=== PATIENT | male | born 1960 | race Caucasian/White ===

== ENCOUNTER 2016-10-11 23:04 | Inpatient (IN) | payer BC ==
[2016-10-11] MEDS ORDERED: Sodium Chloride 0.9% 1,000 ML IV SCH (23:45)
[2016-10-11] MEDS ORDERED: Sodium Chloride 0.9% 1,000 ML IV ONE ×2 (23:55)
--- NOTE | 2016-10-12 00:20 | EDM.PDOC ---
ED HPI GENERAL MEDICAL PROBLEM - General Chief Complaint: Head Injury Stated Complaint: PASSED OUT/VOMITING BLOOD Time Seen by Provider: 10/11/16 23:55 Source of Information: Reports: Patient, RN - History of Present Illness INITIAL COMMENTS - FREE TEXT/NARRATIVE: He felt abdominal discomfort yesterday. Then he had a grossly bloody stool today. He felt light headed . He fell and hit his head but without apparent injury He had some beers tonight with dinner. no he has lower abdominal discomfort - Related Data Allergies Allergy/AdvReac Type Severity Reaction Status Date / Time Iodinated Contrast Media - Allergy Hives Verified 05/23/16 19:49 Oral and Home Meds: Home Meds Aspirin [Lite Coat Aspirin] 325 mg PO DAILY 03/28/14 [History] Losartan/Hydrochlorothiazide [Losartan-HCTZ 100-12.5 MG] 1 tab PO DAILY [History] metFORMIN HCl [Metformin HCl] 500 mg PO BID 03/28/14 [History] Canagliflozin [Invokana] 300 mg PO DAILY 04/07/16 [History] Methylcellulose [Fiber] 500 mg PO DAILY 05/23/16 [History] Past Medical History Cardiovascular History: Reports: Hypertension Respiratory History: Denies: COPD Gastrointestinal History: Reports: Diverticulosis Neurological History: Denies: CVA, MS Endocrine/Metabolic History: Reports: Diabetes, Type II Dermatologic History: Reports: Cellulitis - Infectious Disease History Infectious Disease History: Reports: Chicken Pox - Past Surgical History GI Surgical History: Reports: Colonoscopy Social & Family History - Family History Family Medical History: Noncontributory - Tobacco Use Smoking Status *Q: Current Every Day Smoker Years of Tobacco use: 10 Packs/Tins Daily: 1 Second Hand Smoke Exposure: No - Caffeine Use Caffeine Use: Reports: Coffee - Alcohol Use Days Per Week of Alcohol Use: 3 Number of Drinks Per Day: 8 Total Drinks Per Week: 24 - Recreational Drug Use Recreational Drug Use: No ED ROS GENERAL - Review of Systems Review Of Systems: See Below Constitutional: Denies: Fever, Chills Respiratory: Denies: Shortness of Breath, Wheezing, Cough, Sputum, Hemoptysis Cardiovascular: Denies: Chest Pain GI/Abdominal: Reports: Bloody Stool. Denies: Hematemesis ED EXAM, HEAD INJURY - Physical Exam Exam: See Below General Appearance: No Apparent Distress Head: Normocephalic. No: Michael's Sign Throat/Mouth: Normal Inspection, Normal Voice Neck: Non-Tender Respiratory: No Respiratory Distress, Lungs Clear, Normal Breath Sounds Cardiovascular: Regular Rate, Rhythm GI/Abdominal Exam (Abbreviated): Normal Bowel Sounds, Soft, Other (diffuse lower abdominal tenderness greatest over the LLQ) Rectal (Males) Exam: Deferred Neurologic: dry cleaner presser II-XII nml As Tested, Oriented x 3 Course - Vital Signs Last Recorded V/S: Last Vital Signs Temp 96.7 F 10/11/16 23:20 Pulse 95 10/11/16 23:20 Resp 14 10/11/16 23:20 BP 105/68 10/11/16 23:20 Pulse Ox 96 10/11/16 23:20 - Orders/Labs/Meds Orders: Active Orders 24 hr Category Date Time Status Abdomen Pelvis wo Cont [CT] Stat Exams 10/12/16 00:48 Ordered UA W/MICROSCOPIC [URIN] Stat Lab 10/12/16 00:23 Uncollected Sodium Chloride 0.9% [Normal Saline] 1,000 ml Med 10/11/16 23:55 Active IV ONETIME Medication Orders Sodium Chloride (Normal Saline) 1,000 mls @ 150 mls/hr IV ONETIME ONE Stop: 10/12/16 06:34 Last Admin: 10/11/16 23:59 Dose: 150 mls/hr Labs: Laboratory Tests 10/11/16 10/11/16 10/11/16 Range/Units 00:14 23:23 23:40 WBC 17.05 H (4.0-11.0) K/uL RBC 4.49 L (4.50-5.90) M/uL Hgb 14.8 (13.0-17.0) g/dL Hct 42.1 (38.0-50.0) % MCV 93.8 (80.0-98.0) fL MCH 33.0 H (27.0-32.0) pg MCHC 35.2 (31.0-37.0) g/dL RDW Std Deviation 45.2 (28.0-62.0) fl RDW Coeff of Rajendra 13 (11.0-15.0) % Plt Count 183 (150-400) K/uL MPV 12.20 H (7.40-12.00) fL Add Manual Diff YES Neutrophils % (Manual) 81 H (48.0-80.0) % Lymphocytes % (Manual) 9 L (16.0-40.0) % Monocytes % (Manual) 10 (0.0-15.0) % Nucleated RBC % 0.0 /100WBC Absolute Seg Neuts 13.8 Lymphocytes # (Manual) 1.5 Monocytes # (Manual) 1.7 Nucleated RBCs # 0 K/uL Sodium 139 (136-146) mmol/L Potassium 3.9 (3.5-5.1) mmol/L Chloride 102 (98-110) mmol/L Carbon Dioxide 26 (21-31) mmol/L BUN 27 H (6.0-23.0) mg/dL Creatinine 1.3 (0.6-1.5) mg/dL Est Cr Clr Drug Dosing 57.94 mL/min Estimated GFR (MDRD) 57.3 ml/min Glucose 191 H (60-110) mg/dL POC Glucose 161 H (60-110) mg/dL Calcium 9.6 (8.8-10.8) mg/dL Total Bilirubin 1.6 H (0.1-1.5) mg/dL AST 17 (5-40) IU/L ALT 36 (8-54) IU/L Alkaline Phosphatase 60 (40-150) Total Protein 6.6 (6.0-8.0) g/dL Albumin 4.1 (3.5-5.0) g/dL Globulin 2.5 (2.0-3.5) g/dL Albumin/Globulin Ratio 1.6 (1.3-2.8) Ethyl Alcohol < 10.0 mg/dL Meds: Medications Generic Name Dose Route Start Last Admin Trade Name Freq PRN Reason Stop Dose Admin Sodium Chloride 1,000 mls @ 150 mls/hr 10/11/16 23:55 10/11/16 23:59 Normal Saline IV 10/12/16 06:34 150 mls/hr ONETIME ONE Administration Discontinued Medications Generic Name Dose Route Start Last Admin Trade Name Freq PRN Reason Stop Dose Admin Hydromorphone HCl 2 mg 10/12/16 01:13 10/12/16 01:17 Dilaudid IVPUSH 10/12/16 01:14 2 mg ONETIME ONE Administration Sodium Chloride 1,000 mls @ 150 mls/hr 10/11/16 23:45 Normal Saline IV ASDIRECTED ROMEL Sodium Chloride 1,000 mls @ 150 mls/hr 10/11/16 23:55 Normal Saline IV 10/12/16 06:34 ONETIME ONE Metronidazole 500 mg/ Premix 100 mls @ 100 mls/hr 10/12/16 00:23 10/12/16 00: 37 IV 10/12/16 01:22 100 mls/hr ONETIME ONE Administration Ondansetron HCl 4 mg 10/12/16 01:38 10/12/16 01:44 Zofran IVPUSH 10/12/16 01:39 4 mg ONETIME ONE Administration - Re-Assessments/Exams Free Text/Narrative Re-Assessment/Exam: 10/12/16 02:04 I discussed with him that the CT scan shows fatty liver. I advised that this might be related to his DM and I advised avoiding alcohol in light of his fatty liver disease. Departure - Departure Time of Disposition: 02:03 Disposition: Admitted As Inpatient 67 Clinical Impression: Acute diverticulitis - Discharge Information Forms: ED Department Discharge - My Orders Last 24 Hours: My Active Orders 10/11/16 23:55 Sodium Chloride 0.9% [Normal Saline] 1,000 ml IV ONETIME 10/12/16 00:23 UA W/MICROSCOPIC [URIN] Stat 10/12/16 00:48 Abdomen Pelvis wo Cont [CT] Stat - Assessment/Plan Last 24 Hours: My Active Orders 10/11/16 23:55 Sodium Chloride 0.9% [Normal Saline] 1,000 ml IV ONETIME 10/12/16 00:23 UA W/MICROSCOPIC [URIN] Stat 10/12/16 00:48 Abdomen Pelvis wo Cont [CT] Stat
[2016-10-12] MEDS ORDERED: metroNIDAZOLE/Normal Saline 500 MG in Premix Bag 1 BAG IV ONE (00:23)
[2016-10-12 00:44] LABS: CHLORIDE,CL 102 mmol/L (98-110); SODIUM,NA 139 mmol/L (136-146)
[2016-10-12] MEDS ORDERED: HYDROmorphone 1 MG/ML Syringe IVPUSH ONE (01:13)
[2016-10-12] MEDS ORDERED: Ondansetron 4 MG/2 ML SDV IVPUSH ONE (01:38)
[2016-10-12] MEDS ORDERED: Temazepam 15 MG Cap PO PRN (02:05)
[2016-10-12] MEDS ORDERED: Ondansetron 4 MG/2 ML SDV IVPUSH PRN (02:05)
[2016-10-12] MEDS ORDERED: Morphine 10 MG/ML Syringe IVPUSH PRN (02:05)
[2016-10-12] MEDS ORDERED: Acetaminophen 325 MG Tab PO PRN (02:05)
[2016-10-12] MEDS: Ciprofloxacin in D5W 400 MG in Premix Bag 1 BAG IV SCH ×4 (02:47→14:27)
[2016-10-12 05:37] LABS: CHLORIDE,CL 110 mmol/L (98-110); SODIUM,NA 142 mmol/L (136-146)
[2016-10-12] MEDS: metroNIDAZOLE/Normal Saline 500 MG in Premix Bag 1 BAG IV SCH ×3 (06:06→18:08)
[2016-10-12] MEDS ORDERED: Insulin Aspart 100 Units/ML 3 ML Pen SUBCUT SCH ×2 (07:30→12:00)
--- NOTE | 2016-10-12 08:04 | PCM.HP ---
H&P History of Present Illness - General Date of Service: 10/12/16 Admit Problem/Dx: Admission Diagnosis/Problem Admission Diagnosis/Problem Diverticulitis Source of Information: Patient History Limitations: Reports: No Limitations - History of Present Illness Initial Comments - Free Text/Narative: This 56 year old male with pmh of DM type 2, HTN and diverticulosis presented to the ED last evening with complaints of abdominal pain, bloody stools and nausea. He reports 2 days ago he felt some lower abdominal pain and decreased his oral intake. Yesterday He was feeling better around lunch time so he ate some chicken and vegetables and tolerated that well. Around supper time he felt hungry ate and him and his went out to eat, had 2 beers and some nachos, which went well. It was later around 9 pm he suddenly needed to use the bathroom and have lower abdominal pain. The stool was "pure blood" and diarrhea. This happened a few more times and he passed out when he was going to the bathroom. He was then brought to the ED with his . He reports having a episode of diverticulitis in Apr 2016,in which he was hospitalized, treated with bowel rest, IVFs and antibiotics. He saw a surgeon during that admission and she recommended a colonoscopy after that episode had resolved. He had not since follow through with this. His last colonoscopy was with Dr. Baum 5-6 years ago, which the patient reported it was normal, except for diverticulosis. He has never have bloody stools before and this makes him very nervous. He denies recent out of the country travel, no recent antibiotics, no iffy foods or sushi, and pets he is around are health with no diarrhea. He denies headache , fevers, chest pain or palpitations. No urinary symptoms. The abdominal pain is located mainly across the lower abdomen, dull achey in feeling 3/10 at this time. No nausea or vomiting. No further diarrhea, but feels like he might need to go soon. In the ED leukocytosis noted, 17,050, hgb 14.8 BUN 27, Cr 1.3, BS 191, Bili 1.6 AST/ALT WNL. VS WNL no fever noted. CT of abdomen revealed acute diverticulitis along the mid descending color without perforation or abscess. He was given IVFs , Ciprofloxacin and Flagyl in the ED. He was admitted for acute diverticulitis. PCP, Dr. Laguerre. Abdomen Pain Score (Numeric/FACES): 3 - Related Data Allergies/Adverse Reactions: Allergies Allergy/AdvReac Type Severity Reaction Status Date / Time Iodinated Contrast Media - Allergy Hives Verified 05/23/16 19:49 Oral and Home Medications: Home Meds Aspirin [Lite Coat Aspirin] 325 mg PO DAILY 03/28/14 [History] Losartan/Hydrochlorothiazide [Losartan-HCTZ 100-12.5 MG] 1 tab PO DAILY [History] metFORMIN HCl [Metformin HCl] 500 mg PO BID 03/28/14 [History] Canagliflozin [Invokana] 300 mg PO DAILY 04/07/16 [History] Methylcellulose [Fiber] 500 mg PO DAILY 05/23/16 [History] Past Medical History Cardiovascular History: Reports: Hypertension. Denies: Afib, Blood Clots/VTE/ DVT, High Cholesterol, OR Respiratory History: Reports: None. Denies: Asthma, COPD, PE Gastrointestinal History: Reports: Diverticulosis. Denies: GI Bleed Musculoskeletal History: Reports: None Neurological History: Reports: None Endocrine/Metabolic History: Reports: Diabetes, Type II, Obesity/BMI 30+. Denies: Hypothyroidism Dermatologic History: Reports: Cellulitis - Infectious Disease History Infectious Disease History: Reports: Chicken Pox - Past Surgical History Respiratory Surgical History: Reports: None GI Surgical History: Reports: Colonoscopy Social & Family History - Family History Family Medical History: Noncontributory - Tobacco Use Smoking Status *Q: Never Smoker Tobacco Use Within Last Twelve Months: Smokeless Tobacco Years of Tobacco use: 10 Packs/Tins Daily: 1 Second Hand Smoke Exposure: No - Caffeine Use Caffeine Use: Reports: Coffee - Alcohol Use Days Per Week of Alcohol Use: 1 Number of Drinks Per Day: 6 Total Drinks Per Week: 6 Date of Last Drink: 10/12/16 Time of Last Drink: 18:00 Alcohol Use Frequency: Socially - Recreational Drug Use Recreational Drug Use: No - Living Situation & Occupation Living situation: Reports: Occupation: Employed H&P Review of Systems - Review of Systems: Review Of Systems: See Below General: Reports: No Symptoms. Denies: Fever, Chills, Malaise HEENT: Reports: No Symptoms, Post Nasal Drip. Denies: Headaches, Sinus Congestion, Sore Throat Pulmonary: Reports: No Symptoms. Denies: Shortness of Breath, Cough, Sputum Cardiovascular: Reports: No Symptoms. Denies: Chest Pain, Palpitations, Dyspnea on Exertion, Edema Gastrointestinal: Reports: Abdominal Pain, Bloody Stool, Diarrhea, Flatus, Nausea. Denies: Distension, Vomiting Genitourinary: Reports: No Symptoms. Denies: Dysuria, Frequency, Burning, Retention, Flank Pain Musculoskeletal: Reports: No Symptoms. Denies: Neck Pain, Back Pain Skin: Reports: No Symptoms Psychiatric: Reports: No Symptoms Neurological: Reports: No Symptoms Hematologic/Lymphatic: Reports: No Symptoms Immunologic: Reports: No Symptoms Exam - Exam Exam: See Below - Vital Signs Vital Signs: Last Vital Signs Temp 97.8 F 10/12/16 07:00 Pulse 87 10/12/16 07:00 Resp 16 10/12/16 07:00 BP 100/68 10/12/16 07:00 Pulse Ox 95 10/12/16 07:00 Weight: 88 kg - Exam General: Alert, Oriented, Cooperative HEENT: Conjunctiva Clear, Mucosa Moist & [place], Nares Patent, Posterior Pharynx Clear, Pupils Reactive Neck: Supple, Trachea Midline. No: JVD Lungs: Clear to Auscultation, Normal Respiratory Effort Cardiovascular: Regular Rate, Regular Rhythm Abdomen: Normal Bowel Sounds, Soft, Tenderness (across lower abdomena and LLQ). No: Distention, Guarding, Rigidity, Rebound Back Exam: Normal Inspection, Full Range of Motion Extremities: Normal Inspection, Normal Pulses. No: Edema Neurological: Cranial Nerves Intact Neuro Extensive - Mental Status: Alert, Oriented x3, Normal Mood/Affect, Normal Cognition Neuro Extensive - Motor, Sensory, Reflexes: Normal Gait Psychiatric: Alert, Normal Affect, Normal Mood - Patient Data Lab Results last 24 hrs: Laboratory Results - last 24 hr 10/12/16 10/12/16 Range/Units 04:35 04:35 WBC 13.47 H (4.0-11.0) K/uL RBC 4.18 L (4.50-5.90) M/uL Hgb 13.5 (13.0-17.0) g/dL Hct 39.9 (38.0-50.0) % MCV 95.5 (80.0-98.0) fL MCH 32.3 H (27.0-32.0) pg MCHC 33.8 (31.0-37.0) g/dL RDW Std Deviation 45.3 (28.0-62.0) fl RDW Coeff of Rajendra 13 (11.0-15.0) % Plt Count 235 (150-400) K/uL MPV 10.50 (7.40-12.00) fL Add Manual Diff YES Neutrophils % (Manual) 85 H (48.0-80.0) % Band Neutrophils % 2 % Lymphocytes % (Manual) 9 L (16.0-40.0) % Monocytes % (Manual) 4 (0.0-15.0) % Nucleated RBC % 0.0 /100WBC Absolute Seg Neuts 11.4 Band Neutrophils # 0.3 Lymphocytes # (Manual) 1.2 Monocytes # (Manual) 0.5 Nucleated RBCs # 0 K/uL Sodium 142 (136-146) mmol/L Potassium 4.6 (3.5-5.1) mmol/L Chloride 110 (98-110) mmol/L Carbon Dioxide 21 (21-31) mmol/L BUN 26 H (6.0-23.0) mg/dL Creatinine 0.9 (0.6-1.5) mg/dL Est Cr Clr Drug Dosing 83.69 mL/min Estimated GFR (MDRD) > 60.0 ml/min Glucose 156 H (60-110) mg/dL Calcium 8.9 (8.8-10.8) mg/dL Result Diagrams: 10/12/16 04:35 10/12/16 04:35 *Q Meaningful Use (ADM) - VTE *Q VTE Criteria *Q: - VTE Risk Assess *Q Each Risk Factor Represents 1 Point: Age 41 - 59 years, History Inflammatory Bowel Disease, Obesity (BMI greater than 30) Total Score 1 Point Risk Factors: 3 Each Risk Factor Represents 2 Points: None Total Score 2 Point Risk Factors: 0 Each Risk Factor Represents 3 Points: None Total Score 3 Point Risk Factors: 0 Each Risk Factor Represents 5 Points: None Total Score 5 Point Risk Factors: 0 Venous Thromboembolism Risk Factor Score *Q: 3 - Stroke *Q Stroke Criteria *Q: - AMI *Q AMI Criteria *Q: - Problem List (1) Acute diverticulitis SNOMED Code(s): 754326162 ICD Code: K57.92 - DVTRCLI OF INTEST, PART UNSP, W/O PERF OR ABSCESS W/O BLEED Status: Acute Current Visit: Yes (2) DM type 2 (diabetes mellitus, type 2) SNOMED Code(s): 28771836 ICD Code: E11.9 - TYPE 2 DIABETES MELLITUS WITHOUT COMPLICATIONS Status: Chronic Current Visit: Yes Qualifiers: Diabetes mellitus complication status: without complication Diabetes mellitus jail insulin use: without manager intermediate use Qualified Code(s): E11.9 - Type 2 diabetes mellitus without complications (3) HTN (hypertension) SNOMED Code(s): 15233390 ICD Code: I10 - ESSENTIAL (PRIMARY) HYPERTENSION Status: Chronic Current Visit: Yes Qualifiers: Hypertension type: essential hypertension Qualified Code(s): I10 - Essential (primary) hypertension (4) Obesity (BMI 30.0-34.9) SNOMED Code(s): 209143124 ICD Code: E66.9 - OBESITY, UNSPECIFIED Status: Chronic Current Visit: Yes Problem List Initiated/Reviewed/Updated: Yes Orders Last 24hrs: Active Orders 24 hr Category Date Time Status Blood Glucose Check, Bedside [] QIDACANDBED Care 10/12/16 02:11 Active NPO [Nothing Per Oral Diet] [DIET] Diet 10/12/16 Breakfast Ordered Canagliflozin [Invokana] Med 10/12/16 09:00 Active 300 mg PO DAILY Insulin Aspart [NovoLOG] Med 10/12/16 07:30 Active See Protocol SUBCUT ACBREAKFASTANDBED Losartan/Hydrochlorothiazide [Losartan-HCTZ 100-12.5 MG Med 10/12/16 09:00 Active ] 1 tab PO DAILY Medication Orders Acetaminophen (Tylenol) 650 mg PO Q4H PRN PRN Reason: Pain (Mild 1-3)/fever Sodium Chloride (Normal Saline) 1,000 mls @ 100 mls/hr IV ONETIME ONE Stop: 10/12/16 09:54 Last Admin: 10/11/16 23:59 Dose: 150 mls/hr Ciprofloxacin/Dextrose 400 mg/ (Premix) 200 mls @ 200 mls/hr IV Q12H ROMEL Last Admin: 10/12/16 02:47 Dose: 200 mls/hr Metronidazole 500 mg/ Premix 100 mls @ 100 mls/hr IV Q6H ROMEL Last Admin: 10/12/16 06:06 Dose: 100 mls/hr Insulin Aspart (Novolog) 0 unit SUBCUT ACBREAKFASTANDBED ROMEL PRN Reason: Protocol Last Admin: 10/12/16 06:54 Dose: Not Given Morphine Sulfate (Morphine) 4 mg IVPUSH Q2H PRN PRN Reason: Pain (severe 7-10) Stop: 10/13/16 02:07 Last Admin: 10/12/16 03:40 Dose: 4 mg Non-Formulary Medication (Losartan/Hydrochlorothiazide [Losartan-Hctz 100-12.5 Mg]) 1 tab PO DAILY ROMEL Non-Formulary Medication (Canagliflozin [Invokana]) 300 mg PO DAILY [facility] Ondansetron HCl (Zofran) 4 mg IVPUSH Q4H PRN PRN Reason: Nausea Temazepam (Restoril) 15 mg PO BEDTIME PRN PRN Reason: Sleep Assessment/Plan Comment:: This 56 year old male admitted with acute diverticulitis 1. Acute diverticulitis: Will treat with Ciprofloxacin and Flagy, Leukocytosis improving. IVFs, bowel rest and analgesia PRN. Ice chips ok. Will obtain stool studies due to diarrhea and ronaldo blood. Check hemoccult. Hgb 13.5 this morning , will recheck H/H this afternoon. No stools since admission. Will arrange follow up with Dr Keen, per patient request, for possible endoscopy after resolution of flare. 2. DM type 2: Hold po meds, Novolog SSI and monitor BS Q6hr while NPO 3. HTN: Hold PO meds for now, stable. Monitor. VTE prohlyaxis: SCDs only due to bloody stool reported by patient Dispo: 1-3 days pending improvement.
[2016-10-12] MEDS ORDERED: Morphine 4 MG/ML Syringe IVPUSH PRN (08:18)
[2016-10-12] MEDS ORDERED: Non-Formulary Medication 1 Each (Canagliflozin [Invokana] 300 MG) PO SCH (09:00)
[2016-10-12] MEDS: Sodium Chloride 0.9% 1,000 ML IV SCH ×2 (09:08→20:27)
[2016-10-12] MEDS: Pantoprazole 40 MG in Sodium Chloride 0.9% 10 ML IVPUSH SCH ×2 (09:15→20:27)
--- NOTE | 2016-10-12 10:53 | CT ---
EXAM DATE: 10/12/16 PATIENT'S AGE: 56 Patient: NICOLAS OWENS Facility: [place], [place] Site . Site : [id number] Study: CT Abdomen/Pelvis [id number]/18/2017 1:42:03 AM Ordering Physician: Katalina Lyon Final Report: INDICATION: abd pain TECHNIQUE: CT abdomen and pelvis without contrast. COMPARISON: May 23, 2016. FINDINGS: Lower chest: Unremarkable. Liver: Mild diffuse fatty infiltration of the liver. Spleen: Unremarkable. Pancreas: Unremarkable. Gallbladder and bile ducts: Unremarkable. Kidneys: Unremarkable. No kidney or ureteral stones and no hydronephrosis. Adrenal glands: Stable macroscopic fat containing 6 mm lesion within the right adrenal gland consistent with a angiomyolipoma. GI tract: Acute diverticulitis along the mid descending colon with no evidence of perforation or abscess formation. . Appendix is normal. Vascular structures: Atherosclerotic disease. Lymph nodes: Unremarkable. Miscellaneous: Unremarkable. No free air or significant free fluid. Pelvic Organs: Enlarged prostate associated prostatic calcifications. Bones: Degenerative changes. IMPRESSION: Acute diverticulitis along the mid descending colon with no evidence of perforation or abscess formation. The remainder of the examination is otherwise stable as described above. . Dictated by Will Bagley MD @ 10/12/2016 1:57:57 AM Dictated by: Will Bagley MD @ 10/12/2016 01:58:13 (Electronic Signature) Report Signed by Proxy. [facility]
[2016-10-12] MEDS: Insulin Aspart 100 Units/ML 3 ML Pen SUBCUT SCH (17:24)
[2016-10-13] MEDS: metroNIDAZOLE/Normal Saline 500 MG in Premix Bag 1 BAG IV SCH ×2 (00:30→06:22)
[2016-10-13] MEDS: Ciprofloxacin in D5W 400 MG in Premix Bag 1 BAG IV SCH ×2 (01:39)
[2016-10-13 05:33] LABS: CHLORIDE,CL 110 mmol/L (98-110); SODIUM,NA 140 mmol/L (136-146)
[2016-10-13] MEDS: Sodium Chloride 0.9% 1,000 ML IV SCH (06:22)
[2016-10-13] MEDS: Insulin Aspart 100 Units/ML 3 ML Pen SUBCUT SCH ×2 (06:29→12:28)
[2016-10-13] MEDS: Pantoprazole 40 MG in Sodium Chloride 0.9% 10 ML IVPUSH SCH (07:34)
[2016-10-13 07:39] VITALS: BP 114/77
--- NOTE | 2016-10-13 08:50 | PCM.DCSUM1 ---
Discharge Summary - Hospital Course Brief History: This 56 year old male with pmh of DM type 2, HTN and diverticulosis presented to the ED 10/12/2016 evening with complaints of abdominal pain, bloody stools and nausea. He reports 2 days prior to coming to the ED, he felt some lower abdominal pain and decreased his oral intake. 2016, he was feeling better around lunch time so he ate some chicken and vegetables and tolerated that well. Around supper time he felt hungry ate and him and his went out to eat, had 2 beers and some nachos, which went well. It was later around 9 pm he suddenly needed to use the bathroom and have lower abdominal pain. The stool was "pure blood" and diarrhea. This happened a few more times and he passed out when he was going to the bathroom. He was then brought to the ED with his . He reports having a episode of diverticulitis in Apr 2016,in which he was hospitalized, treated with bowel rest, IVFs and antibiotics. He saw a surgeon during that admission and she recommended a colonoscopy after that episode had resolved. He had not since follow through with this. His last colonoscopy was with Dr. Baum 5-6 years ago, which the patient reported it was normal, except for diverticulosis. He has never have bloody stools before and this makes him very nervous. He denies recent out of the country travel, no recent antibiotics, no iffy foods or sushi, and pets he is around are health with no diarrhea. He denies headache, fevers, chest pain or palpitations. No urinary symptoms. The abdominal pain is located mainly across the lower abdomen, dull achey in feeling 3/10 at this time. No nausea or vomiting. No further diarrhea. In the ED leukocytosis noted, 17,050, hgb 14.8 BUN 27, Cr 1.3, BS 191, Bili 1.6 AST/ALT WNL. VS WNL no fever noted. CT of abdomen revealed acute diverticulitis along the mid descending color without perforation or abscess. He was given IVFs, Ciprofloxacin and Flagyl in the ED. He was admitted for acute diverticulitis. PCP, Dr. Laguerre. - Discharge Data Discharge Date: 10/13/16 Discharge Disposition: Home, Self-Care 01 Condition: Fair - Discharge Diagnosis/Problem(s) (1) Acute diverticulitis SNOMED Code(s): 294655823 ICD Code: K57.92 - DVTRCLI OF INTEST, PART UNSP, W/O PERF OR ABSCESS W/O BLEED Status: Acute Current Visit: Yes (2) DM type 2 (diabetes mellitus, type 2) SNOMED Code(s): 57104083 ICD Code: E11.9 - TYPE 2 DIABETES MELLITUS WITHOUT COMPLICATIONS Status: Chronic Current Visit: Yes Qualifiers: Diabetes mellitus complication status: without complication Diabetes mellitus intermediate insulin use: without intermediate school teacher use Qualified Code(s): E11.9 - Type 2 diabetes mellitus without complications (3) HTN (hypertension) SNOMED Code(s): 35896944 ICD Code: I10 - ESSENTIAL (PRIMARY) HYPERTENSION Status: Chronic Current Visit: Yes Qualifiers: Hypertension type: essential hypertension Qualified Code(s): I10 - Essential (primary) hypertension (4) Obesity (BMI 30.0-34.9) SNOMED Code(s): 237338310 ICD Code: E66.9 - OBESITY, UNSPECIFIED Status: Chronic Current Visit: Yes - Patient Instructions Diet: GI Soft/Low Residue/Low Fiber Activity: As Tolerated Showering/Bathing: May Shower Notify Provider of: Fever, Increased Pain, Swelling and Redness, Drainage, Nausea and/or Vomiting Other/Special Instructions: No alochol consumption while taking antibiotics. - Discharge Plan Home Medications: Home Meds RX: Aspirin [Lite Coat Aspirin] 325 mg PO DAILY 03/28/14 [History] RX: Losartan/Hydrochlorothiazide [Losartan-HCTZ 100-12.5 MG] 1 tab PO DAILY 06/10 [History] RX: metFORMIN HCl [Metformin HCl] 500 mg PO BID 03/28/14 [History] RX: Canagliflozin [Invokana] 300 mg PO DAILY 04/07/16 [History] RX: Methylcellulose [Fiber] 500 mg PO DAILY 05/23/16 [History] Patient Handouts: Diverticulitis, [id number] Referrals: Kaylee Keen MD [Physician] - 10/27/16 9:30 am Sachin Laguerre MD [Primary Care Provider] - 10/19/16 1:45 pm - Discharge Summary/Plan Comment DC Time >30 min.: No Discharge Summary/Plan Comment: Discharge Diagnoses; Acute diverticulitis without perforation or abscess, with bleeding HTN DM Type 2 Diverticulosis Lloyd was admitted and treated with bowel rest, IVFs, and Ciprofloxacin and Flagyl. He needed very little analgesia for pain. Last evening he was requesting some CL, allowed this and tolerated them well overnight without N/V or increased pain. This morning diet was advanced to FL. He is tolerating this and very eager for discharge. He has had no further stools in the hospital. He is passing gas. Hgb did decreased to 12.6 after admission, but has remained stable overnight, today 12.1. We have arranged appointments with Dr. Keen, general surgeon for follow and and endoscopy. I also spoke with PCP, Dr Laguerre who is aware of admission and will follow up with patient next week in clinic. I will discharge Lloyd home today with Cipro and Flagyl for another 12 days, total of 14 day course. I have encouraged him to keep soft low fiber diet for the next 2 weeks and then slowly introduce fibrous foods and his daily fiber supplement and continue with high fiber diet. He is to return to clinic or ED if concerns should arise. - General Info Date of Service: 10/13/16 Admission Dx/Problem (Free Text: Admission Diagnosis/Problem Admission Diagnosis/Problem Diverticulitis Subjective Update: Eager to have some oatmeal. Tolerating CL diet well, with no N/V or increased pain. Only has some tenderness to lower left abdomen and slightly extending up to LUQ. He denies any further BMs since the bloody ones at home prior to admission, he is passing flatus. No chest pain or SOB. Very eager for discharge today. Functional Status: Reports: pain controlled, tolerating diet, ambulating, urinating - Review of Systems General: Reports: No Symptoms HEENT: Reports: no symptoms Pulmonary: Reports: no symptoms. Denies: shortness of breath, cough, sputum Cardiovascular: Reports: No Symptoms. Denies: Chest Pain, Edema Gastrointestinal: Reports: Abdominal pain (tenderness to Left lower abdomen and slight extending up to LUQ), Flatus. Denies: Diarrhea, Nausea, Vomiting Genitourinary: Reports: no symptoms. Denies: dysuria, frequency, burning Musculoskeletal: Reports: no symptoms Skin: Reports: no symptoms Neurological: Reports: No Symptoms Psychiatric: Reports: no symptoms - Patient Data Vitals - Most Recent: Last Vital Signs Temp 98.2 F 10/13/16 07:38 Pulse 77 10/13/16 07:38 Resp 14 10/13/16 07:38 BP 114/77 10/13/16 07:38 Pulse Ox 95 10/13/16 07:38 Weight - Most Recent: 88 kg I&O - Last 24 hours: Intake & Output 10/12/16 10/13/16 10/13/16 22:59 06:59 14:59 Intake Total 1330 2150 Output Total 800 2400 Balance 530 -250 Lab Results - Last 24 hrs: Laboratory Results - last 24 hr 10/12/16 10/12/16 10/12/16 Range/Units 06:31 06:45 11:33 WBC (4.0-11.0) K/uL RBC (4.50-5.90) M/uL Hgb (13.0-17.0) g/dL Hct (38.0-50.0) % MCV (80.0-98.0) fL MCH (27.0-32.0) pg MCHC (31.0-37.0) g/dL RDW Std Deviation (28.0-62.0) fl RDW Coeff of Rajendra (11.0-15.0) % Plt Count (150-400) K/uL MPV (7.40-12.00) fL Neut % (Auto) (48.0-80.0) % Lymph % (Auto) (16.0-40.0) % Simpson % (Auto) (0.0-15.0) % Eos % (Auto) (0.0-7.0) % Baso % (Auto) (0.0-1.5) % Neut # (Auto) (1.4-5.7) K/uL Lymph # (Auto) (0.6-2.4) K/uL Simpson # (Auto) (0.0-0.8) K/uL Eos # (Auto) (0.0-0.7) K/uL Baso # (Auto) (0.0-0.1) K/uL Nucleated RBC % /100WBC Nucleated RBCs # K/uL Sodium (136-146) mmol/L Potassium (3.5-5.1) mmol/L Chloride (98-110) mmol/L Carbon Dioxide (21-31) mmol/L BUN (6.0-23.0) mg/dL Creatinine (0.6-1.5) mg/dL Est Cr Clr Drug Dosing mL/min Estimated GFR (MDRD) ml/min Glucose (60-110) mg/dL POC Glucose 118 H 102 (60-110) mg/dL Calcium (8.8-10.8) mg/dL Urine Color YELLOW Urine Appearance CLEAR Urine pH 5.5 (5.0-8.0) Ur Specific [place] 1.025 (1.001-1.035) Urine Protein NEGATIVE (NEGATIVE) mg/dL Urine Glucose (UA) >=1000 (NEGATIVE) mg/dL Urine Ketones 15 H (NEGATIVE) mg/dL Urine Occult Blood NEGATIVE (NEGATIVE) Urine Nitrite NEGATIVE (NEGATIVE) Urine Bilirubin NEGATIVE (NEGATIVE) Urine Urobilinogen 0.2 (<2.0) EU/dL Ur Leukocyte Esterase NEGATIVE (NEGATIVE) Urine RBC 0-1 (0-2/HPF) Urine WBC 0-1 (0-5/HPF) Ur Epithelial Cells RARE (NONE-FEW) Amorphous Sediment RARE (NEGATIVE) Urine Bacteria RARE (NEGATIVE) 10/12/16 10/12/16 10/13/16 Range/Units 13:04 16:25 00:37 WBC (4.0-11.0) K/uL RBC (4.50-5.90) M/uL Hgb 12.6 L (13.0-17.0) g/dL Hct 38.0 (38.0-50.0) % MCV (80.0-98.0) fL MCH (27.0-32.0) pg MCHC (31.0-37.0) g/dL RDW Std Deviation (28.0-62.0) fl RDW Coeff of Rajendra (11.0-15.0) % Plt Count (150-400) K/uL MPV (7.40-12.00) fL Neut % (Auto) (48.0-80.0) % Lymph % (Auto) (16.0-40.0) % Simpson % (Auto) (0.0-15.0) % Eos % (Auto) (0.0-7.0) % Baso % (Auto) (0.0-1.5) % Neut # (Auto) (1.4-5.7) K/uL Lymph # (Auto) (0.6-2.4) K/uL Simpson # (Auto) (0.0-0.8) K/uL Eos # (Auto) (0.0-0.7) K/uL Baso # (Auto) (0.0-0.1) K/uL Nucleated RBC % /100WBC Nucleated RBCs # K/uL Sodium (136-146) mmol/L Potassium (3.5-5.1) mmol/L Chloride (98-110) mmol/L Carbon Dioxide (21-31) mmol/L BUN (6.0-23.0) mg/dL Creatinine (0.6-1.5) mg/dL Est Cr Clr Drug Dosing mL/min Estimated GFR (MDRD) ml/min Glucose (60-110) mg/dL POC Glucose 92 103 (60-110) mg/dL Calcium (8.8-10.8) mg/dL Urine Color Urine Appearance Urine pH (5.0-8.0) Ur Specific [place] (1.001-1.035) Urine Protein (NEGATIVE) mg/dL Urine Glucose (UA) (NEGATIVE) mg/dL Urine Ketones (NEGATIVE) mg/dL Urine Occult Blood (NEGATIVE) Urine Nitrite (NEGATIVE) Urine Bilirubin (NEGATIVE) Urine Urobilinogen (<2.0) EU/dL Ur Leukocyte Esterase (NEGATIVE) Urine RBC (0-2/HPF) Urine WBC (0-5/HPF) Ur Epithelial Cells (NONE-FEW) Amorphous Sediment (NEGATIVE) Urine Bacteria (NEGATIVE) 10/13/16 10/13/16 10/13/16 Range/Units 04:55 04:55 06:27 WBC 6.73 (4.0-11.0) K/uL RBC 3.74 L (4.50-5.90) M/uL Hgb 12.1 L (13.0-17.0) g/dL Hct 35.7 L (38.0-50.0) % MCV 95.5 (80.0-98.0) fL MCH 32.4 H (27.0-32.0) pg MCHC 33.9 (31.0-37.0) g/dL RDW Std Deviation 45.1 (28.0-62.0) fl RDW Coeff of Rajendra 13 (11.0-15.0) % Plt Count 198 (150-400) K/uL MPV 10.20 (7.40-12.00) fL Neut % (Auto) 67.1 (48.0-80.0) % Lymph % (Auto) 23.0 (16.0-40.0) % Simpson % (Auto) 7.3 (0.0-15.0) % Eos % (Auto) 1.9 (0.0-7.0) % Baso % (Auto) 0.7 (0.0-1.5) % Neut # (Auto) 4.5 (1.4-5.7) K/uL Lymph # (Auto) 1.6 (0.6-2.4) K/uL Simpson # (Auto) 0.5 (0.0-0.8) K/uL Eos # (Auto) 0.1 (0.0-0.7) K/uL Baso # (Auto) 0.1 (0.0-0.1) K/uL Nucleated RBC % 0.0 /100WBC Nucleated RBCs # 0 K/uL Sodium 140 (136-146) mmol/L Potassium 3.7 (3.5-5.1) mmol/L Chloride 110 (98-110) mmol/L Carbon Dioxide 23 (21-31) mmol/L BUN 13 (6.0-23.0) mg/dL Creatinine 0.8 (0.6-1.5) mg/dL Est Cr Clr Drug Dosing 94.15 mL/min Estimated GFR (MDRD) > 60.0 ml/min Glucose 108 (60-110) mg/dL POC Glucose 102 (60-110) mg/dL Calcium 8.4 L (8.8-10.8) mg/dL Urine Color Urine Appearance Urine pH (5.0-8.0) Ur Specific [place] (1.001-1.035) Urine Protein (NEGATIVE) mg/dL Urine Glucose (UA) (NEGATIVE) mg/dL Urine Ketones (NEGATIVE) mg/dL Urine Occult Blood (NEGATIVE) Urine Nitrite (NEGATIVE) Urine Bilirubin (NEGATIVE) Urine Urobilinogen (<2.0) EU/dL Ur Leukocyte Esterase (NEGATIVE) Urine RBC (0-2/HPF) Urine WBC (0-5/HPF) Ur Epithelial Cells (NONE-FEW) Amorphous Sediment (NEGATIVE) Urine Bacteria (NEGATIVE) Med Orders - Current: Current Medications Acetaminophen (Tylenol) 650 mg PO Q4H PRN PRN Reason: Pain (Mild 1-3)/fever Ciprofloxacin/Dextrose 400 mg/ (Premix) 200 mls @ 200 mls/hr IV Q12H [facility] Last Admin: 10/13/16 01:39 Dose: 200 mls/hr Metronidazole 500 mg/ Premix 100 mls @ 100 mls/hr IV Q6H [facility] Last Admin: 10/13/16 06:22 Dose: 100 mls/hr Pantoprazole Sodium 40 mg/ (Sodium Chloride) 10 mls @ 300 mls/hr IVPUSH Q12H [facility] Last Admin: 10/13/16 07:34 Dose: 300 mls/hr Sodium Chloride (Normal Saline) 1,000 mls @ 125 mls/hr IV ASDIRECTED [facility] Last Admin: 10/13/16 06:22 Dose: 125 mls/hr Insulin Aspart (Novolog) 0 unit SUBCUT TIDAC [facility] PRN Reason: Protocol Last Admin: 10/13/16 06:29 Dose: Not Given Morphine Sulfate (Morphine) 4 mg IVPUSH Q2H PRN PRN Reason: Pain (severe 7-10) Ondansetron HCl (Zofran) 4 mg IVPUSH Q4H PRN PRN Reason: Nausea Discontinued Medications Hydromorphone HCl (Dilaudid) 2 mg IVPUSH ONETIME ONE Stop: 10/12/16 01:14 Last Admin: 10/12/16 01:17 Dose: 2 mg Sodium Chloride (Normal Saline) 1,000 mls @ 150 mls/hr IV ASDIRECTED [facility] Sodium Chloride (Normal Saline) 1,000 mls @ 150 mls/hr IV ONETIME ONE Stop: 10/12/16 06:34 Sodium Chloride (Normal Saline) 1,000 mls @ 100 mls/hr IV ONETIME ONE Stop: 10/12/16 09:54 Last Admin: 10/11/16 23:59 Dose: 150 mls/hr Metronidazole 500 mg/ Premix 100 mls @ 100 mls/hr IV ONETIME ONE Stop: 10/12/16 01:22 Last Admin: 10/12/16 00:37 Dose: 100 mls/hr Insulin Aspart (Novolog) 0 unit SUBCUT ACBREAKFASTANDBED [facility] PRN Reason: Protocol Last Admin: 10/12/16 06:54 Dose: Not Given Insulin Aspart (Novolog) 0 unit SUBCUT Q6H [facility] PRN Reason: Protocol Last Admin: 10/12/16 11:55 Dose: Not Given Morphine Sulfate (Morphine) 4 mg IVPUSH Q2H PRN PRN Reason: Pain (severe 7-10) Last Admin: 10/12/16 03:40 Dose: 4 mg Non-Formulary Medication (Losartan/Hydrochlorothiazide [Losartan-Hctz 100-12.5 Mg]) 1 tab PO DAILY [facility] Non-Formulary Medication (Canagliflozin [Invokana]) 300 mg PO DAILY [facility] Ondansetron HCl (Zofran) 4 mg IVPUSH ONETIME ONE Stop: 10/12/16 01:39 Last Admin: 10/12/16 01:44 Dose: 4 mg Temazepam (Restoril) 15 mg PO BEDTIME PRN PRN Reason: Sleep - Exam General: Reports: alert, oriented, cooperative HEENT: Reports: Pupils equal, Pupils reactive, EOMI, Mucous membr. moist/pink Neck: Reports: supple Lungs: Reports: Clear to auscultation, Normal respiratory effort Cardiovascular: Reports: Regular Rate, Regular Rhythm Abdomen: Reports: bowel sounds present, soft, no distension. Denies: rigidity, rebound, guarding, tenderness (scant tenderness to palpation.), organomegaly Extremities: Reports: no edema, normal pulses Neurological: Reports: no new focal deficit Psy/Mental Status: Reports: alert, normal affect, normal mood *Q Meaningful Use (DIS) - VTE *Q VTE Criteria *Q: - Stroke *Q Stroke Criteria *Q: - AMI *Q AMI Criteria *Q:
== END 2016-10-13 12:40 | disposition home or self-care (01) | DRG 244 ==
LOC: MW.ED 23:04 → MW.MS 10-12 02:05
PROVIDERS: ADMIT Family Medicine; ATTEND Family Medicine
DX: K57.92 Diverticulitis of intestine, part unspecified, without perforation or abscess without bleeding (principal); E11.9 Type 2 diabetes mellitus without complications; I10 Essential (primary) hypertension; E66.9 Obesity, unspecified; Z68.32 Body mass index [BMI] 32.0-32.9, adult; Z91.041 Radiographic dye allergy status; Z79.82 Long term (current) use of aspirin; Z79.899 Other long term (current) drug therapy
CPT/HCPCS: 36415; 74176; 74176-26; 80048; 80053; 81001; 82962; 85014; 85018; 85025; 96361; 96365; 96375; 99284; 99285-25; C9113; G0480; J0744; J1170; J1815-GY; J2270; J2405; J7040

== ENCOUNTER 2016-11-23 07:20 | Day surgery (SDC) | payer BC ==
[~2016-11-23 07:20] MED LIST: Lactated Ringers 1,000 ML IV SCH; Sodium Chloride 0.9% 10 ML Syringe FLUSH PRN; Sodium Chloride 0.9% 2.5 ML Syringe FLUSH PRN
--- NOTE | 2016-11-23 07:57 | PCM.PREANE ---
Preanesthetic Assessment - Anesthesia/Transfusion/Family Hx Anesthesia History: No Prior Anesthesia Family History of Anesthesia Reaction: No Transfusion History: No Prior Transfusion(s) - Review of Systems General: No Symptoms Pulmonary: No Symptoms Cardiovascular: No Symptoms Gastrointestinal: No symptoms Neurological: No Symptoms Other: Reports: None - Physical Assessment NPO Status Date: 11/22/16 O2 Sat by Pulse Oximetry: 97 Respiratory Rate: 16 Vital Signs: Last Vital Signs Temp 36.2 C 11/23/16 07:26 Pulse 73 11/23/16 07:26 Resp 16 11/23/16 07:26 BP 112/71 11/23/16 07:26 Pulse Ox 97 11/23/16 07:26 Height: 1.68 m Weight: 87.997 kg ASA Class: 2 Mental Status: Alert & Oriented x3 Airway Class: Mallampati = 1 Dentition: Reports: Normal Dentition Lungs: Clear to auscultation, Normal respiratory effort Cardiovascular: Regular Rate, Regular Rhythm - Allergies Allergies/Adverse Reactions: Allergies Allergy/AdvReac Type Severity Reaction Status Date / Time Iodinated Contrast- Oral and Allergy Hives Verified 11/20/16 12:36 IV Dye [Iodinated Contrast Media - Oral and] - Anesthesia Plan Pre-Op Medication Ordered: None - Acknowledgements Anesthesia Type Planned: MAC Pt an Appropriate Candidate for the Planned Anesthesia: No Alternatives and Risks of Anesthesia Discussed w Pt/Guardian: No Pt/Guardian Understands and Agrees with Anesthesia Plan: No PreAnesthesia Questionnaire Other HEENT History: wears glasses Cardiovascular History: Reports: Hypertension Respiratory History: Reports: Sleep Apnea Other Respiratory History: uses CPAP Gastrointestinal History: Reports: Diverticulosis Other Gastrointestinal History: frequent bouts of diverticulitis Genitourinary History: Reports: None Musculoskeletal History: Reports: None Neurological History: Reports: None Psychiatric History: Reports: None Endocrine/Metabolic History: Reports: Diabetes, Type II, Obesity/BMI 30+ Hematologic History: Reports: None Immunologic History: Reports: None Oncologic (Cancer) History: Reports: None Dermatologic History: Reports: None - Infectious Disease History Infectious Disease History: Reports: Chicken Pox - Past Surgical History Head Surgeries/Procedures: Reports: None Respiratory Surgical History: Reports: None GI Surgical History: Reports: None Male Surgical History: Reports: None - SUBSTANCE USE Smoking Status *Q: Current Every Day Smoker Tobacco Use Within Last Twelve Months: Smokeless Tobacco Second Hand Smoke Exposure: No Days Per Week of Alcohol Use: 1 Number of Drinks Per Day: 6 Total Drinks Per Week: 6 Recreational Drug Use History: No - HOME MEDS Home Medications: Home Meds Losartan/Hydrochlorothiazide [Losartan-HCTZ 100-12.5 MG] 1 tab PO DAILY [History] metFORMIN HCl [Metformin HCl] 500 mg PO BID 03/28/14 [History] Canagliflozin [Invokana] 300 mg PO DAILY 04/07/16 [History] Methylcellulose [Fiber] 500 mg PO DAILY 05/23/16 [History] Aspirin [Lite Coat Aspirin] 325 mg PO DAILY #0 10/13/16 [Rx] amLODIPine [Norvasc] 10 mg PO DAILY 11/20/16 [History] - CURRENT (IN HOUSE) MEDS Current Meds: Current Medications Lactated Ringer's (Ringers, Lactated) 1,000 mls @ 125 mls/hr IV ASDIRECTED [facility] Last Admin: 11/23/16 07:36 Dose: 125 mls/hr Sodium Chloride (Saline Flush) 10 ml FLUSH ASDIRECTED PRN PRN Reason: Keep Vein Open Sodium Chloride (Saline Flush) 2.5 ml FLUSH ASDIRECTED PRN PRN Reason: Keep Vein Open
--- NOTE | 2016-11-23 09:36 | PCM.POSTAN ---
POST ANESTHESIA ASSESSMENT - MENTAL STATUS Mental Status: alert, oriented - RESPIRATORY Respiratory Status: respiratory rate WNL, airway patent, O2 saturation stable - CARDIOVASCULAR CV Status: pulse rate WNL, blood pressure stable - GASTROINTESTINAL GI Status: no symptoms - PAIN Pain Score: 0 - POST OP HYDRATION Hydration Status: adequate & stable
--- NOTE | 2016-11-23 09:36 | PCM48HPAN ---
Post Anesthesia Note - EVALUATION WITHIN 48HRS OF ANESTHETIC Vital Signs in Normal Range: Yes Patient Participated in Evaluation: Yes Respiratory Function Stable: Yes Airway Patent: Yes Cardiovascular Function Stable: Yes Hydration Status Stable: Yes Pain Control Satisfactory: Yes Nausea and Vomiting Control Satisfactory: Yes Mental Status Recovered: Yes
[2016-11-23] MEDS ORDERED: Lidocaine 2% 5 ML SDV ONE (10:00)
[2016-11-23] MEDS ORDERED: fentaNYL 100 MCG/2 ML SDV ONE (10:01)
[2016-11-23] MEDS ORDERED: Midazolam 1 MG/ML 2 ML SDV ONE (10:01)
[2016-11-23] MEDS ORDERED: Propofol 200 MG/20 ML SDV ONE (10:01)
--- NOTE | 2016-11-23 10:26 | PCM.OPNOTE ---
- General Post-Op/Procedure Note Date of Surgery/Procedure: 11/23/16 Operative Procedure(s): Diagnostic colonoscopy Findings: Diverticulosis most prominent at the distal descending and proximal sigmoid colon Pre Op Diagnosis: diverticulosis Post-Op Diagnosis: same Anesthesia Technique: MAC Primary Surgeon: Kaylee Keen Condition: Good
[2016-11-23 10:43] VITALS: BP 111/73
--- NOTE | 2016-11-23 11:17 | OR ---
SURGEON: INDU AYERS MD DATE OF PROCEDURE: 11/23/2016 PREOPERATIVE DIAGNOSIS: Diverticulosis. POSTOPERATIVE DIAGNOSIS: Diverticulosis. PROCEDURE PERFORMED: Diagnostic colonoscopy. ANESTHESIA: MAC. INSTRUMENT USED: Olympus colonoscope. EXTENT OF EXAM: To the cecum. PREP: Good. LIMITATIONS: None. INDICATION FOR EXAMINATION: The patient is a 56-year-old male with multiple episodes of diverticulitis. The patient is considering elective sigmoidectomy. It has been several years since his last screening colonoscopy. Given the multiple episodes of diverticulitis, a decision was made to perform a diagnostic colonoscopy prior to performing any surgical procedure. We discussed the procedure and expected perioperative course. We discussed the risks, including bleeding, infection, or damage to surrounding structures. The patient verbalized understanding and wished to proceed. PROCEDURE IN DETAIL: The patient was brought to the endoscopy suite and placed in the left lateral decubitus position. A time-out was completed verifying the patient's name, age, date of , allergies, and procedure to be performed. Monitored anesthesia care was induced and continuous oxygen was provided via nasal cannula throughout the procedure. After adequate sedation was achieved, a digital rectal exam was performed. This examination was within normal limits. A well lubricated colonoscope was then inserted in the rectum and advanced under direct visualization to the level of the cecum. The cecum was identified by both visual and anatomic landmarks. A photograph was taken of the cecal cap. I attempted to retroflex the scope multiple times, but was unable to do so secondary to looping of the scope proximally. The scope was then straightened out and fully withdrawn while examining the color, texture, anatomy, and integrity of the mucosa from the cecum to the anal canal. This was consistent with diverticulosis throughout the colon, however, the majority of the diverticula appeared to be along the distal descending colon and proximal sigmoid colon. This is the same area that the patient has had recurrent episodes of diverticulitis. The scope was then brought into the rectum and retroflexed to allow visualization of the anal canal opening. This appeared normal and a photograph was taken. The scope was then straightened out and removed from the patient. The cecum to anus time was 10 minutes. The patient tolerated the procedure well and was taken to the postoperative care unit in stable condition. ENDOSCOPIC DIAGNOSIS: Diverticulosis. RECOMMENDATIONS: Follow up in clinic in 2 weeks to discuss surgical options. ROCKY ONEIL /[id number]
== END 2016-11-23 11:13 | disposition home or self-care (01) ==
LOC: MW.SDS 07:20
PROVIDERS: ATTEND Surgery
PROC: 0DJD8ZZ Inspection of Lower Intestinal Tract, Via Natural or Artificial Opening Endoscopic (ICD-10-PCS; principal; 2016-11-23)
DX: K57.30 Diverticulosis of large intestine without perforation or abscess without bleeding (principal); G47.30 Sleep apnea, unspecified; E11.9 Type 2 diabetes mellitus without complications; E66.9 Obesity, unspecified; F17.290 Nicotine dependence, other tobacco product, uncomplicated; Z91.048 Other nonmedicinal substance allergy status; Z79.82 Long term (current) use of aspirin; Z79.84 Long term (current) use of oral hypoglycemic drugs; Z79.899 Other long term (current) drug therapy; Z91.041 Radiographic dye allergy status; Z99.89 Dependence on other enabling machines and devices; Z68.31 Body mass index [BMI] 31.0-31.9, adult
CPT/HCPCS: 45378; J2250; J3010; J7120; J2704

== ENCOUNTER 2017-03-12 08:00 | Inpatient (IN) | payer BC ==
[2017-03-13] MEDS ORDERED: Sodium Chloride 0.9% 10 ML Syringe FLUSH PRN (08:04)
[2017-03-13] MEDS ORDERED: Sodium Chloride 0.9% 2.5 ML Syringe FLUSH PRN (08:04)
[2017-03-13] MEDS ORDERED: Meropenem 1 GM in Sodium Chloride 0.9% 100 ML IV ONE (08:04)
[2017-03-13] MEDS ORDERED: Piperacillin/Tazobactam 3.375 GM in Sodium Chloride 0.9% 50 ML IV ONE (08:08)
[2017-03-13] MEDS ORDERED: Lactated Ringers 1,000 ML IV SCH (08:15)
[2017-03-14] MEDS ORDERED: Lidocaine 2% 5 ML SDV ONE (07:27)
[2017-03-14] MEDS ORDERED: Propofol 200 MG/20 ML SDV ONE ×2 (07:27→09:12)
[2017-03-14] MEDS ORDERED: fentaNYL 100 MCG/2 ML SDV ONE (07:27)
[2017-03-14] MEDS ORDERED: Midazolam 1 MG/ML 2 ML SDV ONE (07:27)
[2017-03-14] MEDS ORDERED: Ondansetron 4 MG/2 ML SDV ONE (07:29)
[2017-03-14] MEDS ORDERED: Rocuronium 10 MG/ML 10 ML Syringe ONE (07:29)
[2017-03-14] MEDS ORDERED: Neostigmine Methylsulfate 1 MG/ML 5 ML Syringe ONE (07:29)
[2017-03-14] MEDS ORDERED: ceFAZolin 1 GM Vial ONE (07:33)
[2017-03-14] MEDS ORDERED: Bupivacaine 0.5% 10 ML SDV ONE (07:34)
[2017-03-14] MEDS ORDERED: Bupivacaine 25%/EPINEPHrine/PF 0 ML ONE (07:34)
[2017-03-14] MEDS ORDERED: Bupivacaine 0.5% 30 ML SDV ONE (07:35)
[2017-03-14] MEDS ORDERED: HYDROmorphone 2 MG/ML Syringe ONE ×2 (08:28→11:47)
--- NOTE | 2017-03-14 09:48 | PCM.PREANE ---
Preanesthetic Assessment - Procedure Proposed Procedure: sigmoid resection - Anesthesia/Transfusion/Family Hx Anesthesia History: Prior Anesthesia Without Reaction Family History of Anesthesia Reaction: No Transfusion History: No Prior Transfusion(s) - Review of Systems General: No Symptoms Pulmonary: No Symptoms Cardiovascular: Other (HTN) Gastrointestinal: Abdominal Pain, Other (due to diverticular diseease and obstuction (recurrent)) Neurological: No Symptoms Other: Reports: Diabetes (Type II - usu. 115-180) - Physical Assessment NPO Status Date: 03/12/17 NPO Status Time: 17:00 O2 Sat by Pulse Oximetry: 97 Respiratory Rate: 16 Vital Signs: Last Vital Signs Temp 98.1 F 03/14/17 06:45 Pulse 81 03/14/17 06:45 Resp 16 03/14/17 06:45 BP 115/84 03/14/17 06:45 Pulse Ox 97 03/14/17 06:45 Height: 5 ft 6 in Weight: 196 lb ASA Class: 3 Mental Status: Alert & Oriented x3 Airway Class: Mallampati = 2 Dentition: Reports: Normal Dentition Thyro-Mental Finger Breadths: 3 Mouth Opening Finger Breadths: 3 ROM/Head Extension: Full Lungs: Clear to Auscultation, Normal Respiratory Effort Cardiovascular: Regular Rate, Regular Rhythm - Lab Values: Laboratory Last Values POC Glucose 121 mg/dL (60-110) H 03/14/17 07:15 - Allergies Allergies/Adverse Reactions: Allergies Allergy/AdvReac Type Severity Reaction Status Date / Time Iodinated Contrast- Oral and Allergy Hives Verified 03/09/17 13:54 IV Dye [Iodinated Contrast Media - Oral and] - Blood Blood Available: No Product(s) Available: None - Anesthesia Plan Free Text/Narrative:: present with exam and interview. Consent given to plan by both. Pre-Op Medication Ordered: Other (amlodipine) - Acknowledgements Anesthesia Type Planned: General Anesthesia Pt an Appropriate Candidate for the Planned Anesthesia: Yes Alternatives and Risks of Anesthesia Discussed w Pt/Guardian: Yes Pt/Guardian Understands and Agrees with Anesthesia Plan: Yes PreAnesthesia Questionnaire Other HEENT History: wears glasses Cardiovascular History: Reports: Hypertension Respiratory History: Reports: Sleep Apnea Other Respiratory History: uses CPAP Gastrointestinal History: Reports: Diverticulosis Other Gastrointestinal History: frequent bouts of diverticulitis Genitourinary History: Reports: None Musculoskeletal History: Reports: None Neurological History: Reports: None Psychiatric History: Reports: None Endocrine/Metabolic History: Reports: Diabetes, Type II, Obesity/BMI 30+ Hematologic History: Reports: None Immunologic History: Reports: None Oncologic (Cancer) History: Reports: None Dermatologic History: Reports: None - Infectious Disease History Infectious Disease History: Reports: Chicken Pox - Past Surgical History Head Surgeries/Procedures: Reports: None Respiratory Surgical History: Reports: None GI Surgical History: Reports: Colonoscopy Male Surgical History: Reports: None - SUBSTANCE USE Smoking Status *Q: Current Every Day Smoker Tobacco Use Within Last Twelve Months: Smokeless Tobacco Second Hand Smoke Exposure: No Days Per Week of Alcohol Use: 1 Number of Drinks Per Day: 6 Total Drinks Per Week: 6 Recreational Drug Use History: No - HOME MEDS Home Medications: Home Meds Losartan/Hydrochlorothiazide [Losartan-HCTZ 100-12.5 MG] 1 tab PO DAILY [History] metFORMIN HCl [Metformin HCl] 500 mg PO BID 03/28/14 [History] Canagliflozin [Invokana] 300 mg PO DAILY 04/07/16 [History] Aspirin [Lite Coat Aspirin] 325 mg PO DAILY #0 10/13/16 [Rx] amLODIPine [Norvasc] 10 mg PO DAILY 11/20/16 [History] Multivitamin [Multi-Vitamin Daily] 1 tab PO DAILY 03/09/17 [History] - CURRENT (IN HOUSE) MEDS Current Meds: Current Medications Fentanyl (Sublimaze) 50 mcg IVPUSH Q5M PRN PRN Reason: Pain (severe 7-10) Stop: 03/15/17 08:52 Lactated Ringer's (Ringers, Lactated) 1,000 mls @ 125 mls/hr IV ASDIRECTED ROMEL Last Admin: 03/14/17 07:15 Dose: 125 mls/hr Sodium Chloride (Saline Flush) 10 ml FLUSH ASDIRECTED PRN PRN Reason: Keep Vein Open Sodium Chloride (Saline Flush) 2.5 ml FLUSH ASDIRECTED PRN PRN Reason: Keep Vein Open Discontinued Medications Bupivacaine HCl (Sensorcaine-Mpf 0.5%) Confirm Administered Dose 10 ml .ROUTE .STK-MED ONE Stop: 03/14/17 07:35 Bupivacaine HCl (Marcaine 0.5%) Confirm Administered Dose 120 ml .ROUTE .STK- MED ONE Stop: 03/14/17 07:36 Cefazolin Sodium (Ancef) Confirm Administered Dose 1 gm .ROUTE .STK-MED ONE Stop: 03/14/17 07:34 Fentanyl (Sublimaze) Confirm Administered Dose 400 mcg .ROUTE .STK-MED ONE Stop: 03/14/17 07:28 Glycopyrrolate () Confirm Administered Dose 1 mg .ROUTE .STK-MED ONE Stop: 03/14/17 07:30 Hydromorphone HCl (Dilaudid) Confirm Administered Dose 2 mg .ROUTE .STK-MED ONE Stop: 03/14/17 08:29 Hydromorphone HCl (Dilaudid) 0 mg IVPUSH ONETIME ONE Stop: 03/14/17 08:53 Meropenem 1 gm/ Sodium (Chloride) 100 mls @ 200 mls/hr IV ONETIME ONE Stop: 03/13/17 08:33 Piperacillin Sod/Tazobactam (Sod 3.375 gm/ Sodium Chloride) 50 mls @ 100 mls/ hr IV ONETIME ONE Stop: 03/13/17 08:37 Last Admin: 03/14/17 08:02 Dose: 100 mls/hr Bupivacaine HCl/Epinephrine Bitart (Sensorc Mpf 0.25%-Epi [id number]) Confirm Administered Dose 120 mls @ as directed .ROUTE .STK-MED ONE Stop: 03/14/17 07:35 Lidocaine (Xylocaine-Mpf 2%) Confirm Administered Dose 10 ml .ROUTE .STK-MED ONE Stop: 03/14/17 07:28 Midazolam HCl (Versed 1 Mg/Ml) Confirm Administered Dose 2 mg .ROUTE .STK-MED ONE Stop: 03/14/17 07:28 Neostigmine Methylsulfate (Neostigmine) Confirm Administered Dose 5 mg .ROUTE .STK-MED ONE Stop: 03/14/17 07:30 Ondansetron HCl (Zofran) Confirm Administered Dose 8 mg .ROUTE .STK-MED ONE Stop: 03/14/17 07:30 Propofol (Diprivan 20 Ml) Confirm Administered Dose 400 mg .ROUTE .STK-MED ONE Stop: 03/14/17 07:28 Propofol (Diprivan 20 Ml) Confirm Administered Dose 200 mg .ROUTE .STK-MED ONE Stop: 03/14/17 09:13 Rocuronium [place] (Zemuron) Confirm Administered Dose 100 mg .ROUTE .[facility] Stop: 03/14/17 07:30
[2017-03-14] MEDS ORDERED: Ondansetron 4 MG/2 ML SDV IVPUSH PRN (11:23)
[2017-03-14] MEDS ORDERED: diphenhydrAMINE 50 MG/ML SDV IVPUSH PRN (11:23)
[2017-03-14] MEDS ORDERED: Metoprolol Tartrate 5 MG/5 ML SDV IVPUSH PRN (11:32)
--- NOTE | 2017-03-14 11:38 | PCM.OPNOTE ---
- General Post-Op/Procedure Note Date of Surgery/Procedure: 03/14/17 Operative Procedure(s): Open distal descending colon and proximal sigmoid colectomy with mobilization of the splenic flexure. Findings: Large diverticuli at the junction of the distal descending and proximal sigmoid colon. The omentum was adhered around this area suggesting prior inflammation. Pre Op Diagnosis: Diverticulosis with recurrent episodes of diverticulitis Post-Op Diagnosis: same Anesthesia Technique: General ET Tube Primary Surgeon: Kaylee Keen Fluid Replacement, Intraop: 3,700 Output, Urine Amount: 70 EBL in mLs: 200 Condition: Good
[2017-03-14] MEDS ORDERED: Lactated Ringers 1,000 ML IV ONE (11:39)
[2017-03-14] MEDS: fentaNYL 100 MCG/2 ML SDV IVPUSH PRN ×4 (11:48→12:59)
[2017-03-14] MEDS: HYDROmorphone 2 MG/ML Syringe IVPUSH ONE ×2 (11:50→12:12)
[2017-03-14] MEDS: HYDROmorphone/Normal Saline 6 MG/30 ML PCA Vial IV PRN (12:37)
[2017-03-14] MEDS ORDERED: Sodium Chloride 0.9% 1,000 ML IV ONE (13:08)
--- NOTE | 2017-03-14 13:08 | PCM.POSTAN ---
POST ANESTHESIA ASSESSMENT - MENTAL STATUS Mental Status: Oriented Free Text/Narrative:: pain treatments leave him nauseated, confused and has narrow window of relief or extreme obtundation. UO per surgeon assessment is low. Will send to ICU per surgeon assessment. - VITAL SIGNS Pulse Rate: 100 SaO2: 93 Resp Rate: 10 Blood Pressure: 113/67 - RESPIRATORY Respiratory Status: Respiratory Rate WNL, Airway Patent, O2 Saturation Stable, Supplemental Oxygen - CARDIOVASCULAR CV Status: Pulse Rate WNL, Blood Pressure Stable - GASTROINTESTINAL Free Text/Narrative:: Pain due to midline incision - PAIN Pain Score: 8 (difficult to assess) - OBSERVATIONS Free Text/Narrative:: will require close observation/care overnite.
--- NOTE | 2017-03-14 13:25 | PCM.SN ---
- Free Text/Narrative Note: Patient has had 40 ml of UOP in 2 hour. It appears clear yellow. His BMP showed his Cr is elevated to 1.3 (from 0.8 on previous admissions). His BUN is 20. His Hct is concentrated at 15.7. In PACU he recieved 1L of LR. I have ordered all his fluids to be switched to NS. He will be given another 1L of normal saline. He is awake and complains of abdominal pain. His abdomen is soft, non-distended and mildly tender with palpation. His breath sounds are clear and he is slightly tachy. His overton is patent and as I said his urine is clear yellow. I feel his decreased UOP is due to third spacing and a long open abdomen time. I will continue his NS MIVF @ 125ml/hr. I will give him another one liter of NS. I am sending his urine for sodium and creatinine to determine his FeNa. I feel this is pre-renal. I will transfer him to the ICU for closer monitoring.
[2017-03-14] MEDS: Sodium Chloride 0.9% 1,000 ML IV SCH ×2 (15:01→23:29)
[2017-03-14] MEDS ORDERED: Sodium Chloride 0.9% 500 ML IV SCH (15:45)
[2017-03-14 16:38] LABS: CHLORIDE,CL 110 mmol/L (98-110); SODIUM,NA 140 mmol/L (136-146)
--- NOTE | 2017-03-14 19:15 | OR ---
SURGEON: INDU AYERS MD DATE OF PROCEDURE: 03/14/2017 PREOPERATIVE DIAGNOSIS: Recurrent diverticulosis. POSTOPERATIVE DIAGNOSIS: Recurrent diverticulosis. PROCEDURE PERFORMED: Open resection of the distal descending colon and proximal sigmoid colon with takedown of the splenic flexure. SECOND SURGEON: Dr. Renan Baum. ANESTHESIA: General endotracheal anesthesia. FLUIDS: 3700 mL crystalloid. ESTIMATED BLOOD LOSS: 200 mL. URINE OUTPUT: 70 mL. FINDINGS: Large fecally impacted diverticula at the juncture of the sigmoid and descending colon. Omentum was adhered to this area indicating previous inflammatory process. COMPLICATIONS: None. INDICATIONS FOR OPERATION: The patient is a 56-year-old male, who has a past medical history significant for diverticulitis. He has had multiple episodes of diverticulitis in at least 3 CT documented episodes. On the CT imaging he has large diverticula at the junction of the descending colon and sigmoid colon with associated inflammation. The patient has had 2 episodes alone just this year. The patient desires to have surgical excision to prevent further episodes of diverticulitis at this area. He underwent a diagnostic colonoscopy that showed a large broad-based diverticula in that area in order and scattered small diverticula elsewhere. I explained the open and laparoscopic resection of this segment of the colon to the patient. Due to the limitations at this facility I am unable to perform laparoscopically and offered to have him go to a larger facility where this may be an option. He would like to stay close to home and is willing to undergo an open resection of the distal descending colon and proximal sigmoid colon. I explained the procedure, including expected perioperative course. We discussed the risks, including bleeding, infection, or damage to surrounding structures, including the spleen, pancreas, and ureter. The patient verbalized understanding and wished to proceed. DESCRIPTION OF OPERATION: The patient was brought to the OR and placed on the operating table in supine position. A time-out was completed verifying the patient's name, age, date of , allergies, and procedure to be performed. The general endotracheal anesthesia was induced. A Ordonez catheter was placed and the abdomen was prepped and draped in the usual standard fashion. A generous midline incision was made using a #10 blade. Cautery was used to dissect down to the level of fascia. The fascia was incised and I entered the peritoneum sharply using a Murphy scissors. Upon entering the abdomen, the omentum and small bowel was swept medially. The descending and sigmoid colon was identified. A Bookwalter retractor was brought in to provide adequate exposure of the descending and sigmoid colon. The sigmoid colon was rotated medially and I incised the retroperitoneal attachments along the white line of Toldt using Murphy scissors. This was carried up proximally to the splenic flexure. Using blunt dissection, I was able to mobilize the sigmoid colon off the retroperitoneal attachments. The left ureter was identified and protected. Using sharp dissection with the Murphy scissors, Bovie cautery, and harmonic device, I took down the lateral attachments of the splenic flexure thereby mobilizing this area of the colon. I palpated along the descending colon and found an area of large diverticula at the descending colon/sigmoid colon junction. The left lateral omentum was adhered to this area suggesting that this had previously been inflamed. The omentum was dissected off the colon using a Harmonic Scalpel. This was then tucked up with the rest of the omentum in the upper part of the abdomen. Once I had mobilized my colon enough laterally and along with the splenic flexure, I assessed my area of resection. This was approximately 10 cm of colon encompassing these wide based diverticula. My ends came together nicely without tension. I created defect through the omentum at my resection margins. Right-angle clamps were placed on the bowel. Shalini's were placed on the resection specimen to minimize spillage. I covered by wound with wet laps and used a #10 blade scalpel to transect the proximal and distal edges of my colon. Then, using cautery and the Harmonic Scalpel, I resected the mesenteric attachment of my resection specimen. A small area of bleeding was encountered. This was clamped and doubly ligated with 0 silk sutures. The resection specimen was sent to pathology, labeled as distal descending colon/proximal sigmoid colon. Hemostasis along my mesentery was confirmed and I began to anastomose my the cut ends of the colon. Non- penetrating towel clamps were placed more proximal and distal and the right angle clamps were removed. The back wall of the colon was secured with interrupted 3-0 silk sutures. A 3-0 Vicryl was used to bring my mucosa together and was run along the posterior wall in a locking fashion. I closed my anterior wall with a canal stitch. The anterior wall was then oversewn with 2-0 silk to imbricate over my suture line. I palpated my enterotomy and it appeared to have good patency. Dr. Baum and I changed gloves and inspected the area for hemostasis. Good hemostasis was achieved. My mesenteric defect was closed using interrupted silk sutures. The abdomen was irrigated with warm saline. All laps were counted and removed from inside the abdomen. The Bookwalter was removed from the field. The omentum was then placed around my anastomosis. The fascia was closed with running looped 1 PDS. An ON-Q pump was placed in the subcutaneous tissues. The skin was closed with aly. Sterile dressings were applied. The patient tolerated the procedure well and was taken to the PACU in stable condition. Please send a copy of this dictation to Dr. Renan HIDALGO / CLARICE /[id number] MTDD
--- NOTE | 2017-03-14 19:29 | PCM.SN ---
- Free Text/Narrative Note: I checked on the patient this evening. His pain is better controlled on FIG CAPRIFIER. He still having muscle spasms along his incision. When he is resting his HR is 107. With spasms it increased to 120s. His UOP has improved significantly. He has had ~ 700ml out since arriving in the ICU. His IVF were turned down to 125ml /hr. [id number] of his hgb was 14.9. His Cr is 1.2. Will continue to monitor overnight.
[2017-03-14] MEDS ORDERED: Insulin Aspart 100 Units/ML 3 ML Pen SUBCUT SCH (21:00)
--- NOTE | 2017-03-14 21:32 | PCM48HPAN ---
Post Anesthesia Note - EVALUATION WITHIN 48HRS OF ANESTHETIC Vital Signs in Normal Range: Yes Patient Participated in Evaluation: Yes Respiratory Function Stable: Yes Airway Patent: Yes Cardiovascular Function Stable: Yes Hydration Status Stable: Yes Pain Control Satisfactory: Yes (but not happy with his devulcanizer head of the incisional pain...meds needed.) Nausea and Vomiting Control Satisfactory: Yes Mental Status Recovered: Yes
[2017-03-15] MEDS: HYDROmorphone/Normal Saline 6 MG/30 ML PCA Vial IV PRN (04:22)
[2017-03-15 06:07] LABS: CHLORIDE,CL 112 mmol/L (98-110); SODIUM,NA 142 mmol/L (136-146)
[2017-03-15] MEDS: Insulin Aspart 100 Units/ML 3 ML Pen SUBCUT SCH ×2 (06:39→18:18)
[2017-03-15] MEDS ORDERED: Magnesium Sulfate/Water 4 GM in Premix Bag 1 BAG IV ONE (07:00)
[2017-03-15] MEDS ORDERED: Phenol 1.4% Oral Spray 177 ML Bottle MUCMEM PRN (07:12)
[2017-03-15] MEDS: Sodium Chloride 0.9% 1,000 ML IV SCH (07:31)
[2017-03-15] MEDS: Ketorolac 15 MG/ML SDV IVPUSH SCH ×3 (07:42→18:48)
[2017-03-15] MEDS: Cyclobenzaprine 10 MG Tab PO SCH ×3 (07:43→21:14)
--- NOTE | 2017-03-15 07:45 | PCM.SURGPN ---
- General Info Date of Service: 03/15/17 Date of Surgery/Procedure: 03/14/17 POD#: 1 Post-Op Diagnosis: diverticulosis Functional Status: Reports: Other (UOP improved overnight. Muscle spasms still causing most of his pain. He denies nausea, vomiting, SOB, chest pain. No fevers or chills. ) - Review of Systems General: Reports: No Symptoms Pulmonary: Reports: No Symptoms Cardiovascular: Reports: No Symptoms Gastrointestinal: Reports: No Symptoms - Patient Data Vitals - Most Recent: Last Vital Signs Temp 37.0 C 03/15/17 04:00 Pulse 118 H 03/14/17 14:08 Resp 26 H 03/15/17 07:00 BP 141/99 H 03/15/17 07:00 Pulse Ox 93 L 03/15/17 07:00 Weight - Most Recent: 93.9 kg I&O - Last 24 Hours: Intake & Output 03/14/17 03/15/17 03/15/17 22:59 06:59 14:59 Intake Total 3050 60 Output Total 800 1500 Balance 2250 -1440 Lab Results Last 24 Hrs: Laboratory Results - last 24 hr 03/14/17 03/14/17 03/14/17 Range/Units 12:01 12:01 13:52 WBC (4.0-11.0) K/uL RBC (4.50-5.90) M/uL Hgb 15.7 (13.0-17.0) g/dL Hct 47.0 (38.0-50.0) % MCV (80.0-98.0) fL MCH (27.0-32.0) pg MCHC (31.0-37.0) g/dL RDW Std Deviation (28.0-62.0) fl RDW Coeff of Rajendra (11.0-15.0) % Plt Count (150-400) K/uL MPV (7.40-12.00) fL Neut % (Auto) (48.0-80.0) % Lymph % (Auto) (16.0-40.0) % Jack % (Auto) (0.0-15.0) % Eos % (Auto) (0.0-7.0) % Baso % (Auto) (0.0-1.5) % Neut # (Auto) (1.4-5.7) K/uL Lymph # (Auto) (0.6-2.4) K/uL Jack # (Auto) (0.0-0.8) K/uL Eos # (Auto) (0.0-0.7) K/uL Baso # (Auto) (0.0-0.1) K/uL Nucleated RBC % /100WBC Nucleated RBCs # K/uL Sodium 139 (136-146) mmol/L Potassium 4.0 (3.5-5.1) mmol/L Chloride 110 (98-110) mmol/L Carbon Dioxide 20 L (21-31) mmol/L BUN 20 (6.0-23.0) mg/dL Creatinine 1.3 (0.6-1.5) mg/dL Est Cr Clr Drug Dosing 57.94 mL/min Estimated GFR (MDRD) 57.3 ml/min Glucose 151 H (60-110) mg/dL POC Glucose (60-110) mg/dL Calcium 8.5 L (8.8-10.8) mg/dL Phosphorus (2.4-4.7) mg/dL Magnesium (1.5-2.3) mEq/L Ur Random Creatinine 113.6 mg/dL Ur Random Sodium 22.0 mmol/L 03/14/17 03/14/17 03/14/17 Range/Units 16:06 16:06 17:18 WBC (4.0-11.0) K/uL RBC (4.50-5.90) M/uL Hgb 14.9 (13.0-17.0) g/dL Hct 45.2 (38.0-50.0) % MCV (80.0-98.0) fL MCH (27.0-32.0) pg MCHC (31.0-37.0) g/dL RDW Std Deviation (28.0-62.0) fl RDW Coeff of Rajendra (11.0-15.0) % Plt Count (150-400) K/uL MPV (7.40-12.00) fL Neut % (Auto) (48.0-80.0) % Lymph % (Auto) (16.0-40.0) % Jack % (Auto) (0.0-15.0) % Eos % (Auto) (0.0-7.0) % Baso % (Auto) (0.0-1.5) % Neut # (Auto) (1.4-5.7) K/uL Lymph # (Auto) (0.6-2.4) K/uL Jack # (Auto) (0.0-0.8) K/uL Eos # (Auto) (0.0-0.7) K/uL Baso # (Auto) (0.0-0.1) K/uL Nucleated RBC % /100WBC Nucleated RBCs # K/uL Sodium 140 (136-146) mmol/L Potassium 4.1 (3.5-5.1) mmol/L Chloride 110 (98-110) mmol/L Carbon Dioxide 20 L (21-31) mmol/L BUN 19 (6.0-23.0) mg/dL Creatinine 1.2 (0.6-1.5) mg/dL Est Cr Clr Drug Dosing 63.09 mL/min Estimated GFR (MDRD) > 60.0 ml/min Glucose 141 H (60-110) mg/dL POC Glucose 120 H (60-110) mg/dL Calcium 8.4 L (8.8-10.8) mg/dL Phosphorus (2.4-4.7) mg/dL Magnesium (1.5-2.3) mEq/L Ur Random Creatinine mg/dL Ur Random Sodium mmol/L 03/15/17 03/15/17 03/15/17 Range/Units 00:22 05:05 05:05 WBC 13.71 H (4.0-11.0) K/uL RBC 4.58 (4.50-5.90) M/uL Hgb 14.8 (13.0-17.0) g/dL Hct 44.7 (38.0-50.0) % MCV 97.6 (80.0-98.0) fL MCH 32.3 H (27.0-32.0) pg MCHC 33.1 (31.0-37.0) g/dL RDW Std Deviation 48.1 (28.0-62.0) fl RDW Coeff of Rajendra 14 (11.0-15.0) % Plt Count 224 (150-400) K/uL MPV 10.80 (7.40-12.00) fL Neut % (Auto) 80.6 H (48.0-80.0) % Lymph % (Auto) 7.8 L (16.0-40.0) % Jack % (Auto) 11.5 (0.0-15.0) % Eos % (Auto) 0.0 (0.0-7.0) % Baso % (Auto) 0.1 (0.0-1.5) % Neut # (Auto) 11.1 H (1.4-5.7) K/uL Lymph # (Auto) 1.1 (0.6-2.4) K/uL Jack # (Auto) 1.6 H (0.0-0.8) K/uL Eos # (Auto) 0.0 (0.0-0.7) K/uL Baso # (Auto) 0.0 (0.0-0.1) K/uL Nucleated RBC % 0.0 /100WBC Nucleated RBCs # 0 K/uL Sodium 142 (136-146) mmol/L Potassium 4.1 (3.5-5.1) mmol/L Chloride 112 H (98-110) mmol/L Carbon Dioxide 20 L (21-31) mmol/L BUN 14 (6.0-23.0) mg/dL Creatinine 1.0 (0.6-1.5) mg/dL Est Cr Clr Drug Dosing 75.70 mL/min Estimated GFR (MDRD) > 60.0 ml/min Glucose 106 (60-110) mg/dL POC Glucose 108 (60-110) mg/dL Calcium 8.6 L (8.8-10.8) mg/dL Phosphorus 3.4 (2.4-4.7) mg/dL Magnesium 1.3 L (1.5-2.3) mEq/L Ur Random Creatinine mg/dL Ur Random Sodium mmol/L 03/15/17 Range/Units 06:29 WBC (4.0-11.0) K/uL RBC (4.50-5.90) M/uL Hgb (13.0-17.0) g/dL Hct (38.0-50.0) % MCV (80.0-98.0) fL MCH (27.0-32.0) pg MCHC (31.0-37.0) g/dL RDW Std Deviation (28.0-62.0) fl RDW Coeff of Rajendra (11.0-15.0) % Plt Count (150-400) K/uL MPV (7.40-12.00) fL Neut % (Auto) (48.0-80.0) % Lymph % (Auto) (16.0-40.0) % Jack % (Auto) (0.0-15.0) % Eos % (Auto) (0.0-7.0) % Baso % (Auto) (0.0-1.5) % Neut # (Auto) (1.4-5.7) K/uL Lymph # (Auto) (0.6-2.4) K/uL Jack # (Auto) (0.0-0.8) K/uL Eos # (Auto) (0.0-0.7) K/uL Baso # (Auto) (0.0-0.1) K/uL Nucleated RBC % /100WBC Nucleated RBCs # K/uL Sodium (136-146) mmol/L Potassium (3.5-5.1) mmol/L Chloride (98-110) mmol/L Carbon Dioxide (21-31) mmol/L BUN (6.0-23.0) mg/dL Creatinine (0.6-1.5) mg/dL Est Cr Clr Drug Dosing mL/min Estimated GFR (MDRD) ml/min Glucose (60-110) mg/dL POC Glucose 108 (60-110) mg/dL Calcium (8.8-10.8) mg/dL Phosphorus (2.4-4.7) mg/dL Magnesium (1.5-2.3) mEq/L Ur Random Creatinine mg/dL Ur Random Sodium mmol/L Med Orders - Current: Current Medications Cyclobenzaprine HCl (Flexeril) 10 mg PO TID ROMEL Diazepam (Valium) 2.5 mg IVPUSH Q2H PRN PRN Reason: Spasms Last Admin: 03/15/17 06:51 Dose: 2.5 mg Diphenhydramine HCl (Benadryl) 25 mg IVPUSH Q4H PRN PRN Reason: Itching Enoxaparin Sodium (Lovenox) 40 mg SUBCUT DAILY ROMEL Hydromorphone HCl (Dilaudid Pillow Filler 6 Mg In Ns 30 Ml) 6 mg IV ASDIRECTED PRN; Protocol PRN Reason: Pain Last Admin: 03/15/17 04:22 Dose: 6 mg Sodium Chloride (Normal Saline) 1,000 mls @ 125 mls/hr IV ASDIRECTED ROMEL Last Admin: 03/15/17 07:31 Dose: 125 mls/hr Magnesium Sulfate 4 gm/ Premix 100 mls @ 50 mls/hr IV ONETIME ONE Stop: 03/15/17 08:59 Insulin Aspart (Novolog) 0 unit SUBCUT Q12H ROMEL PRN Reason: Protocol Last Admin: 03/15/17 06:39 Dose: Not Given Ketorolac Tromethamine (Toradol) 15 mg IVPUSH Q6H ROMEL Stop: 03/20/17 07:04 Metoprolol Tartrate (Lopressor) 5 mg IVPUSH Q4H PRN PRN Reason: Other Ondansetron HCl (Zofran) 4 mg IVPUSH Q6H PRN PRN Reason: Nausea/Vomiting Phenol/Menthol (Chloraseptic Throat Benton) 1 ml MUCMEM Q2H PRN PRN Reason: Pain Sodium Chloride (Saline Flush) 10 ml FLUSH ASDIRECTED PRN PRN Reason: Keep Vein Open Sodium Chloride (Saline Flush) 2.5 ml FLUSH ASDIRECTED PRN PRN Reason: Keep Vein Open Discontinued Medications Bupivacaine HCl (Sensorcaine-Mpf 0.5%) Confirm Administered Dose 10 ml .ROUTE .STK-MED ONE Stop: 03/14/17 07:35 Bupivacaine HCl (Marcaine 0.5%) Confirm Administered Dose 120 ml .ROUTE .STK- MED ONE Stop: 03/14/17 07:36 Cefazolin Sodium (Ancef) Confirm Administered Dose 1 gm .ROUTE .STK-MED ONE Stop: 03/14/17 07:34 Fentanyl (Sublimaze) Confirm Administered Dose 400 mcg .ROUTE .STK-MED ONE Stop: 03/14/17 07:28 Fentanyl (Sublimaze) 50 mcg IVPUSH Q5M PRN PRN Reason: Pain (severe 7-10) Stop: 03/15/17 08:52 Last Admin: 03/14/17 12:59 Dose: 50 mcg Glycopyrrolate () Confirm Administered Dose 1 mg .ROUTE .STK-MED ONE Stop: 03/14/17 07:30 Hydromorphone HCl (Dilaudid) Confirm Administered Dose 2 mg .ROUTE .STK-MED ONE Stop: 03/14/17 08:29 Hydromorphone HCl (Dilaudid) 0 mg IVPUSH ONETIME ONE Stop: 03/14/17 08:53 Last Admin: 03/14/17 12:12 Dose: 1 mg Hydromorphone HCl (Dilaudid) Confirm Administered Dose 2 mg .ROUTE .STK-MED ONE Stop: 03/14/17 11:48 Last Admin: 03/14/17 15:00 Dose: Not Given Lactated Ringer's (Ringers, Lactated) 1,000 mls @ 125 mls/hr IV ASDIRECTED ROMEL Last Admin: 03/14/17 07:15 Dose: 125 mls/hr Meropenem 1 gm/ Sodium (Chloride) 100 mls @ 200 mls/hr IV ONETIME ONE Stop: 03/13/17 08:33 Last Admin: 03/14/17 15:38 Dose: Not Given Piperacillin Sod/Tazobactam (Sod 3.375 gm/ Sodium Chloride) 50 mls @ 100 mls/ hr IV ONETIME ONE Stop: 03/13/17 08:37 Last Admin: 03/14/17 08:02 Dose: 100 mls/hr Bupivacaine HCl/Epinephrine Bitart (Sensorc Mpf 0.25%-Epi 1:[id number]) Confirm Administered Dose 120 mls @ as directed .ROUTE .STK-MED ONE Stop: 03/14/17 07:35 Lactated Ringer's (Ringers, Lactated) 1,000 mls @ 1,000 mls/hr IV .BOLUS ONE Stop: 03/14/17 12:38 Last Admin: 03/14/17 15:00 Dose: Not Given Sodium Chloride (Normal Saline) 1,000 mls @ 1,000 mls/hr IV .Bolus ONE Stop: 03/14/17 14:07 Last Admin: 03/14/17 15:03 Dose: Not Given Sodium Chloride (Normal Saline) 500 mls @ 500 mls/hr IV .BOLUS ROMEL Last Admin: 03/14/17 15:47 Dose: 500 mls/hr Insulin Aspart (Novolog) 0 unit SUBCUT ACBREAKFASTANDBED ROMEL PRN Reason: Protocol Lidocaine (Xylocaine-Mpf 2%) Confirm Administered Dose 10 ml .ROUTE .STK-MED ONE Stop: 03/14/17 07:28 Midazolam HCl (Versed 1 Mg/Ml) Confirm Administered Dose 2 mg .ROUTE .STK-MED ONE Stop: 03/14/17 07:28 Neostigmine Methylsulfate (Neostigmine) Confirm Administered Dose 5 mg .ROUTE .STK-MED ONE Stop: 03/14/17 07:30 Ondansetron HCl (Zofran) Confirm Administered Dose 8 mg .ROUTE .STK-MED ONE Stop: 03/14/17 07:30 Propofol (Diprivan 20 Ml) Confirm Administered Dose 400 mg .ROUTE .STK-MED ONE Stop: 03/14/17 07:28 Propofol (Diprivan 20 Ml) Confirm Administered Dose 200 mg .ROUTE .STK-MED ONE Stop: 03/14/17 09:13 Rocuronium [place] (Zemuron) Confirm Administered Dose 100 mg .ROUTE .STK-MED ONE Stop: 03/14/17 07:30 - Exam Wound/Incisions: Drainage (on lower half of dressings. Appears serosanguinous ) Quality Assessment: Supplemental Oxygen General: Alert, Oriented Lungs: Clear to Auscultation, Normal Respiratory Effort Cardiovascular: Regular Rhythm, Tachycardia GI/Abdominal Exam: Soft, Distended, Tender (over left lower quadrant ). No: Guarding, Rigid, Rebound Extremities: Normal Inspection Skin: Warm, Dry, Intact Neurological: No New Focal Deficit Psy/Mental Status: Alert, Normal Affect, Normal Mood - Problem List & Annotations (1) Diverticulitis SNOMED Code(s): 831033156 Code(s): K57.92 - DVTRCLI OF INTEST, PART UNSP, W/O PERF OR ABSCESS W/O BLEED Status: Acute Current Visit: No Qualifiers: - Problem List Review Problem List Initiated/Reviewed/Updated: Yes - My Orders Last 24 Hours: Active Orders 24 hr Category Date Time Status Patient Status [ADT] Routine ADT 03/14/17 19:17 Active Antiembolic Devices [RC] .Routine Care 03/14/17 11:26 Active Blood Glucose Check, Bedside [RC] Q6H Care 03/14/17 18:00 Active Cardiac Monitoring [RC] Q8H Care 03/14/17 13:26 Active Gastrointestinal Tube Mgmt [RC] Q4H Care 03/14/17 11:24 Active Intake and Output [RC] Q4H Care 03/14/17 07:30 Active Notify Provider Vital Signs [RC] PRN Care 03/14/17 11:24 Active Oxygen Therapy [RC] PRN Care 03/14/17 11:23 Active Pulse Oximetry [RC] ASDIRECTED Care 03/14/17 13:28 Active RT Incentive Spirometry [RC] ASDIRECTED Care 03/14/17 11:23 Active Up ad Tasneem [RC] ASDIRECTED Care 03/14/17 11:23 Active Urinary Catheter Assessment [RC] Q4H Care 03/14/17 11:23 Active Vital Signs [RC] Q1H Care 03/14/17 11:23 Active Advance Diet Instructions [DIET] Diet 03/15/17 Breakfast Active BASIC METABOLIC PANEL,BMP [CHEM] AM Lab 03/16/17 05:11 Ordered BASIC METABOLIC PANEL,BMP [CHEM] AM Lab 03/17/17 05:11 Ordered BASIC METABOLIC PANEL,BMP [CHEM] AM Lab 03/18/17 05:11 Ordered BASIC METABOLIC PANEL,BMP [CHEM] AM Lab 03/19/17 05:11 Ordered CBC WITH AUTO DIFF [HEME] AM Lab 03/16/17 05:11 Ordered CBC WITH AUTO DIFF [HEME] AM Lab 03/17/17 05:11 Ordered CBC WITH AUTO DIFF [HEME] AM Lab 03/18/17 05:11 Ordered CBC WITH AUTO DIFF [HEME] AM Lab 03/19/17 05:11 Ordered MAGNESIUM [CHEM] AM Lab 03/16/17 05:11 Ordered MAGNESIUM [CHEM] AM Lab 03/17/17 05:11 Ordered MAGNESIUM [CHEM] AM Lab 03/18/17 05:11 Ordered MAGNESIUM [CHEM] AM Lab 03/19/17 05:11 Ordered PHOSPHORUS [CHEM] AM Lab 03/16/17 05:11 Ordered PHOSPHORUS [CHEM] AM Lab 03/17/17 05:11 Ordered PHOSPHORUS [CHEM] AM Lab 03/18/17 05:11 Ordered PHOSPHORUS [CHEM] AM Lab 03/19/17 05:11 Ordered Cyclobenzaprine [Flexeril] Med 03/15/17 07:30 Active 10 mg PO TID Diazepam [Valium] Med 03/14/17 12:13 Active 2.5 mg IVPUSH Q2H PRN Enoxaparin [Lovenox] Med 03/15/17 09:00 Active 40 mg SUBCUT DAILY HYDROmorphone/Normal Saline [Dilaudid RECORDS ADMINISTRATOR 6 MG in NS 30 Med 03/14/17 11:34 Active ML] 6 mg IV ASDIRECTED PRN Insulin Aspart [NovoLOG] Med 03/15/17 06:00 Active See Protocol SUBCUT Q12H Ketorolac [Toradol] Med 03/15/17 07:15 Active 15 mg IVPUSH Q6H Magnesium Sulfate/Water [Magnesium Sulfate 4 GM in Med 03/15/17 07:00 Active Water 100 ML] 4 gm Premix Bag 1 bag IV ONETIME Metoprolol Tartrate [Lopressor] Med 03/14/17 11:32 Active 5 mg IVPUSH Q4H PRN Ondansetron [Zofran] Med 03/14/17 11:23 Active 4 mg IVPUSH Q6H PRN Phenol [Chloraseptic Throat Benton] Med 03/15/17 07:12 Active 1 ml MUCMEM Q2H PRN Sodium Chloride 0.9% [Normal Saline] 1,000 ml Med 03/14/17 13:15 Active IV ASDIRECTED diphenhydrAMINE [Benadryl] Med 03/14/17 11:23 Active 25 mg IVPUSH Q4H PRN DVT/VTE Prophylaxis Reflex [OM.PC] Routine Oth 03/14/17 11:23 Ordered Glucose Management Sub Q Reflex [OM.PC] Routine Oth 03/14/17 11:25 Ordered Sequential Compression Device [OM.PC] Per Unit Routine Oth 03/14/17 11:29 Ordered Medication Orders Cyclobenzaprine HCl (Flexeril) 10 mg PO TID ROMEL Diazepam (Valium) 2.5 mg IVPUSH Q2H PRN PRN Reason: Spasms Last Admin: 03/15/17 06:51 Dose: 2.5 mg Admin: 03/15/17 04:06 Dose: 2.5 mg Admin: 03/14/17 21:51 Dose: 2.5 mg Admin: 03/14/17 19:38 Dose: 2.5 mg Admin: 03/14/17 13:34 Dose: 2.5 mg Diphenhydramine HCl (Benadryl) 25 mg IVPUSH Q4H PRN PRN Reason: Itching Enoxaparin Sodium (Lovenox) 40 mg SUBCUT DAILY [facility] Hydromorphone HCl (Dilaudid Pillow Filler 6 Mg In Ns 30 Ml) 6 mg IV ASDIRECTED PRN; Protocol PRN Reason: Pain Last Admin: 03/15/17 04:22 Dose: 6 mg Admin: 03/14/17 12:37 Dose: 6 mg Sodium Chloride (Normal Saline) 1,000 mls @ 125 mls/hr IV ASDIRECTED [facility] Last Admin: 03/15/17 07:31 Dose: 125 mls/hr Infusion: 03/15/17 07:29 Dose: 125 mls/hr Admin: 03/14/17 23:29 Dose: 125 mls/hr Infusion: 03/14/17 22:35 Dose: 125 mls/hr Infusion: 03/14/17 17:13 Dose: 125 mls/hr Admin: 03/14/17 15:01 Dose: 150 mls/hr Magnesium Sulfate 4 gm/ Premix 100 mls @ 50 mls/hr IV ONETIME ONE Stop: 03/15/17 08:59 Insulin Aspart (Novolog) 0 unit SUBCUT Q12H [facility] PRN Reason: Protocol Last Admin: 03/15/17 06:39 Dose: Not Given Ketorolac Tromethamine (Toradol) 15 mg IVPUSH Q6H [facility] Stop: 03/20/17 07:04 Metoprolol Tartrate (Lopressor) 5 mg IVPUSH Q4H PRN PRN Reason: Other Ondansetron HCl (Zofran) 4 mg IVPUSH Q6H PRN PRN Reason: Nausea/Vomiting Phenol/Menthol (Chloraseptic Throat Benton) 1 ml MUCMEM Q2H PRN PRN Reason: Pain Sodium Chloride (Saline Flush) 10 ml FLUSH ASDIRECTED PRN PRN Reason: Keep Vein Open Sodium Chloride (Saline Flush) 2.5 ml FLUSH ASDIRECTED PRN PRN Reason: Keep Vein Open - Plan Plan (Free Text/Narrative):: -Pain: Will stop valium and give scheduled flexeril. Scheduled IV toradol 15mg q 6 hr for pain. Continue IV dilaudid for now. -Heart: Tachycardic. This could be due to pain. Will restart home meds as soon as patient able to tolerate po. -Pulmonary: Lung sounds clear. Out of bed today with lots of IS use. -GI: Clamp NG this am and attempt clears. If tolerating clears, can remove NG. -Renal: UOP improved and Cr down to 1.0. Mag needs to be replaced. Phos ok. -ID: WBC slightly elevated. Most likely due to stress leukocytosis. No fevers. -Heme: H/H stable. -Px: Heparin for DVT px. -If stable this afternoon will transfer to floor.
[2017-03-15] MEDS ORDERED: Enoxaparin 40 MG/0.4 ML Syringe SUBCUT SCH (09:00)
[2017-03-15] MEDS: amLODIPine 5 MG Tab PO SCH (15:30)
[2017-03-15] MEDS: Hydrochlorothiazide/Losartan 12.5-50 mg Tab PO SCH (15:30)
[2017-03-15] MEDS: metFORMIN 500 MG Tab.ER PO SCH ×2 (15:30→18:17)
[2017-03-15] MEDS: INVOKANA 300 MG PO SCH (16:54)
[2017-03-16] MEDS: Ketorolac 15 MG/ML SDV IVPUSH SCH ×2 (00:19→06:34)
[2017-03-16 05:38] LABS: CHLORIDE,CL 108 mmol/L (98-110); SODIUM,NA 141 mmol/L (136-146)
[2017-03-16] MEDS: Cyclobenzaprine 10 MG Tab PO SCH ×3 (05:49→22:09)
[2017-03-16] MEDS: Insulin Aspart 100 Units/ML 3 ML Pen SUBCUT SCH ×2 (07:00→18:21)
[2017-03-16] MEDS ORDERED: Magnesium Sulfate/Water 4 GM in Premix Bag 1 BAG IV ONE (08:00)
[2017-03-16] MEDS ORDERED: Sodium Chloride 0.9% 500 ML IV SCH (08:00)
[2017-03-16] MEDS: metFORMIN 500 MG Tab.ER PO SCH ×2 (08:15→17:01)
[2017-03-16] MEDS: Phosphorus #1 250 MG Tab PO SCH ×4 (08:15→23:29)
[2017-03-16] MEDS: Hydrochlorothiazide/Losartan 12.5-50 mg Tab PO SCH (08:18)
[2017-03-16] MEDS: amLODIPine 5 MG Tab PO SCH (08:18)
[2017-03-16] MEDS: INVOKANA 300 MG PO SCH (08:19)
--- NOTE | 2017-03-16 09:53 | PCM.SURGPN ---
- General Info Date of Service: 03/16/17 Date of Surgery/Procedure: 03/14/17 POD#: 2 Post-Op Diagnosis: Diverticulosis Functional Status: Reports: Pain Controlled, Tolerating Diet, Other (Dressings taken down this morning and patient has a large hematoma at the lower aspect of his incision. This area is tender and oozing blood. His hemoglobin dropped 3 gms. His abdomen is soft and non-peritoneal although he is tender along the left flank and the lower aspect of his incision. ) - Review of Systems General: Reports: No Symptoms Pulmonary: Reports: No Symptoms Cardiovascular: Reports: No Symptoms Gastrointestinal: Reports: Abdominal Pain. Denies: Flatus Skin: Reports: Bruising (along lower aspect of incision and swelling) Neurological: Reports: No Symptoms - Patient Data Vitals - Most Recent: Last Vital Signs Temp 36.8 C 03/16/17 08:00 Pulse 100 03/15/17 15:11 Resp 18 03/16/17 08:00 BP 107/72 03/16/17 08:18 Pulse Ox 98 03/16/17 08:00 Weight - Most Recent: 93.7 kg I&O - Last 24 Hours: Intake & Output 03/15/17 03/16/17 03/16/17 22:59 06:59 14:59 Intake Total 2375 950 600 Output Total 1250 2250 Balance 1125 -1300 600 Lab Results Last 24 Hrs: Laboratory Results - last 24 hr 03/15/17 03/15/17 03/16/17 Range/Units 12:14 18:15 00:24 WBC (4.0-11.0) K/uL RBC (4.50-5.90) M/uL Hgb (13.0-17.0) g/dL Hct (38.0-50.0) % MCV (80.0-98.0) fL MCH (27.0-32.0) pg MCHC (31.0-37.0) g/dL RDW Std Deviation (28.0-62.0) fl RDW Coeff of Rajendra (11.0-15.0) % Plt Count (150-400) K/uL MPV (7.40-12.00) fL Neut % (Auto) (48.0-80.0) % Lymph % (Auto) (16.0-40.0) % Reagan % (Auto) (0.0-15.0) % Eos % (Auto) (0.0-7.0) % Baso % (Auto) (0.0-1.5) % Neut # (Auto) (1.4-5.7) K/uL Lymph # (Auto) (0.6-2.4) K/uL Reagan # (Auto) (0.0-0.8) K/uL Eos # (Auto) (0.0-0.7) K/uL Baso # (Auto) (0.0-0.1) K/uL Nucleated RBC % /100WBC Nucleated RBCs # K/uL INR (0.86-1.11) APTT (18.6-31.3) SEC Sodium (136-146) mmol/L Potassium (3.5-5.1) mmol/L Chloride (98-110) mmol/L Carbon Dioxide (21-31) mmol/L BUN (6.0-23.0) mg/dL Creatinine (0.6-1.5) mg/dL Est Cr Clr Drug Dosing mL/min Estimated GFR (MDRD) ml/min Glucose (60-110) mg/dL POC Glucose 93 92 109 (60-110) mg/dL Calcium (8.8-10.8) mg/dL Phosphorus (2.4-4.7) mg/dL Magnesium (1.5-2.3) mEq/L 03/16/17 03/16/17 03/16/17 Range/Units 04:39 04:39 06:41 WBC 9.58 (4.0-11.0) K/uL RBC 3.61 L (4.50-5.90) M/uL Hgb 11.5 L (13.0-17.0) g/dL Hct 35.3 L (38.0-50.0) % MCV 97.8 (80.0-98.0) fL MCH 31.9 (27.0-32.0) pg MCHC 32.6 (31.0-37.0) g/dL RDW Std Deviation 49.1 (28.0-62.0) fl RDW Coeff of Rajendra 14 (11.0-15.0) % Plt Count 202 (150-400) K/uL MPV 10.70 (7.40-12.00) fL Neut % (Auto) 76.4 (48.0-80.0) % Lymph % (Auto) 10.1 L (16.0-40.0) % Reagan % (Auto) 11.7 (0.0-15.0) % Eos % (Auto) 1.5 (0.0-7.0) % Baso % (Auto) 0.3 (0.0-1.5) % Neut # (Auto) 7.3 H (1.4-5.7) K/uL Lymph # (Auto) 1.0 (0.6-2.4) K/uL Reagan # (Auto) 1.1 H (0.0-0.8) K/uL Eos # (Auto) 0.1 (0.0-0.7) K/uL Baso # (Auto) 0.0 (0.0-0.1) K/uL Nucleated RBC % 0.0 /100WBC Nucleated RBCs # 0 K/uL INR (0.86-1.11) APTT (18.6-31.3) SEC Sodium 141 (136-146) mmol/L Potassium 3.8 (3.5-5.1) mmol/L Chloride 108 (98-110) mmol/L Carbon Dioxide 25 (21-31) mmol/L BUN 13 (6.0-23.0) mg/dL Creatinine 0.8 (0.6-1.5) mg/dL Est Cr Clr Drug Dosing 94.63 mL/min Estimated GFR (MDRD) > 60.0 ml/min Glucose 100 (60-110) mg/dL POC Glucose 85 (60-110) mg/dL Calcium 8.4 L (8.8-10.8) mg/dL Phosphorus 1.5 L (2.4-4.7) mg/dL Magnesium 1.6 (1.5-2.3) mEq/L 03/16/17 03/16/17 Range/Units 08:13 08:13 WBC (4.0-11.0) K/uL RBC (4.50-5.90) M/uL Hgb 11.3 L (13.0-17.0) g/dL Hct (38.0-50.0) % MCV (80.0-98.0) fL MCH (27.0-32.0) pg MCHC (31.0-37.0) g/dL RDW Std Deviation (28.0-62.0) fl RDW Coeff of Rajendra (11.0-15.0) % Plt Count (150-400) K/uL MPV (7.40-12.00) fL Neut % (Auto) (48.0-80.0) % Lymph % (Auto) (16.0-40.0) % Reagan % (Auto) (0.0-15.0) % Eos % (Auto) (0.0-7.0) % Baso % (Auto) (0.0-1.5) % Neut # (Auto) (1.4-5.7) K/uL Lymph # (Auto) (0.6-2.4) K/uL Reagan # (Auto) (0.0-0.8) K/uL Eos # (Auto) (0.0-0.7) K/uL Baso # (Auto) (0.0-0.1) K/uL Nucleated RBC % /100WBC Nucleated RBCs # K/uL INR 1.01 (0.86-1.11) APTT 31.3 (18.6-31.3) SEC Sodium (136-146) mmol/L Potassium (3.5-5.1) mmol/L Chloride (98-110) mmol/L Carbon Dioxide (21-31) mmol/L BUN (6.0-23.0) mg/dL Creatinine (0.6-1.5) mg/dL Est Cr Clr Drug Dosing mL/min Estimated GFR (MDRD) ml/min Glucose (60-110) mg/dL POC Glucose (60-110) mg/dL Calcium (8.8-10.8) mg/dL Phosphorus (2.4-4.7) mg/dL Magnesium (1.5-2.3) mEq/L Med Orders - Current: Current Medications Amlodipine Besylate (Norvasc) 10 mg PO DAILY [facility] Last Admin: 03/16/17 08:18 Dose: Not Given Cyclobenzaprine HCl (Flexeril) 10 mg PO TID [facility] Last Admin: 03/16/17 05:49 Dose: 10 mg Diphenhydramine HCl (Benadryl) 25 mg IVPUSH Q4H PRN PRN Reason: Itching HCTZ/Losartan Potassium (Hyzaar 50-12.5 Mg) 1 tab PO DAILY [facility] Last Admin: 03/16/17 08:18 Dose: Not Given Hydromorphone HCl (Dilaudid [employer] 6 Mg In Ns 30 Ml) 6 mg IV ASDIRECTED PRN; Protocol PRN Reason: Pain Last Admin: 03/15/17 04:22 Dose: 6 mg Sodium Chloride (Normal Saline) 1,000 mls @ 125 mls/hr IV ASDIRECTED [facility] Last Admin: 03/15/17 07:31 Dose: 125 mls/hr Magnesium Sulfate 4 gm/ Premix 100 mls @ 50 mls/hr IV ONETIME ONE Stop: 03/16/17 09:59 Last Admin: 03/16/17 08:13 Dose: 50 mls/hr Sodium Chloride (Normal Saline) 500 mls @ 500 mls/hr IV .BOLUS [facility] Last Admin: 03/16/17 08:10 Dose: 500 mls/hr Insulin Aspart (Novolog) 0 unit SUBCUT Q12H [facility] PRN Reason: Protocol Last Admin: 03/16/17 07:00 Dose: Not Given Metformin HCl (Glucophage Xr) 500 mg PO BIDMEALS [facility] Last Admin: 03/16/17 08:15 Dose: 500 mg Metoprolol Tartrate (Lopressor) 5 mg IVPUSH Q4H PRN PRN Reason: Other Last Admin: 03/15/17 15:11 Dose: 5 mg Ondansetron HCl (Zofran) 4 mg IVPUSH Q6H PRN PRN Reason: Nausea/Vomiting Oxycodone/Acetaminophen (Percocet 325-5 Mg) 2 tab PO Q4H PRN PRN Reason: Abdominal Pain Invokana 300 Mg 1 each PO DAILY [facility] Last Admin: 03/16/17 08:19 Dose: 1 each Phenol/Menthol (Chloraseptic Throat Mcgill) 1 ml MUCMEM Q2H PRN PRN Reason: Pain Sodium Chloride (Saline Flush) 10 ml FLUSH ASDIRECTED PRN PRN Reason: Keep Vein Open Sodium Chloride (Saline Flush) 2.5 ml FLUSH ASDIRECTED PRN PRN Reason: Keep Vein Open Sodium Phosphate (Neutra-Phos) 250 mg PO QID [facility] Last Admin: 03/16/17 08:15 Dose: 250 mg Discontinued Medications Bupivacaine HCl (Sensorcaine-Mpf 0.5%) Confirm Administered Dose 10 ml .ROUTE .STK-MED ONE Stop: 03/14/17 07:35 Bupivacaine HCl (Marcaine 0.5%) Confirm Administered Dose 120 ml .ROUTE .STK- MED ONE Stop: 03/14/17 07:36 Cefazolin Sodium (Ancef) Confirm Administered Dose 1 gm .ROUTE .STK-MED ONE Stop: 03/14/17 07:34 Diazepam (Valium) 2.5 mg IVPUSH Q2H PRN PRN Reason: Spasms Last Admin: 03/15/17 06:51 Dose: 2.5 mg Enoxaparin Sodium (Lovenox) 40 mg SUBCUT DAILY [facility] Last Admin: 03/15/17 09:10 Dose: 40 mg Fentanyl (Sublimaze) Confirm Administered Dose 400 mcg .ROUTE .STK-MED ONE Stop: 03/14/17 07:28 Fentanyl (Sublimaze) 50 mcg IVPUSH Q5M PRN PRN Reason: Pain (severe 7-10) Stop: 03/15/17 08:52 Last Admin: 03/14/17 12:59 Dose: 50 mcg Glycopyrrolate () Confirm Administered Dose 1 mg .ROUTE .STK-MED ONE Stop: 03/14/17 07:30 Hydromorphone HCl (Dilaudid) Confirm Administered Dose 2 mg .ROUTE .STK-MED ONE Stop: 03/14/17 08:29 Hydromorphone HCl (Dilaudid) 0 mg IVPUSH ONETIME ONE Stop: 03/14/17 08:53 Last Admin: 03/14/17 12:12 Dose: 1 mg Hydromorphone HCl (Dilaudid) Confirm Administered Dose 2 mg .ROUTE .STK-MED ONE Stop: 03/14/17 11:48 Last Admin: 03/14/17 15:00 Dose: Not Given Lactated Ringer's (Ringers, Lactated) 1,000 mls @ 125 mls/hr IV ASDIRECTED [facility] Last Admin: 03/14/17 07:15 Dose: 125 mls/hr Meropenem 1 gm/ Sodium (Chloride) 100 mls @ 200 mls/hr IV ONETIME ONE Stop: 03/13/17 08:33 Last Admin: 03/14/17 15:38 Dose: Not Given Piperacillin Sod/Tazobactam (Sod 3.375 gm/ Sodium Chloride) 50 mls @ 100 mls/ hr IV ONETIME ONE Stop: 03/13/17 08:37 Last Admin: 03/14/17 08:02 Dose: 100 mls/hr Bupivacaine HCl/Epinephrine Bitart (Sensorc Mpf 0.25%-Epi [id number]) Confirm Administered Dose 120 mls @ as directed .ROUTE .STK-MED ONE Stop: 03/14/17 07:35 Lactated Ringer's (Ringers, Lactated) 1,000 mls @ 1,000 mls/hr IV .BOLUS ONE Stop: 03/14/17 12:38 Last Admin: 03/14/17 15:00 Dose: Not Given Sodium Chloride (Normal Saline) 1,000 mls @ 1,000 mls/hr IV .Bolus ONE Stop: 03/14/17 14:07 Last Admin: 03/14/17 15:03 Dose: Not Given Sodium Chloride (Normal Saline) 500 mls @ 500 mls/hr IV .BOLUS [facility] Last Admin: 03/14/17 15:47 Dose: 500 mls/hr Magnesium Sulfate 4 gm/ Premix 100 mls @ 50 mls/hr IV ONETIME ONE Stop: 03/15/17 08:59 Last Admin: 03/15/17 07:43 Dose: 50 mls/hr Insulin Aspart (Novolog) 0 unit SUBCUT ACBREAKFASTANDBED [facility] PRN Reason: Protocol Ketorolac Tromethamine (Toradol) 15 mg IVPUSH Q6H [facility] Stop: 03/20/17 07:04 Last Admin: 03/16/17 06:34 Dose: 15 mg Lidocaine (Xylocaine-Mpf 2%) Confirm Administered Dose 10 ml .ROUTE .STK-MED ONE Stop: 03/14/17 07:28 Midazolam HCl (Versed 1 Mg/Ml) Confirm Administered Dose 2 mg .ROUTE .STK-MED ONE Stop: 03/14/17 07:28 Neostigmine Methylsulfate (Neostigmine) Confirm Administered Dose 5 mg .ROUTE .STK-MED ONE Stop: 03/14/17 07:30 Ondansetron HCl (Zofran) Confirm Administered Dose 8 mg .ROUTE .STK-MED ONE Stop: 03/14/17 07:30 Propofol (Diprivan 20 Ml) Confirm Administered Dose 400 mg .ROUTE .STK-MED ONE Stop: 03/14/17 07:28 Propofol (Diprivan 20 Ml) Confirm Administered Dose 200 mg .ROUTE .STK-MED ONE Stop: 03/14/17 09:13 Rocuronium Waban (Zemuron) Confirm Administered Dose 100 mg .ROUTE .STK-MED ONE Stop: 03/14/17 07:30 - Exam Wound/Incisions: Drainage (Bloody drainage), Other (ecchymosis along lower aspect of incision extending to the left side ) General: Alert, Oriented HEENT: Pupils Equal Neck: Supple Lungs: Normal Respiratory Effort Cardiovascular: Regular Rhythm GI/Abdominal Exam: Tender (along left flank and lwoer aspect of incision ), Other (swelling and ecchymosis as well as bruising along lower aspect of incision ) Skin: Warm, Dry, Intact Neurological: No New Focal Deficit Psy/Mental Status: Alert, Normal Affect, Normal Mood - Problem List & Annotations (1) Diverticulitis SNOMED Code(s): 024779182 Code(s): K57.92 - DVTRCLI OF INTEST, PART UNSP, W/O PERF OR ABSCESS W/O BLEED Status: Acute Current Visit: No Qualifiers: (2) Postoperative wound hematoma SNOMED Code(s): 020681545 Code(s): RXJ0611 - Status: Acute Current Visit: Yes (3) Hypomagnesemia SNOMED Code(s): 821816293 Code(s): E83.42 - HYPOMAGNESEMIA Status: Acute Current Visit: Yes (4) Hypophosphatemia SNOMED Code(s): 6964890 Code(s): E83.39 - OTHER DISORDERS OF PHOSPHORUS METABOLISM Status: Acute Current Visit: Yes - Problem List Review Problem List Initiated/Reviewed/Updated: Yes - My Orders Last 24 Hours: Active Orders 24 hr Category Date Time Status Abdomen wo Cont [CT] Stat Exams 03/16/17 08:43 Ordered BASIC METABOLIC PANEL,BMP [CHEM] AM Lab 03/17/17 05:11 Ordered BASIC METABOLIC PANEL,BMP [CHEM] AM Lab 03/18/17 05:11 Ordered BASIC METABOLIC PANEL,BMP [CHEM] AM Lab 03/19/17 05:11 Ordered CBC WITH AUTO DIFF [HEME] AM Lab 03/17/17 05:11 Ordered CBC WITH AUTO DIFF [HEME] AM Lab 03/18/17 05:11 Ordered CBC WITH AUTO DIFF [HEME] AM Lab 03/19/17 05:11 Ordered HEMOGLOBIN [HEME] Q6H Lab 03/16/17 13:57 Ordered HEMOGLOBIN [HEME] Q6H Lab 03/16/17 19:57 Ordered HEMOGLOBIN [HEME] Q6H Lab 03/17/17 01:57 Ordered HEMOGLOBIN [HEME] Q6H Lab 03/17/17 07:57 Ordered HEMOGLOBIN [HEME] Q6H Lab 03/17/17 13:57 Ordered MAGNESIUM [CHEM] AM Lab 03/17/17 05:11 Ordered MAGNESIUM [CHEM] AM Lab 03/18/17 05:11 Ordered MAGNESIUM [CHEM] AM Lab 03/19/17 05:11 Ordered PHOSPHORUS [CHEM] AM Lab 03/17/17 05:11 Ordered PHOSPHORUS [CHEM] AM Lab 03/18/17 05:11 Ordered PHOSPHORUS [CHEM] AM Lab 03/19/17 05:11 Ordered Acetaminophen/oxyCODONE [Percocet 325-5 MG] Med 03/15/17 15:06 Active 2 tab PO Q4H PRN Hydrochlorothiazide/Losartan [Hyzaar 50-12.5 MG] Med 03/15/17 15:15 Active 1 tab PO DAILY Magnesium Sulfate/Water [Magnesium Sulfate 4 GM in Med 03/16/17 08:00 Active Water 100 ML] 4 gm Premix Bag 1 bag IV ONETIME Patient's Own Medication [Ptom] Med 03/15/17 15:45 Active 1 each PO DAILY Phosphorus #1 [Neutra-Phos] Med 03/16/17 08:00 Active 250 mg PO QID Sodium Chloride 0.9% [Normal Saline] 500 ml Med 03/16/17 08:00 Active IV .BOLUS amLODIPine [Norvasc] Med 03/15/17 15:15 Active 10 mg PO DAILY metFORMIN [Glucophage XR] Med 03/15/17 15:15 Active 500 mg PO BIDMEALS Nasogastric Orogastric Tube Removal [OM.PC] Routine Oth 03/15/17 11:00 Ordered Medication Orders Amlodipine Besylate (Norvasc) 10 mg PO DAILY [facility] Last Admin: 03/16/17 08:18 Dose: Not Given Admin: 03/15/17 15:30 Dose: 10 mg Cyclobenzaprine HCl (Flexeril) 10 mg PO TID [facility] Last Admin: 03/16/17 05:49 Dose: 10 mg Admin: 03/15/17 21:14 Dose: 10 mg Admin: 03/15/17 13:02 Dose: 10 mg Admin: 03/15/17 07:43 Dose: 10 mg Diphenhydramine HCl (Benadryl) 25 mg IVPUSH Q4H PRN PRN Reason: Itching HCTZ/Losartan Potassium (Hyzaar 50-12.5 Mg) 1 tab PO DAILY [facility] Last Admin: 03/16/17 08:18 Dose: Not Given Admin: 03/15/17 15:30 Dose: 1 tab Hydromorphone HCl (Dilaudid Business Services Specialist [employer] 6 Mg In Ns 30 Ml) 6 mg IV ASDIRECTED PRN; Protocol PRN Reason: Pain Last Admin: 03/15/17 04:22 Dose: 6 mg Admin: 03/14/17 12:37 Dose: 6 mg Sodium Chloride (Normal Saline) 1,000 mls @ 125 mls/hr IV ASDIRECTED [facility] Last Admin: 03/15/17 07:31 Dose: 125 mls/hr Infusion: 03/15/17 07:29 Dose: 125 mls/hr Admin: 03/14/17 23:29 Dose: 125 mls/hr Infusion: 03/14/17 22:35 Dose: 125 mls/hr Infusion: 03/14/17 17:13 Dose: 125 mls/hr Admin: 03/14/17 15:01 Dose: 150 mls/hr Magnesium Sulfate 4 gm/ Premix 100 mls @ 50 mls/hr IV ONETIME ONE Stop: 03/16/17 09:59 Last Admin: 03/16/17 08:13 Dose: 50 mls/hr Sodium Chloride (Normal Saline) 500 mls @ 500 mls/hr IV .BOLUS [facility] Last Admin: 03/16/17 08:10 Dose: 500 mls/hr Insulin Aspart (Novolog) 0 unit SUBCUT Q12H [facility] PRN Reason: Protocol Last Admin: 03/16/17 07:00 Dose: Not Given Admin: 03/15/17 18:18 Dose: Not Given Admin: 03/15/17 06:39 Dose: Not Given Metformin HCl (Glucophage Xr) 500 mg PO BIDMEALS [facility] Last Admin: 03/16/17 08:15 Dose: 500 mg Admin: 03/15/17 18:17 Dose: Not Given Admin: 03/15/17 15:30 Dose: 500 mg Metoprolol Tartrate (Lopressor) 5 mg IVPUSH Q4H PRN PRN Reason: Other Last Admin: 03/15/17 15:11 Dose: 5 mg Ondansetron HCl (Zofran) 4 mg IVPUSH Q6H PRN PRN Reason: Nausea/Vomiting Oxycodone/Acetaminophen (Percocet 325-5 Mg) 2 tab PO Q4H PRN PRN Reason: Abdominal Pain Invokana 300 Mg 1 each PO DAILY [facility] Last Admin: 03/16/17 08:19 Dose: 1 each Admin: 03/15/17 16:54 Dose: 1 each Phenol/Menthol (Chloraseptic Throat Mcgill) 1 ml MUCMEM Q2H PRN PRN Reason: Pain Sodium Chloride (Saline Flush) 10 ml FLUSH ASDIRECTED PRN PRN Reason: Keep Vein Open Sodium Chloride (Saline Flush) 2.5 ml FLUSH ASDIRECTED PRN PRN Reason: Keep Vein Open Sodium Phosphate (Neutra-Phos) 250 mg PO QID [facility] Last Admin: 03/16/17 08:15 Dose: 250 mg - Plan Plan (Free Text/Narrative):: -Hgb recheck was the same. PT INR normal. Ketoralac and Heparin stopped. Will get a CT to confirm the size and location of the hematoma. He is currently hemoynamically stable. Will recheck hgb q6hr. Will give a 500ml bolus of fluid. -Replace mag and phos -Clear liquid diet -Keep overton in place given concerns for bleeding. -Renal function is normal with great urine output.
[2017-03-16] MEDS ORDERED: Sodium Chloride 0.9% 1,000 ML IV SCH (10:00)
--- NOTE | 2017-03-16 10:22 | CT ---
CT of the abdomen without contrast. HISTORY: Pain TECHNIQUE: Axial CT images were obtained of the abdomen and pelvis without contrast. Coronal and sagi ttal reconstructions obtained. FINDINGS: There is atelectasis within the lung bases. Trace left pleural effusion. The liver, spleen, and pancreas appear unremarkable for noncontrast examination. 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 The gallbladder appears normal. There is no bulky retroperitoneal lympha denopathy. No abdominal ascites. There are no calcifications noted within the kidneys or along the courses of the ureters bilaterally. The large and small bowel are normal in caliber without evidence of obstruction. Diverticulosis witho ut evidence of diverticulitis. Appendix appears normal. There is no bulky pelvic lymphadenopathy. The re is a small amount of free fluid noted which is intermediate in density, likely representing a smal l amount of hemorrhage. There is a small amount of air likely secondary to recent laparotomy. There i s likely a tiny 1.9 cm hematoma along the laparotomy incision. There is a Ordonez catheter within the u rinary bladder The visualized osseous structures appear normal. IMPRESSION: 1. Postoperative changes noted from recent laparotomy is a trace free air. 2. There is a small hematoma within the subcutaneous tissues adjacent to the median laparotomy and a small amount of hemoperitoneum, however the combination of the 2 is likely not sufficient to demonstr ate a significant drop in hemoglobin. 3. Diverticulosis.
[2017-03-16] MEDS: Acetaminophen/oxyCODONE 325-5 MG Tab PO PRN ×2 (11:58→23:28)
[2017-03-16] MEDS ORDERED: HYDROmorphone 1 MG/ML Syringe IVPUSH PRN (16:17)
[2017-03-17] MEDS ORDERED: Sodium Chloride 0.9% 1,000 ML IV SCH
[2017-03-17 02:36] LABS: CHLORIDE,CL 107 mmol/L (98-110); SODIUM,NA 139 mmol/L (136-146)
[2017-03-17] MEDS: Insulin Aspart 100 Units/ML 3 ML Pen SUBCUT SCH ×3 (06:23→18:26)
[2017-03-17] MEDS: Cyclobenzaprine 10 MG Tab PO SCH ×4 (06:52→22:25)
[2017-03-17] MEDS: Phosphorus #1 250 MG Tab PO SCH ×2 (06:52→08:13)
[2017-03-17] MEDS: Magnesium Chloride 64 MG Tab.ER PO SCH ×2 (08:40→09:30)
[2017-03-17] MEDS: metFORMIN 500 MG Tab.ER PO SCH ×2 (08:40→18:26)
[2017-03-17] MEDS: Hydrochlorothiazide/Losartan 12.5-50 mg Tab PO SCH (08:40)
[2017-03-17] MEDS: Acetaminophen/oxyCODONE 325-5 MG Tab PO PRN ×2 (08:54→15:25)
[2017-03-17] MEDS: amLODIPine 5 MG Tab PO SCH (09:30)
[2017-03-17] MEDS: INVOKANA 300 MG PO SCH (09:31)
--- NOTE | 2017-03-17 10:25 | PCM.SURGPN ---
- General Info Date of Service: 03/17/17 Date of Surgery/Procedure: 03/14/17 POD#: 3 Functional Status: Reports: Pain Controlled, Other (Patient had bleeding from his inferior midline wound all day yesterday with multiple dressing changes. His hgb slowly trended down. The wound was packed with surgicel but continued to bleed. This morning his dressings were changed at 6 am and they have been dry for 3 hours. The patient feels weak, but denies dizziness, lightheadedness. Vital signs have been stable. ) - Review of Systems General: Reports: Fatigue HEENT: Reports: No Symptoms Pulmonary: Reports: No Symptoms Cardiovascular: Reports: No Symptoms Gastrointestinal: Reports: No Symptoms - Patient Data Vitals - Most Recent: Last Vital Signs Temp 36.7 C 03/17/17 04:00 Pulse 100 03/15/17 15:11 Resp 12 03/17/17 10:00 BP 115/79 03/17/17 10:00 Pulse Ox 97 03/17/17 10:00 Weight - Most Recent: 88.2 kg I&O - Last 24 Hours: Intake & Output 03/16/17 03/17/17 03/17/17 22:59 06:59 14:59 Intake Total 878 694 Output Total 1200 950 Balance -322 -256 Lab Results Last 24 Hrs: Laboratory Results - last 24 hr 03/16/17 03/16/17 03/16/17 Range/Units 12:00 14:26 18:19 WBC (4.0-11.0) K/uL RBC (4.50-5.90) M/uL Hgb 10.0 L (13.0-17.0) g/dL Hct (38.0-50.0) % MCV (80.0-98.0) fL MCH (27.0-32.0) pg MCHC (31.0-37.0) g/dL RDW Std Deviation (28.0-62.0) fl RDW Coeff of Rajendra (11.0-15.0) % Plt Count (150-400) K/uL MPV (7.40-12.00) fL Neut % (Auto) (48.0-80.0) % Lymph % (Auto) (16.0-40.0) % [place] % (Auto) (0.0-15.0) % Eos % (Auto) (0.0-7.0) % Baso % (Auto) (0.0-1.5) % Neut # (Auto) (1.4-5.7) K/uL Lymph # (Auto) (0.6-2.4) K/uL [place] # (Auto) (0.0-0.8) K/uL Eos # (Auto) (0.0-0.7) K/uL Baso # (Auto) (0.0-0.1) K/uL Nucleated RBC % /100WBC Nucleated RBCs # K/uL Sodium (136-146) mmol/L Potassium (3.5-5.1) mmol/L Chloride (98-110) mmol/L Carbon Dioxide (21-31) mmol/L BUN (6.0-23.0) mg/dL Creatinine (0.6-1.5) mg/dL Est Cr Clr Drug Dosing mL/min Estimated GFR (MDRD) ml/min Glucose (60-110) mg/dL POC Glucose 98 103 (60-110) mg/dL Calcium (8.8-10.8) mg/dL Phosphorus (2.4-4.7) mg/dL Magnesium (1.5-2.3) mEq/L Blood Type Antibody Screen Crossmatch 03/16/17 03/16/17 03/17/17 Range/Units 19:58 19:58 00:04 WBC (4.0-11.0) K/uL RBC (4.50-5.90) M/uL Hgb 10.5 L (13.0-17.0) g/dL Hct (38.0-50.0) % MCV (80.0-98.0) fL MCH (27.0-32.0) pg MCHC (31.0-37.0) g/dL RDW Std Deviation (28.0-62.0) fl RDW Coeff of Rajendra (11.0-15.0) % Plt Count (150-400) K/uL MPV (7.40-12.00) fL Neut % (Auto) (48.0-80.0) % Lymph % (Auto) (16.0-40.0) % [place] % (Auto) (0.0-15.0) % Eos % (Auto) (0.0-7.0) % Baso % (Auto) (0.0-1.5) % Neut # (Auto) (1.4-5.7) K/uL Lymph # (Auto) (0.6-2.4) K/uL [place] # (Auto) (0.0-0.8) K/uL Eos # (Auto) (0.0-0.7) K/uL Baso # (Auto) (0.0-0.1) K/uL Nucleated RBC % /100WBC Nucleated RBCs # K/uL Sodium (136-146) mmol/L Potassium (3.5-5.1) mmol/L Chloride (98-110) mmol/L Carbon Dioxide (21-31) mmol/L BUN (6.0-23.0) mg/dL Creatinine (0.6-1.5) mg/dL Est Cr Clr Drug Dosing mL/min Estimated GFR (MDRD) ml/min Glucose (60-110) mg/dL POC Glucose 80 (60-110) mg/dL Calcium (8.8-10.8) mg/dL Phosphorus (2.4-4.7) mg/dL Magnesium (1.5-2.3) mEq/L Blood Type O POSITIVE Antibody Screen NEGATIVE Crossmatch See Detail 03/17/17 03/17/17 03/17/17 Range/Units 02:11 02:11 06:20 WBC 8.30 (4.0-11.0) K/uL RBC 2.94 L (4.50-5.90) M/uL Hgb 9.5 L (13.0-17.0) g/dL Hct 28.5 L (38.0-50.0) % MCV 96.9 (80.0-98.0) fL MCH 32.3 H (27.0-32.0) pg MCHC 33.3 (31.0-37.0) g/dL RDW Std Deviation 48.0 (28.0-62.0) fl RDW Coeff of Rajendra 14 (11.0-15.0) % Plt Count 212 (150-400) K/uL MPV 9.70 (7.40-12.00) fL Neut % (Auto) 72.1 (48.0-80.0) % Lymph % (Auto) 15.1 L (16.0-40.0) % [place] % (Auto) 9.4 (0.0-15.0) % Eos % (Auto) 3.0 (0.0-7.0) % Baso % (Auto) 0.4 (0.0-1.5) % Neut # (Auto) 6.0 H (1.4-5.7) K/uL Lymph # (Auto) 1.3 (0.6-2.4) K/uL [place] # (Auto) 0.8 (0.0-0.8) K/uL Eos # (Auto) 0.3 (0.0-0.7) K/uL Baso # (Auto) 0.0 (0.0-0.1) K/uL Nucleated RBC % 0.0 /100WBC Nucleated RBCs # 0 K/uL Sodium 139 (136-146) mmol/L Potassium 3.6 (3.5-5.1) mmol/L Chloride 107 (98-110) mmol/L Carbon Dioxide 23 (21-31) mmol/L BUN 14 (6.0-23.0) mg/dL Creatinine 0.9 (0.6-1.5) mg/dL Est Cr Clr Drug Dosing 84.11 mL/min Estimated GFR (MDRD) > 60.0 ml/min Glucose 93 (60-110) mg/dL POC Glucose 70 (60-110) mg/dL Calcium 8.3 L (8.8-10.8) mg/dL Phosphorus 3.2 (2.4-4.7) mg/dL Magnesium 1.6 (1.5-2.3) mEq/L Blood Type Antibody Screen Crossmatch 03/17/17 Range/Units 08:10 WBC (4.0-11.0) K/uL RBC (4.50-5.90) M/uL Hgb 8.9 L (13.0-17.0) g/dL Hct (38.0-50.0) % MCV (80.0-98.0) fL MCH (27.0-32.0) pg MCHC (31.0-37.0) g/dL RDW Std Deviation (28.0-62.0) fl RDW Coeff of Rajendra (11.0-15.0) % Plt Count (150-400) K/uL MPV (7.40-12.00) fL Neut % (Auto) (48.0-80.0) % Lymph % (Auto) (16.0-40.0) % [place] % (Auto) (0.0-15.0) % Eos % (Auto) (0.0-7.0) % Baso % (Auto) (0.0-1.5) % Neut # (Auto) (1.4-5.7) K/uL Lymph # (Auto) (0.6-2.4) K/uL [place] # (Auto) (0.0-0.8) K/uL Eos # (Auto) (0.0-0.7) K/uL Baso # (Auto) (0.0-0.1) K/uL Nucleated RBC % /100WBC Nucleated RBCs # K/uL Sodium (136-146) mmol/L Potassium (3.5-5.1) mmol/L Chloride (98-110) mmol/L Carbon Dioxide (21-31) mmol/L BUN (6.0-23.0) mg/dL Creatinine (0.6-1.5) mg/dL Est Cr Clr Drug Dosing mL/min Estimated GFR (MDRD) ml/min Glucose (60-110) mg/dL POC Glucose (60-110) mg/dL Calcium (8.8-10.8) mg/dL Phosphorus (2.4-4.7) mg/dL Magnesium (1.5-2.3) mEq/L Blood Type Antibody Screen Crossmatch Med Orders - Current: Current Medications Amlodipine Besylate (Norvasc) 10 mg PO DAILY [facility] Last Admin: 03/17/17 09:30 Dose: Not Given Cyclobenzaprine HCl (Flexeril) 10 mg PO TID [facility] Last Admin: 03/17/17 08:40 Dose: 10 mg Diphenhydramine HCl (Benadryl) 25 mg IVPUSH Q4H PRN PRN Reason: Itching HCTZ/Losartan Potassium (Hyzaar 50-12.5 Mg) 1 tab PO DAILY [facility] Last Admin: 03/17/17 08:40 Dose: Not Given Hydromorphone HCl (Dilaudid) 1 mg IVPUSH Q2H PRN PRN Reason: Abdominal Pain Sodium Chloride (Normal Saline) 1,000 mls @ 50 mls/hr IV ASDIRECTED [facility] Last Admin: 03/16/17 10:16 Dose: 50 mls/hr Sodium Chloride (Normal Saline) 1,000 mls @ 100 mls/hr IV ASDIRECTED [facility] Last Admin: 03/17/17 00:11 Dose: 100 mls/hr Insulin Aspart (Novolog) 0 unit SUBCUT Q12H [facility] PRN Reason: Protocol Last Admin: 03/17/17 06:23 Dose: Not Given Magnesium Chloride (Mag-64) 64 mg PO DAILY [facility] Last Admin: 03/17/17 09:30 Dose: Not Given Metformin HCl (Glucophage Xr) 500 mg PO BIDMEALS [facility] Last Admin: 03/17/17 08:40 Dose: Not Given Metoprolol Tartrate (Lopressor) 5 mg IVPUSH Q4H PRN PRN Reason: Other Last Admin: 03/15/17 15:11 Dose: 5 mg Ondansetron HCl (Zofran) 4 mg IVPUSH Q6H PRN PRN Reason: Nausea/Vomiting Oxycodone/Acetaminophen (Percocet 325-5 Mg) 2 tab PO Q4H PRN PRN Reason: Abdominal Pain Last Admin: 03/17/17 08:54 Dose: 2 tab Invokana 300 Mg 1 each PO DAILY [facility] Last Admin: 03/17/17 09:31 Dose: Not Given Phenol/Menthol (Chloraseptic Throat [place]) 1 ml MUCMEM Q2H PRN PRN Reason: Pain Sodium Chloride (Saline Flush) 10 ml FLUSH ASDIRECTED PRN PRN Reason: Keep Vein Open Sodium Chloride (Saline Flush) 2.5 ml FLUSH ASDIRECTED PRN PRN Reason: Keep Vein Open Discontinued Medications Bupivacaine HCl (Sensorcaine-Mpf 0.5%) Confirm Administered Dose 10 ml .ROUTE .STK-MED ONE Stop: 03/14/17 07:35 Bupivacaine HCl (Marcaine 0.5%) Confirm Administered Dose 120 ml .ROUTE .STK- MED ONE Stop: 03/14/17 07:36 Cefazolin Sodium (Ancef) Confirm Administered Dose 1 gm .ROUTE .STK-MED ONE Stop: 03/14/17 07:34 Diazepam (Valium) 2.5 mg IVPUSH Q2H PRN PRN Reason: Spasms Last Admin: 03/15/17 06:51 Dose: 2.5 mg Enoxaparin Sodium (Lovenox) 40 mg SUBCUT DAILY [facility] Last Admin: 03/15/17 09:10 Dose: 40 mg Fentanyl (Sublimaze) Confirm Administered Dose 400 mcg .ROUTE .STK-MED ONE Stop: 03/14/17 07:28 Fentanyl (Sublimaze) 50 mcg IVPUSH Q5M PRN PRN Reason: Pain (severe 7-10) Stop: 03/15/17 08:52 Last Admin: 03/14/17 12:59 Dose: 50 mcg Glycopyrrolate () Confirm Administered Dose 1 mg .ROUTE .STK-MED ONE Stop: 03/14/17 07:30 Hydromorphone HCl (Dilaudid) Confirm Administered Dose 2 mg .ROUTE .STK-MED ONE Stop: 03/14/17 08:29 Hydromorphone HCl (Dilaudid) 0 mg IVPUSH ONETIME ONE Stop: 03/14/17 08:53 Last Admin: 03/14/17 12:12 Dose: 1 mg Hydromorphone HCl (Dilaudid [place] 6 Mg In Ns 30 Ml) 6 mg IV ASDIRECTED PRN; Protocol PRN Reason: Pain Last Admin: 03/15/17 04:22 Dose: 6 mg Hydromorphone HCl (Dilaudid) Confirm Administered Dose 2 mg .ROUTE .STK-MED ONE Stop: 03/14/17 11:48 Last Admin: 03/14/17 15:00 Dose: Not Given Lactated Ringer's (Ringers, Lactated) 1,000 mls @ 125 mls/hr IV ASDIRECTED [facility] Last Admin: 03/14/17 07:15 Dose: 125 mls/hr Meropenem 1 gm/ Sodium (Chloride) 100 mls @ 200 mls/hr IV ONETIME ONE Stop: 03/13/17 08:33 Last Admin: 03/14/17 15:38 Dose: Not Given Piperacillin Sod/Tazobactam (Sod 3.375 gm/ Sodium Chloride) 50 mls @ 100 mls/ hr IV ONETIME ONE Stop: 03/13/17 08:37 Last Admin: 03/14/17 08:02 Dose: 100 mls/hr Bupivacaine HCl/Epinephrine Bitart (Sensorc Mpf 0.25%-Epi [id number]) Confirm Administered Dose 120 mls @ as directed .ROUTE .STK-MED ONE Stop: 03/14/17 07:35 Lactated Ringer's (Ringers, Lactated) 1,000 mls @ 1,000 mls/hr IV .BOLUS ONE Stop: 03/14/17 12:38 Last Admin: 03/14/17 15:00 Dose: Not Given Sodium Chloride (Normal Saline) 1,000 mls @ 125 mls/hr IV ASDIRECTED [facility] Last Admin: 03/15/17 07:31 Dose: 125 mls/hr Sodium Chloride (Normal Saline) 1,000 mls @ 1,000 mls/hr IV .Bolus ONE Stop: 03/14/17 14:07 Last Admin: 03/14/17 15:03 Dose: Not Given Sodium Chloride (Normal Saline) 500 mls @ 500 mls/hr IV .BOLUS [facility] Last Admin: 03/14/17 15:47 Dose: 500 mls/hr Magnesium Sulfate 4 gm/ Premix 100 mls @ 50 mls/hr IV ONETIME ONE Stop: 03/15/17 08:59 Last Admin: 03/15/17 07:43 Dose: 50 mls/hr Magnesium Sulfate 4 gm/ Premix 100 mls @ 50 mls/hr IV ONETIME ONE Stop: 03/16/17 09:59 Last Admin: 03/16/17 08:13 Dose: 50 mls/hr Sodium Chloride (Normal Saline) 500 mls @ 500 mls/hr IV .BOLUS [facility] Last Admin: 03/16/17 08:10 Dose: 500 mls/hr Insulin Aspart (Novolog) 0 unit SUBCUT ACBREAKFASTANDBED [facility] PRN Reason: Protocol Ketorolac Tromethamine (Toradol) 15 mg IVPUSH Q6H [facility] Stop: 03/20/17 07:04 Last Admin: 03/16/17 06:34 Dose: 15 mg Lidocaine (Xylocaine-Mpf 2%) Confirm Administered Dose 10 ml .ROUTE .STK-MED ONE Stop: 03/14/17 07:28 Midazolam HCl (Versed 1 Mg/Ml) Confirm Administered Dose 2 mg .ROUTE .STK-MED ONE Stop: 03/14/17 07:28 Neostigmine Methylsulfate (Neostigmine) Confirm Administered Dose 5 mg .ROUTE .STK-MED ONE Stop: 03/14/17 07:30 Ondansetron HCl (Zofran) Confirm Administered Dose 8 mg .ROUTE .STK-MED ONE Stop: 03/14/17 07:30 Propofol (Diprivan 20 Ml) Confirm Administered Dose 400 mg .ROUTE .STK-MED ONE Stop: 03/14/17 07:28 Propofol (Diprivan 20 Ml) Confirm Administered Dose 200 mg .ROUTE .STK-MED ONE Stop: 03/14/17 09:13 Rocuronium [place] (Zemuron) Confirm Administered Dose 100 mg .ROUTE .STK-MED ONE Stop: 03/14/17 07:30 Sodium Phosphate (Neutra-Phos) 250 mg PO QID [facility] Last Admin: 03/17/17 08:13 Dose: Not Given - Exam Wound/Incisions: Other (Ecchymosis along the lower midline. No drainage this morning. ) General: Alert, Oriented, Cooperative, No Acute Distress Lungs: Clear to Auscultation, Normal Respiratory Effort Cardiovascular: Regular Rate, Regular Rhythm GI/Abdominal Exam: Soft, No Distention, No Mass, Tender (Mildly tender along left flank and lower midline incision but improved. ) - Problem List & Annotations (1) Diverticulitis SNOMED Code(s): 230239666 Code(s): K57.92 - DVTRCLI OF INTEST, PART UNSP, W/O PERF OR ABSCESS W/O BLEED Status: Acute Current Visit: No Qualifiers: (2) Postoperative wound hematoma SNOMED Code(s): 972161950 Code(s): ZFG2708 - Status: Acute Current Visit: Yes (3) Hypomagnesemia SNOMED Code(s): 233386376 Code(s): E83.42 - HYPOMAGNESEMIA Status: Acute Current Visit: Yes (4) Hypophosphatemia SNOMED Code(s): 7368415 Code(s): E83.39 - OTHER DISORDERS OF PHOSPHORUS METABOLISM Status: Acute Current Visit: Yes - Problem List Review Problem List Initiated/Reviewed/Updated: Yes - My Orders Last 24 Hours: Active Orders 24 hr Category Date Time Status Bedrest [RC] ASDIRECTED Care 03/16/17 18:41 Active Communication Order [RC] PER UNIT ROUTINE Care 03/16/17 23:00 Active NPO Now [Nothing per Oral Now Diet] [DIET] Diet 03/16/17 Dinner Active BASIC METABOLIC PANEL,BMP [CHEM] AM Lab 03/18/17 05:11 Ordered BASIC METABOLIC PANEL,BMP [CHEM] AM Lab 03/19/17 05:11 Ordered CBC WITH AUTO DIFF [HEME] AM Lab 03/18/17 05:11 Ordered CBC WITH AUTO DIFF [HEME] AM Lab 03/19/17 05:11 Ordered HEMOGLOBIN [HEME] Q6H Lab 03/17/17 13:57 Ordered MAGNESIUM [CHEM] AM Lab 03/18/17 05:11 Ordered MAGNESIUM [CHEM] AM Lab 03/19/17 05:11 Ordered PACKED CELLS [RED BLOOD CELLS LP] [BBK] Routine Lab 03/16/17 19:58 Results PHOSPHORUS [CHEM] AM Lab 03/18/17 05:11 Ordered PHOSPHORUS [CHEM] AM Lab 03/19/17 05:11 Ordered TYPE AND SCREEN [BBK] Routine Lab 03/16/17 19:58 Results HYDROmorphone [Dilaudid] Med 03/16/17 16:17 Active 1 mg IVPUSH Q2H PRN Magnesium Chloride [Mag-64] Med 03/17/17 08:00 Active 64 mg PO DAILY Sodium Chloride 0.9% [Normal Saline] 1,000 ml Med 03/16/17 10:00 Active IV ASDIRECTED Sodium Chloride 0.9% [Normal Saline] 1,000 ml Med 03/17/17 00:00 Active IV ASDIRECTED Medication Orders Amlodipine Besylate (Norvasc) 10 mg PO DAILY [facility] Last Admin: 03/17/17 09:30 Dose: Not Given Admin: 03/16/17 08:18 Dose: Not Given Admin: 03/15/17 15:30 Dose: 10 mg Cyclobenzaprine HCl (Flexeril) 10 mg PO TID [facility] Last Admin: 03/17/17 08:40 Dose: 10 mg Admin: 03/16/17 22:09 Dose: 10 mg Admin: 03/16/17 15:48 Dose: 10 mg Admin: 03/16/17 05:49 Dose: 10 mg Admin: 03/15/17 21:14 Dose: 10 mg Admin: 03/15/17 13:02 Dose: 10 mg Admin: 03/15/17 07:43 Dose: 10 mg Diphenhydramine HCl (Benadryl) 25 mg IVPUSH Q4H PRN PRN Reason: Itching HCTZ/Losartan Potassium (Hyzaar 50-12.5 Mg) 1 tab PO DAILY [facility] Last Admin: 03/17/17 08:40 Dose: Not Given Admin: 03/16/17 08:18 Dose: Not Given Admin: 03/15/17 15:30 Dose: 1 tab Hydromorphone HCl (Dilaudid) 1 mg IVPUSH Q2H PRN PRN Reason: Abdominal Pain Sodium Chloride (Normal Saline) 1,000 mls @ 50 mls/hr IV ASDIRECTED [facility] Last Admin: 03/16/17 10:16 Dose: 50 mls/hr Sodium Chloride (Normal Saline) 1,000 mls @ 100 mls/hr IV ASDIRECTED [facility] Last Admin: 03/17/17 00:11 Dose: 100 mls/hr Insulin Aspart (Novolog) 0 unit SUBCUT Q12H [facility] PRN Reason: Protocol Last Admin: 03/17/17 06:23 Dose: Not Given Admin: 03/16/17 18:21 Dose: Not Given Admin: 03/16/17 07:00 Dose: Not Given Admin: 03/15/17 18:18 Dose: Not Given Admin: 03/15/17 06:39 Dose: Not Given Magnesium Chloride (Mag-64) 64 mg PO DAILY [facility] Last Admin: 03/17/17 09:30 Dose: Admin: 03/17/17 08:40 Dose: 64 mg Metformin HCl (Glucophage Xr) 500 mg PO BIDMEALS [facility] Last Admin: 03/17/17 08:40 Dose: Admin: 03/16/17 17:01 Dose: Admin: 03/16/17 08:15 Dose: 500 mg Admin: 03/15/17 18:17 Dose: Not Given Admin: 03/15/17 15:30 Dose: 500 mg Metoprolol Tartrate (Lopressor) 5 mg IVPUSH Q4H PRN PRN Reason: Other Last Admin: 03/15/17 15:11 Dose: 5 mg Ondansetron HCl (Zofran) 4 mg IVPUSH Q6H PRN PRN Reason: Nausea/Vomiting Oxycodone/Acetaminophen (Percocet 325-5 Mg) 2 tab PO Q4H PRN PRN Reason: Abdominal Pain Last Admin: 03/17/17 08:54 Dose: 2 tab Admin: 03/16/17 23:28 Dose: 2 tab Admin: 03/16/17 11:58 Dose: 2 tab Invokana 300 Mg 1 each PO DAILY [facility] Last Admin: 03/17/17 09:31 Dose: Admin: 03/16/17 08:19 Dose: 1 each Admin: 03/15/17 16:54 Dose: 1 each Phenol/Menthol (Chloraseptic Throat [place]) 1 ml MUCMEM Q2H PRN PRN Reason: Pain Sodium Chloride (Saline Flush) 10 ml FLUSH ASDIRECTED PRN PRN Reason: Keep Vein Open Sodium Chloride (Saline Flush) 2.5 ml FLUSH ASDIRECTED PRN PRN Reason: Keep Vein Open - Plan Plan (Free Text/Narrative):: -Acute blood loss anemia from wound hematoma: The bleeding appears to have stopped this morning. CT yesterday showed no evidence of intra-abdominal bleeding or a large hematoma. I debated taking him to the OR this morning but since the bleeding has stopped I will not. I will continue to monitor the wound closely. This is most likely from a small skin or muscle vessel. Continue to monitor hemoglobin q 6. If stable throughout the day will discontinue that. Continue overton to closely monitor UOP. -Replace magnesium with po mag. Stop oral phos since that has significantly improved. -NPO except ice chips and sips with meds until next hemoglobin. If stable can resume clears. -Pain: IV dilaudid prn, scheduled flexeril, po percocet -Hold BP meds for now. -Renal: BMP stable -No signs of infection
[2017-03-18] MEDS: Acetaminophen/oxyCODONE 325-5 MG Tab PO PRN ×4 (00:29→19:53)
[2017-03-18] MEDS: Cyclobenzaprine 10 MG Tab PO SCH ×3 (05:54→21:16)
[2017-03-18] MEDS: Insulin Aspart 100 Units/ML 3 ML Pen SUBCUT SCH ×2 (05:55→18:29)
[2017-03-18 06:27] LABS: CHLORIDE,CL 109 mmol/L (98-110); SODIUM,NA 142 mmol/L (136-146)
--- NOTE | 2017-03-18 09:06 | PCM.SURGPN ---
- General Info Date of Service: 03/18/17 POD#: 4 Post-Op Diagnosis: Diverticulitis Functional Status: Reports: Pain Controlled, Other (Pain well controlled. No chest pain or shortness of breath. Patient feels weak but denies lightheadedness /dizziness. Patient ) - Review of Systems General: Reports: [place] HEENT: Reports: No Symptoms Pulmonary: Reports: No Symptoms Cardiovascular: Reports: No Symptoms Gastrointestinal: Reports: No Symptoms. Denies: Flatus - Patient Data Vitals - Most Recent: Last Vital Signs Temp 36.6 C 03/18/17 04:00 Pulse 100 03/15/17 15:11 Resp 14 03/18/17 07:00 BP 111/72 03/18/17 07:00 Pulse Ox 97 03/18/17 07:00 Weight - Most Recent: 88.4 kg I&O - Last 24 Hours: Intake & Output 03/17/17 03/18/17 03/18/17 22:59 06:59 14:59 Intake Total 2200 300 Output Total 1250 950 Balance 950 -650 Lab Results Last 24 Hrs: Laboratory Results - last 24 hr 03/17/17 03/17/17 03/17/17 Range/Units 12:32 17:28 18:06 WBC (4.0-11.0) K/uL RBC (4.50-5.90) M/uL Hgb 9.3 L (13.0-17.0) g/dL Hct 28.4 L (38.0-50.0) % MCV (80.0-98.0) fL MCH (27.0-32.0) pg MCHC (31.0-37.0) g/dL RDW Std Deviation (28.0-62.0) fl RDW Coeff of Rajendra (11.0-15.0) % Plt Count (150-400) K/uL MPV (7.40-12.00) fL Neut % (Auto) (48.0-80.0) % Lymph % (Auto) (16.0-40.0) % [place] % (Auto) (0.0-15.0) % Eos % (Auto) (0.0-7.0) % Baso % (Auto) (0.0-1.5) % Neut # (Auto) (1.4-5.7) K/uL Lymph # (Auto) (0.6-2.4) K/uL [place] # (Auto) (0.0-0.8) K/uL Eos # (Auto) (0.0-0.7) K/uL Baso # (Auto) (0.0-0.1) K/uL Nucleated RBC % /100WBC Nucleated RBCs # K/uL Sodium (136-146) mmol/L Potassium (3.5-5.1) mmol/L Chloride (98-110) mmol/L Carbon Dioxide (21-31) mmol/L BUN (6.0-23.0) mg/dL Creatinine (0.6-1.5) mg/dL Est Cr Clr Drug Dosing mL/min Estimated GFR (MDRD) ml/min Glucose (60-110) mg/dL POC Glucose 56 L 81 (60-110) mg/dL Calcium (8.8-10.8) mg/dL Phosphorus (2.4-4.7) mg/dL Magnesium (1.5-2.3) mEq/L 03/18/17 03/18/17 03/18/17 Range/Units 00:01 05:50 05:51 WBC 5.64 (4.0-11.0) K/uL RBC 2.66 L (4.50-5.90) M/uL Hgb 8.4 L (13.0-17.0) g/dL Hct 25.8 L (38.0-50.0) % MCV 97.0 (80.0-98.0) fL MCH 31.6 (27.0-32.0) pg MCHC 32.6 (31.0-37.0) g/dL RDW Std Deviation 48.2 (28.0-62.0) fl RDW Coeff of Rajendra 14 (11.0-15.0) % Plt Count 226 (150-400) K/uL MPV 9.60 (7.40-12.00) fL Neut % (Auto) 67.5 (48.0-80.0) % Lymph % (Auto) 18.8 (16.0-40.0) % [place] % (Auto) 9.4 (0.0-15.0) % Eos % (Auto) 3.9 (0.0-7.0) % Baso % (Auto) 0.4 (0.0-1.5) % Neut # (Auto) 3.8 (1.4-5.7) K/uL Lymph # (Auto) 1.1 (0.6-2.4) K/uL [place] # (Auto) 0.5 (0.0-0.8) K/uL Eos # (Auto) 0.2 (0.0-0.7) K/uL Baso # (Auto) 0.0 (0.0-0.1) K/uL Nucleated RBC % 0.0 /100WBC Nucleated RBCs # 0 K/uL Sodium (136-146) mmol/L Potassium (3.5-5.1) mmol/L Chloride (98-110) mmol/L Carbon Dioxide (21-31) mmol/L BUN (6.0-23.0) mg/dL Creatinine (0.6-1.5) mg/dL Est Cr Clr Drug Dosing mL/min Estimated GFR (MDRD) ml/min Glucose (60-110) mg/dL POC Glucose 75 73 (60-110) mg/dL Calcium (8.8-10.8) mg/dL Phosphorus (2.4-4.7) mg/dL Magnesium (1.5-2.3) mEq/L 03/18/17 Range/Units 05:51 WBC (4.0-11.0) K/uL RBC (4.50-5.90) M/uL Hgb (13.0-17.0) g/dL Hct (38.0-50.0) % MCV (80.0-98.0) fL MCH (27.0-32.0) pg MCHC (31.0-37.0) g/dL RDW Std Deviation (28.0-62.0) fl RDW Coeff of Rajendra (11.0-15.0) % Plt Count (150-400) K/uL MPV (7.40-12.00) fL Neut % (Auto) (48.0-80.0) % Lymph % (Auto) (16.0-40.0) % [place] % (Auto) (0.0-15.0) % Eos % (Auto) (0.0-7.0) % Baso % (Auto) (0.0-1.5) % Neut # (Auto) (1.4-5.7) K/uL Lymph # (Auto) (0.6-2.4) K/uL [place] # (Auto) (0.0-0.8) K/uL Eos # (Auto) (0.0-0.7) K/uL Baso # (Auto) (0.0-0.1) K/uL Nucleated RBC % /100WBC Nucleated RBCs # K/uL Sodium 142 (136-146) mmol/L Potassium 3.8 (3.5-5.1) mmol/L Chloride 109 (98-110) mmol/L Carbon Dioxide 25 (21-31) mmol/L BUN 13 (6.0-23.0) mg/dL Creatinine 0.8 (0.6-1.5) mg/dL Est Cr Clr Drug Dosing 94.63 mL/min Estimated GFR (MDRD) > 60.0 ml/min Glucose 77 (60-110) mg/dL POC Glucose (60-110) mg/dL Calcium 8.1 L (8.8-10.8) mg/dL Phosphorus 3.0 (2.4-4.7) mg/dL Magnesium 1.4 L (1.5-2.3) mEq/L Med Orders - Current: Current Medications Amlodipine Besylate (Norvasc) 10 mg PO DAILY [facility] Last Admin: 03/17/17 09:30 Dose: Not Given Cyclobenzaprine HCl (Flexeril) 10 mg PO TID [facility] Last Admin: 03/18/17 05:54 Dose: 10 mg Diphenhydramine HCl (Benadryl) 25 mg IVPUSH Q4H PRN PRN Reason: Itching HCTZ/Losartan Potassium (Hyzaar 50-12.5 Mg) 1 tab PO DAILY [facility] Last Admin: 03/17/17 08:40 Dose: Not Given Hydromorphone HCl (Dilaudid) 1 mg IVPUSH Q2H PRN PRN Reason: Abdominal Pain Sodium Chloride (Normal Saline) 1,000 mls @ 50 mls/hr IV ASDIRECTED [facility] Last Admin: 03/16/17 10:16 Dose: 50 mls/hr Sodium Chloride (Normal Saline) 1,000 mls @ 100 mls/hr IV ASDIRECTED [facility] Last Admin: 03/17/17 00:11 Dose: 100 mls/hr Pantoprazole Sodium 40 mg/ (Sodium Chloride) 10 mls @ 300 mls/hr IVPUSH DAILY [facility] Insulin Aspart (Novolog) 0 unit SUBCUT Q12H [facility] PRN Reason: Protocol Last Admin: 03/18/17 05:55 Dose: Not Given Magnesium Chloride (Mag-64) 64 mg PO DAILY [facility] Last Admin: 03/17/17 09:30 Dose: Not Given Magnesium Chloride (Mag-64) 64 mg PO BID [facility] Metformin HCl (Glucophage Xr) 500 mg PO BIDMEALS [facility] Last Admin: 03/17/17 18:26 Dose: Not Given Metoprolol Tartrate (Lopressor) 5 mg IVPUSH Q4H PRN PRN Reason: Other Last Admin: 03/15/17 15:11 Dose: 5 mg Ondansetron HCl (Zofran) 4 mg IVPUSH Q6H PRN PRN Reason: Nausea/Vomiting Oxycodone/Acetaminophen (Percocet 325-5 Mg) 2 tab PO Q4H PRN PRN Reason: Abdominal Pain Last Admin: 03/18/17 00:29 Dose: 2 tab Invokana 300 Mg 1 each PO DAILY [facility] Last Admin: 03/17/17 09:31 Dose: Not Given Phenol/Menthol (Chloraseptic Throat Mathis) 1 ml MUCMEM Q2H PRN PRN Reason: Pain Sodium Chloride (Saline Flush) 10 ml FLUSH ASDIRECTED PRN PRN Reason: Keep Vein Open Sodium Chloride (Saline Flush) 2.5 ml FLUSH ASDIRECTED PRN PRN Reason: Keep Vein Open Discontinued Medications Bupivacaine HCl (Sensorcaine-Mpf 0.5%) Confirm Administered Dose 10 ml .ROUTE .STK-MED ONE Stop: 03/14/17 07:35 Bupivacaine HCl (Marcaine 0.5%) Confirm Administered Dose 120 ml .ROUTE .STK- MED ONE Stop: 03/14/17 07:36 Cefazolin Sodium (Ancef) Confirm Administered Dose 1 gm .ROUTE .STK-MED ONE Stop: 03/14/17 07:34 Diazepam (Valium) 2.5 mg IVPUSH Q2H PRN PRN Reason: Spasms Last Admin: 03/15/17 06:51 Dose: 2.5 mg Enoxaparin Sodium (Lovenox) 40 mg SUBCUT DAILY [facility] Last Admin: 03/15/17 09:10 Dose: 40 mg Fentanyl (Sublimaze) Confirm Administered Dose 400 mcg .ROUTE .STK-MED ONE Stop: 03/14/17 07:28 Fentanyl (Sublimaze) 50 mcg IVPUSH Q5M PRN PRN Reason: Pain (severe 7-10) Stop: 03/15/17 08:52 Last Admin: 03/14/17 12:59 Dose: 50 mcg Glycopyrrolate () Confirm Administered Dose 1 mg .ROUTE .STK-MED ONE Stop: 03/14/17 07:30 Hydromorphone HCl (Dilaudid) Confirm Administered Dose 2 mg .ROUTE .STK-MED ONE Stop: 03/14/17 08:29 Hydromorphone HCl (Dilaudid) 0 mg IVPUSH ONETIME ONE Stop: 03/14/17 08:53 Last Admin: 03/14/17 12:12 Dose: 1 mg Hydromorphone HCl (Dilaudid [employer] 6 Mg In Ns 30 Ml) 6 mg IV ASDIRECTED PRN; Protocol PRN Reason: Pain Last Admin: 03/15/17 04:22 Dose: 6 mg Hydromorphone HCl (Dilaudid) Confirm Administered Dose 2 mg .ROUTE .STK-MED ONE Stop: 03/14/17 11:48 Last Admin: 03/14/17 15:00 Dose: Not Given Lactated Ringer's (Ringers, Lactated) 1,000 mls @ 125 mls/hr IV ASDIRECTED [facility] Last Admin: 03/14/17 07:15 Dose: 125 mls/hr Meropenem 1 gm/ Sodium (Chloride) 100 mls @ 200 mls/hr IV ONETIME ONE Stop: 03/13/17 08:33 Last Admin: 03/14/17 15:38 Dose: Not Given Piperacillin Sod/Tazobactam (Sod 3.375 gm/ Sodium Chloride) 50 mls @ 100 mls/ hr IV ONETIME ONE Stop: 03/13/17 08:37 Last Admin: 03/14/17 08:02 Dose: 100 mls/hr Bupivacaine HCl/Epinephrine Bitart (Sensorc Mpf 0.25%-Epi [id number]) Confirm Administered Dose 120 mls @ as directed .ROUTE .STK-MED ONE Stop: 03/14/17 07:35 Lactated Ringer's (Ringers, Lactated) 1,000 mls @ 1,000 mls/hr IV .BOLUS ONE Stop: 03/14/17 12:38 Last Admin: 03/14/17 15:00 Dose: Not Given Sodium Chloride (Normal Saline) 1,000 mls @ 125 mls/hr IV ASDIRECTED [facility] Last Admin: 03/15/17 07:31 Dose: 125 mls/hr Sodium Chloride (Normal Saline) 1,000 mls @ 1,000 mls/hr IV .Bolus ONE Stop: 03/14/17 14:07 Last Admin: 03/14/17 15:03 Dose: Not Given Sodium Chloride (Normal Saline) 500 mls @ 500 mls/hr IV .BOLUS [facility] Last Admin: 03/14/17 15:47 Dose: 500 mls/hr Magnesium Sulfate 4 gm/ Premix 100 mls @ 50 mls/hr IV ONETIME ONE Stop: 03/15/17 08:59 Last Admin: 03/15/17 07:43 Dose: 50 mls/hr Magnesium Sulfate 4 gm/ Premix 100 mls @ 50 mls/hr IV ONETIME ONE Stop: 03/16/17 09:59 Last Admin: 03/16/17 08:13 Dose: 50 mls/hr Sodium Chloride (Normal Saline) 500 mls @ 500 mls/hr IV .BOLUS [facility] Last Admin: 03/16/17 08:10 Dose: 500 mls/hr Insulin Aspart (Novolog) 0 unit SUBCUT ACBREAKFASTANDBED [facility] PRN Reason: Protocol Ketorolac Tromethamine (Toradol) 15 mg IVPUSH Q6H [facility] Stop: 03/20/17 07:04 Last Admin: 03/16/17 06:34 Dose: 15 mg Lidocaine (Xylocaine-Mpf 2%) Confirm Administered Dose 10 ml .ROUTE .STK-MED ONE Stop: 03/14/17 07:28 Midazolam HCl (Versed 1 Mg/Ml) Confirm Administered Dose 2 mg .ROUTE .STK-MED ONE Stop: 03/14/17 07:28 Neostigmine Methylsulfate (Neostigmine) Confirm Administered Dose 5 mg .ROUTE .STK-MED ONE Stop: 03/14/17 07:30 Ondansetron HCl (Zofran) Confirm Administered Dose 8 mg .ROUTE .STK-MED ONE Stop: 03/14/17 07:30 Propofol (Diprivan 20 Ml) Confirm Administered Dose 400 mg .ROUTE .STK-MED ONE Stop: 03/14/17 07:28 Propofol (Diprivan 20 Ml) Confirm Administered Dose 200 mg .ROUTE .STK-MED ONE Stop: 03/14/17 09:13 Rocuronium [facility] (Zemuron) Confirm Administered Dose 100 mg .ROUTE .STK-MED ONE Stop: 03/14/17 07:30 Sodium Phosphate (Neutra-Phos) 250 mg PO QID [facility] Last Admin: 03/17/17 08:13 Dose: Not Given - Exam Wound/Incisions: Other (ecchymosis along the lower abdomen ) General: Alert, Oriented, Cooperative HEENT: Pupils Equal, Pupils Reactive, Mucous Membr. Moist/[place] Lungs: Clear to Auscultation, Normal Respiratory Effort Cardiovascular: Regular Rate, Regular Rhythm GI/Abdominal Exam: Soft, No Distention, Tender (along left flank) Extremities: Normal Inspection Skin: Warm, Dry, Intact Neurological: No New Focal Deficit - Problem List & Annotations (1) Diverticulitis SNOMED Code(s): 690528233 Code(s): K57.92 - DVTRCLI OF INTEST, PART UNSP, W/O PERF OR ABSCESS W/O BLEED Status: Acute Current Visit: No Qualifiers: (2) Postoperative wound hematoma SNOMED Code(s): 140505774 Code(s): ZYV8721 - Status: Acute Current Visit: Yes (3) Hypomagnesemia SNOMED Code(s): 668243924 Code(s): E83.42 - HYPOMAGNESEMIA Status: Acute Current Visit: Yes (4) Hypophosphatemia SNOMED Code(s): 1041456 Code(s): E83.39 - OTHER DISORDERS OF PHOSPHORUS METABOLISM Status: Acute Current Visit: Yes - Problem List Review Problem List Initiated/Reviewed/Updated: Yes - My Orders Last 24 Hours: Active Orders 24 hr Category Date Time Status Transfer Patient (Change bed) [ADT] Routine ADT 03/18/17 08:36 Ordered Remove Ordonez Catheter [Urinary Catheter Removal] [RC] Care 03/18/17 08:24 Active Per Unit Routine Telemetry Monitoring [Cardiac Monitoring] [RC] . Care 03/18/17 08:36 Active DIRECTED Clear Liquid Diet [DIET] Diet 03/17/17 Dinner Active BASIC METABOLIC PANEL,BMP [CHEM] AM Lab 03/19/17 05:11 Ordered CBC WITH AUTO DIFF [HEME] AM Lab 03/19/17 05:11 Ordered MAGNESIUM [CHEM] AM Lab 03/19/17 05:11 Ordered PHOSPHORUS [CHEM] AM Lab 03/19/17 05:11 Ordered Magnesium Chloride [Mag-64] Med 03/18/17 08:30 Active 64 mg PO BID Pantoprazole [ProTONIX IV] 40 mg Med 03/18/17 09:00 Active Sodium Chloride 0.9% [Normal Saline] 10 ml IVPUSH DAILY Medication Orders Amlodipine Besylate (Norvasc) 10 mg PO DAILY [facility] Last Admin: 03/17/17 09:30 Dose: Not Given Admin: 03/16/17 08:18 Dose: Not Given Admin: 03/15/17 15:30 Dose: 10 mg Cyclobenzaprine HCl (Flexeril) 10 mg PO TID [facility] Last Admin: 03/18/17 05:54 Dose: 10 mg Admin: 03/17/17 22:25 Dose: 10 mg Admin: 03/17/17 13:58 Dose: 10 mg Admin: 03/17/17 08:40 Dose: 10 mg Admin: 03/16/17 22:09 Dose: 10 mg Admin: 03/16/17 15:48 Dose: 10 mg Admin: 03/16/17 05:49 Dose: 10 mg Admin: 03/15/17 21:14 Dose: 10 mg Admin: 03/15/17 13:02 Dose: 10 mg Admin: 03/15/17 07:43 Dose: 10 mg Diphenhydramine HCl (Benadryl) 25 mg IVPUSH Q4H PRN PRN Reason: Itching HCTZ/Losartan Potassium (Hyzaar 50-12.5 Mg) 1 tab PO DAILY [facility] Last Admin: 03/17/17 08:40 Dose: Not Given Admin: 03/16/17 08:18 Dose: Not Given Admin: 03/15/17 15:30 Dose: 1 tab Hydromorphone HCl (Dilaudid) 1 mg IVPUSH Q2H PRN PRN Reason: Abdominal Pain Sodium Chloride (Normal Saline) 1,000 mls @ 50 mls/hr IV ASDIRECTED [facility] Last Admin: 03/16/17 10:16 Dose: 50 mls/hr Sodium Chloride (Normal Saline) 1,000 mls @ 100 mls/hr IV ASDIRECTED [facility] Last Admin: 03/17/17 00:11 Dose: 100 mls/hr Pantoprazole Sodium 40 mg/ (Sodium Chloride) 10 mls @ 300 mls/hr IVPUSH DAILY [facility] Insulin Aspart (Novolog) 0 unit SUBCUT Q12H [facility] PRN Reason: Protocol Last Admin: 03/18/17 05:55 Dose: Not Given Admin: 03/17/17 18:26 Dose: Not Given Admin: 03/17/17 06:23 Dose: Not Given Admin: 03/16/17 18:21 Dose: Not Given Admin: 03/16/17 07:00 Dose: Not Given Admin: 03/15/17 18:18 Dose: Not Given Admin: 03/15/17 06:39 Dose: Not Given Magnesium Chloride (Mag-64) 64 mg PO DAILY [facility] Last Admin: 03/17/17 09:30 Dose: Admin: 03/17/17 08:40 Dose: 64 mg Magnesium Chloride (Mag-64) 64 mg PO BID [facility] Metformin HCl (Glucophage Xr) 500 mg PO BIDMEALS [facility] Last Admin: 03/17/17 18:26 Dose: Admin: 03/17/17 08:40 Dose: Admin: 03/16/17 17:01 Dose: Admin: 03/16/17 08:15 Dose: 500 mg Admin: 03/15/17 18:17 Dose: Not Given Admin: 03/15/17 15:30 Dose: 500 mg Metoprolol Tartrate (Lopressor) 5 mg IVPUSH Q4H PRN PRN Reason: Other Last Admin: 03/15/17 15:11 Dose: 5 mg Ondansetron HCl (Zofran) 4 mg IVPUSH Q6H PRN PRN Reason: Nausea/Vomiting Oxycodone/Acetaminophen (Percocet 325-5 Mg) 2 tab PO Q4H PRN PRN Reason: Abdominal Pain Last Admin: 03/18/17 00:29 Dose: 2 tab Admin: 03/17/17 15:25 Dose: 2 tab Admin: 03/17/17 08:54 Dose: 2 tab Admin: 03/16/17 23:28 Dose: 2 tab Admin: 03/16/17 11:58 Dose: 2 tab Invokana 300 Mg 1 each PO DAILY [facility] Last Admin: 03/17/17 09:31 Dose: Admin: 03/16/17 08:19 Dose: 1 each Admin: 03/15/17 16:54 Dose: 1 each Phenol/Menthol (Chloraseptic Throat Mathis) 1 ml MUCMEM Q2H PRN PRN Reason: Pain Sodium Chloride (Saline Flush) 10 ml FLUSH ASDIRECTED PRN PRN Reason: Keep Vein Open Sodium Chloride (Saline Flush) 2.5 ml FLUSH ASDIRECTED PRN PRN Reason: Keep Vein Open - Plan Plan (Free Text/Narrative):: -Neuro: PRN Dilaudid and [place] -Cardiovascular: BP stable. HR is 90-100. Hold BP meds for today -Pulmonary: IS use -GI: Continue clear liquid diet. PPI for GI px. -Renal: Ordonez out. BUN/Cr stable. UOP good. -ID: No signs of infection and WBC within normal limits -Heme: No evidence of ongoing bleeding. Hgb 8.3 from 9. VSS and asymptomatic with no history of heart issues. No transfusion. Will continue to monitor. -PX: No heparin. SCDs and out of bed with walking today.
[2017-03-18] MEDS: metFORMIN 500 MG Tab.ER PO SCH ×2 (09:08→17:12)
[2017-03-18] MEDS: Hydrochlorothiazide/Losartan 12.5-50 mg Tab PO SCH (09:08)
[2017-03-18] MEDS: Magnesium Chloride 64 MG Tab.ER PO SCH ×4 (09:08→21:15)
[2017-03-18] MEDS: amLODIPine 5 MG Tab PO SCH (09:09)
[2017-03-18] MEDS: INVOKANA 300 MG PO SCH (09:09)
[2017-03-18] MEDS: Pantoprazole 40 MG in Sodium Chloride 0.9% 10 ML IVPUSH SCH (09:18)
[2017-03-18] MEDS ORDERED: Glycerin Pediatric 1.2 GM Supp RECTAL ONE (21:10)
[2017-03-18] MEDS ORDERED: Dextrose 5%-0.9% NaCl with KCl 1,000 ML IV SCH (23:45)
--- NOTE | 2017-03-18 23:48 | PCM.SN ---
- Free Text/Narrative Note: Patient was c/o increased abdominal distension and a feeling like he had to pass gas. He was also having crampy abdominal pain. An xr of the abdomen was obtained that showed gas filled loops of large and small intestine. There is no air in the colon past the anastamosis. He most likely has swelling of the area making it difficult for gas/stool to pass through. I will make him npo for now and start maintenance fluids. He can have ice chips and po meds for now since he denies nausea or vomiting. If he becomes nauseated he should be made strict npo. If he vomits an NG should be placed. Will continue to monitor for now.
[2017-03-19] MEDS: Acetaminophen/oxyCODONE 325-5 MG Tab PO PRN ×2 (06:12→19:31)
[2017-03-19] MEDS: Cyclobenzaprine 10 MG Tab PO SCH (06:12)
[2017-03-19] MEDS: Insulin Aspart 100 Units/ML 3 ML Pen SUBCUT SCH (06:14)
[2017-03-19 06:41] LABS: CHLORIDE,CL 112 mmol/L (98-110); SODIUM,NA 143 mmol/L (136-146)
[2017-03-19] MEDS ORDERED: Magnesium Sulfate/Water 4 GM in Premix Bag 1 BAG IV ONE (07:26)
--- NOTE | 2017-03-19 07:45 | PCM.SURGPN ---
- General Info Date of Service: 03/19/17 Date of Surgery/Procedure: 03/14/17 POD#: 5 Post-Op Diagnosis: Diverticulosis Functional Status: Reports: Other (Patient was feeling more distended last night and having crampy pain. XR showed gaseous distension all the way to the anastamosis. He had 2 BM this morning and is feeling much better. ) - Review of Systems General: Reports: No Symptoms Pulmonary: Reports: No Symptoms Cardiovascular: Reports: No Symptoms Gastrointestinal: Reports: No Symptoms - Patient Data Vitals - Most Recent: Last Vital Signs Temp 36.6 C 03/19/17 04:00 Pulse 131 H 03/19/17 04:00 Resp 19 03/19/17 04:00 BP 158/92 H 03/19/17 04:00 Pulse Ox 94 L 03/19/17 04:00 Weight - Most Recent: 88.4 kg I&O - Last 24 Hours: Intake & Output 03/18/17 03/19/17 03/19/17 22:59 06:59 14:59 Intake Total 1000 683 Output Total 900 800 Balance 100 -117 Lab Results Last 24 Hrs: Laboratory Results - last 24 hr 03/18/17 03/19/17 03/19/17 Range/Units 18:03 00:52 05:43 WBC 9.71 (4.0-11.0) K/uL RBC 3.08 L (4.50-5.90) M/uL Hgb 9.7 L (13.0-17.0) g/dL Hct 30.2 L (38.0-50.0) % MCV 98.1 H (80.0-98.0) fL MCH 31.5 (27.0-32.0) pg MCHC 32.1 (31.0-37.0) g/dL RDW Std Deviation 47.8 (28.0-62.0) fl RDW Coeff of Rajendra 13 (11.0-15.0) % Plt Count 333 (150-400) K/uL MPV 9.80 (7.40-12.00) fL Neut % (Auto) 86.3 H (48.0-80.0) % Lymph % (Auto) 8.2 L (16.0-40.0) % [place] % (Auto) 5.1 (0.0-15.0) % Eos % (Auto) 0.1 (0.0-7.0) % Baso % (Auto) 0.3 (0.0-1.5) % Neut # (Auto) 8.4 H (1.4-5.7) K/uL Lymph # (Auto) 0.8 (0.6-2.4) K/uL [place] # (Auto) 0.5 (0.0-0.8) K/uL Eos # (Auto) 0.0 (0.0-0.7) K/uL Baso # (Auto) 0.0 (0.0-0.1) K/uL Nucleated RBC % 0.0 /100WBC Nucleated RBCs # 0 K/uL Sodium (136-146) mmol/L Potassium (3.5-5.1) mmol/L Chloride (98-110) mmol/L Carbon Dioxide (21-31) mmol/L BUN (6.0-23.0) mg/dL Creatinine (0.6-1.5) mg/dL Est Cr Clr Drug Dosing mL/min Estimated GFR (MDRD) ml/min Glucose (60-110) mg/dL POC Glucose 79 104 (60-110) mg/dL Calcium (8.8-10.8) mg/dL Phosphorus (2.4-4.7) mg/dL Magnesium (1.5-2.3) mEq/L 03/19/17 03/19/17 Range/Units 05:43 06:11 WBC (4.0-11.0) K/uL RBC (4.50-5.90) M/uL Hgb (13.0-17.0) g/dL Hct (38.0-50.0) % MCV (80.0-98.0) fL MCH (27.0-32.0) pg MCHC (31.0-37.0) g/dL RDW Std Deviation (28.0-62.0) fl RDW Coeff of Rajendra (11.0-15.0) % Plt Count (150-400) K/uL MPV (7.40-12.00) fL Neut % (Auto) (48.0-80.0) % Lymph % (Auto) (16.0-40.0) % [place] % (Auto) (0.0-15.0) % Eos % (Auto) (0.0-7.0) % Baso % (Auto) (0.0-1.5) % Neut # (Auto) (1.4-5.7) K/uL Lymph # (Auto) (0.6-2.4) K/uL [place] # (Auto) (0.0-0.8) K/uL Eos # (Auto) (0.0-0.7) K/uL Baso # (Auto) (0.0-0.1) K/uL Nucleated RBC % /100WBC Nucleated RBCs # K/uL Sodium 143 (136-146) mmol/L Potassium 4.1 (3.5-5.1) mmol/L Chloride 112 H (98-110) mmol/L Carbon Dioxide 16 L (21-31) mmol/L BUN 12 (6.0-23.0) mg/dL Creatinine 0.9 (0.6-1.5) mg/dL Est Cr Clr Drug Dosing 84.11 mL/min Estimated GFR (MDRD) > 60.0 ml/min Glucose 165 H (60-110) mg/dL POC Glucose 129 H (60-110) mg/dL Calcium 8.9 (8.8-10.8) mg/dL Phosphorus 4.0 (2.4-4.7) mg/dL Magnesium 1.4 L (1.5-2.3) mEq/L Med Orders - Current: Current Medications Cyclobenzaprine HCl (Flexeril) 10 mg PO TID [facility] Last Admin: 03/19/17 06:12 Dose: 10 mg Diphenhydramine HCl (Benadryl) 25 mg IVPUSH Q4H PRN PRN Reason: Itching Hydromorphone HCl (Dilaudid) 1 mg IVPUSH Q2H PRN PRN Reason: Abdominal Pain Pantoprazole Sodium 40 mg/ (Sodium Chloride) 10 mls @ 300 mls/hr IVPUSH DAILY [facility] Last Admin: 03/18/17 09:18 Dose: 300 mls/hr Magnesium Sulfate 4 gm/ Premix 100 mls @ 50 mls/hr IV ONETIME ONE Stop: 03/19/17 09:25 Insulin Aspart (Novolog) 0 unit SUBCUT Q12H [facility] PRN Reason: Protocol Last Admin: 03/19/17 06:14 Dose: Not Given Metformin HCl (Glucophage Xr) 500 mg PO BIDMEALS [facility] Last Admin: 03/18/17 17:12 Dose: Not Given Metoprolol Tartrate (Lopressor) 5 mg IVPUSH Q4H PRN PRN Reason: Other Last Admin: 03/15/17 15:11 Dose: 5 mg Ondansetron HCl (Zofran) 4 mg IVPUSH Q6H PRN PRN Reason: Nausea/Vomiting Last Admin: 03/19/17 00:10 Dose: 4 mg Oxycodone/Acetaminophen (Percocet 325-5 Mg) 2 tab PO Q4H PRN PRN Reason: Abdominal Pain Last Admin: 03/19/17 06:12 Dose: 2 tab Invokana 300 Mg 1 each PO DAILY [facility] Last Admin: 03/18/17 09:09 Dose: Not Given Sodium Chloride (Saline Flush) 10 ml FLUSH ASDIRECTED PRN PRN Reason: Keep Vein Open Sodium Chloride (Saline Flush) 2.5 ml FLUSH ASDIRECTED PRN PRN Reason: Keep Vein Open Discontinued Medications Amlodipine Besylate (Norvasc) 10 mg PO DAILY [facility] Last Admin: 03/18/17 09:09 Dose: Not Given Bupivacaine HCl (Sensorcaine-Mpf 0.5%) Confirm Administered Dose 10 ml .ROUTE .STK-MED ONE Stop: 03/14/17 07:35 Bupivacaine HCl (Marcaine 0.5%) Confirm Administered Dose 120 ml .ROUTE .STK- MED ONE Stop: 03/14/17 07:36 Cefazolin Sodium (Ancef) Confirm Administered Dose 1 gm .ROUTE .STK-MED ONE Stop: 03/14/17 07:34 Diazepam (Valium) 2.5 mg IVPUSH Q2H PRN PRN Reason: Spasms Last Admin: 03/15/17 06:51 Dose: 2.5 mg Enoxaparin Sodium (Lovenox) 40 mg SUBCUT DAILY [facility] Last Admin: 03/15/17 09:10 Dose: 40 mg Fentanyl (Sublimaze) Confirm Administered Dose 400 mcg .ROUTE .STK-MED ONE Stop: 03/14/17 07:28 Fentanyl (Sublimaze) 50 mcg IVPUSH Q5M PRN PRN Reason: Pain (severe 7-10) Stop: 03/15/17 08:52 Last Admin: 03/14/17 12:59 Dose: 50 mcg Glycerin (Sani-Supp Pediatric) 1.5 gm RECTAL ONETIME ONE Stop: 03/18/17 21:11 Last Admin: 03/18/17 22:03 Dose: 1.2 gm Glycopyrrolate () Confirm Administered Dose 1 mg .ROUTE .STK-MED ONE Stop: 03/14/17 07:30 HCTZ/Losartan Potassium (Hyzaar 50-12.5 Mg) 1 tab PO DAILY [facility] Last Admin: 03/18/17 09:08 Dose: Not Given Hydromorphone HCl (Dilaudid) Confirm Administered Dose 2 mg .ROUTE .STK-MED ONE Stop: 03/14/17 08:29 Hydromorphone HCl (Dilaudid) 0 mg IVPUSH ONETIME ONE Stop: 03/14/17 08:53 Last Admin: 03/14/17 12:12 Dose: 1 mg Hydromorphone HCl (Dilaudid [place] 6 Mg In Ns 30 Ml) 6 mg IV ASDIRECTED PRN; Protocol PRN Reason: Pain Last Admin: 03/15/17 04:22 Dose: 6 mg Hydromorphone HCl (Dilaudid) Confirm Administered Dose 2 mg .ROUTE .STK-MED ONE Stop: 03/14/17 11:48 Last Admin: 03/14/17 15:00 Dose: Not Given Lactated Ringer's (Ringers, Lactated) 1,000 mls @ 125 mls/hr IV ASDIRECTED [facility] Last Admin: 03/14/17 07:15 Dose: 125 mls/hr Meropenem 1 gm/ Sodium (Chloride) 100 mls @ 200 mls/hr IV ONETIME ONE Stop: 03/13/17 08:33 Last Admin: 03/14/17 15:38 Dose: Not Given Piperacillin Sod/Tazobactam (Sod 3.375 gm/ Sodium Chloride) 50 mls @ 100 mls/ hr IV ONETIME ONE Stop: 03/13/17 08:37 Last Admin: 03/14/17 08:02 Dose: 100 mls/hr Bupivacaine HCl/Epinephrine Bitart (Sensorc Mpf 0.25%-Epi [id number]) Confirm Administered Dose 120 mls @ as directed .ROUTE .STK-MED ONE Stop: 03/14/17 07:35 Lactated Ringer's (Ringers, Lactated) 1,000 mls @ 1,000 mls/hr IV .BOLUS ONE Stop: 03/14/17 12:38 Last Admin: 03/14/17 15:00 Dose: Not Given Sodium Chloride (Normal Saline) 1,000 mls @ 125 mls/hr IV ASDIRECTED [facility] Last Admin: 03/15/17 07:31 Dose: 125 mls/hr Sodium Chloride (Normal Saline) 1,000 mls @ 1,000 mls/hr IV .Bolus ONE Stop: 03/14/17 14:07 Last Admin: 03/14/17 15:03 Dose: Not Given Sodium Chloride (Normal Saline) 500 mls @ 500 mls/hr IV .BOLUS [facility] Last Admin: 03/14/17 15:47 Dose: 500 mls/hr Magnesium Sulfate 4 gm/ Premix 100 mls @ 50 mls/hr IV ONETIME ONE Stop: 03/15/17 08:59 Last Admin: 03/15/17 07:43 Dose: 50 mls/hr Magnesium Sulfate 4 gm/ Premix 100 mls @ 50 mls/hr IV ONETIME ONE Stop: 03/16/17 09:59 Last Admin: 03/16/17 08:13 Dose: 50 mls/hr Sodium Chloride (Normal Saline) 500 mls @ 500 mls/hr IV .BOLUS [facility] Last Admin: 03/16/17 08:10 Dose: 500 mls/hr Sodium Chloride (Normal Saline) 1,000 mls @ 50 mls/hr IV ASDIRECTED [facility] Last Admin: 03/16/17 10:16 Dose: 50 mls/hr Sodium Chloride (Normal Saline) 1,000 mls @ 100 mls/hr IV ASDIRECTED [facility] Last Admin: 03/17/17 00:11 Dose: 100 mls/hr Potassium Chloride/Dextrose/Sod Cl (D5 Ns With 20 Meq Kcl) 1,000 mls @ 125 mls/ hr IV ASDIRECTED [facility] Last Admin: 03/19/17 00:14 Dose: 125 mls/hr Insulin Aspart (Novolog) 0 unit SUBCUT ACBREAKFASTANDBED [facility] PRN Reason: Protocol Ketorolac Tromethamine (Toradol) 15 mg IVPUSH Q6H [facility] Stop: 03/20/17 07:04 Last Admin: 03/16/17 06:34 Dose: 15 mg Lidocaine (Xylocaine-Mpf 2%) Confirm Administered Dose 10 ml .ROUTE .STK-MED ONE Stop: 03/14/17 07:28 Magnesium Chloride (Mag-64) 64 mg PO DAILY [facility] Last Admin: 03/18/17 09:09 Dose: Not Given Magnesium Chloride (Mag-64) 64 mg PO BID [facility] Last Admin: 03/18/17 21:15 Dose: 64 mg Midazolam HCl (Versed 1 Mg/Ml) Confirm Administered Dose 2 mg .ROUTE .STK-MED ONE Stop: 03/14/17 07:28 Neostigmine Methylsulfate (Neostigmine) Confirm Administered Dose 5 mg .ROUTE .STK-MED ONE Stop: 03/14/17 07:30 Ondansetron HCl (Zofran) Confirm Administered Dose 8 mg .ROUTE .STK-MED ONE Stop: 03/14/17 07:30 Phenol/Menthol (Chloraseptic Throat [place]) 1 ml MUCMEM Q2H PRN PRN Reason: Pain Propofol (Diprivan 20 Ml) Confirm Administered Dose 400 mg .ROUTE .STK-MED ONE Stop: 03/14/17 07:28 Propofol (Diprivan 20 Ml) Confirm Administered Dose 200 mg .ROUTE .STK-MED ONE Stop: 03/14/17 09:13 Rocuronium [place] (Zemuron) Confirm Administered Dose 100 mg .ROUTE .STK-MED ONE Stop: 03/14/17 07:30 Sodium Phosphate (Neutra-Phos) 250 mg PO QID [facility] Last Admin: 03/17/17 08:13 Dose: Not Given - Exam Wound/Incisions: Healing Well, Dressing Dry and Intact, No Drainage General: Alert, Oriented HEENT: Pupils Equal, Pupils Reactive Lungs: Clear to Auscultation, Normal Respiratory Effort Cardiovascular: Regular Rate, Regular Rhythm GI/Abdominal Exam: Normal Bowel Sounds, Soft, Non-Tender Skin: Warm, Dry, Intact - Problem List & Annotations (1) Diverticulitis SNOMED Code(s): 877655356 Code(s): K57.92 - DVTRCLI OF INTEST, PART UNSP, W/O PERF OR ABSCESS W/O BLEED Status: Acute Current Visit: No Qualifiers: (2) Postoperative wound hematoma SNOMED Code(s): 889520273 Code(s): QFI6664 - Status: Acute Current Visit: Yes (3) Hypomagnesemia SNOMED Code(s): 988428629 Code(s): E83.42 - HYPOMAGNESEMIA Status: Acute Current Visit: Yes (4) Hypophosphatemia SNOMED Code(s): 7838850 Code(s): E83.39 - OTHER DISORDERS OF PHOSPHORUS METABOLISM Status: Acute Current Visit: Yes - Problem List Review Problem List Initiated/Reviewed/Updated: Yes - My Orders Last 24 Hours: Active Orders 24 hr Category Date Time Status Transfer Patient (Change bed) [ADT] Routine ADT 03/18/17 08:36 Ordered Activity as Tolerated [RC] .Routine Care 03/18/17 09:12 Active Ambulate [RC] PER UNIT ROUTINE Care 03/18/17 09:13 Active Communication Order [RC] ROUTINE Care 03/18/17 09:11 Active Telemetry Monitoring [Cardiac Monitoring] [RC] Q8H Care 03/18/17 08:36 Active Full Liquid Diet [DIET] Diet 03/19/17 Lunch Ordered Abdomen 1V Upright [CR] Stat Exams 03/18/17 22:28 Taken MAGNESIUM [CHEM] Routine Lab 03/19/17 13:00 Ordered Magnesium Sulfate/Water [Magnesium Sulfate 4 GM in Med 03/19/17 07:26 Active Water 100 ML] 4 gm Premix Bag 1 bag IV ONETIME Pantoprazole [ProTONIX IV] 40 mg Med 03/18/17 09:00 Active Sodium Chloride 0.9% [Normal Saline] 10 ml IVPUSH DAILY Medication Orders Cyclobenzaprine HCl (Flexeril) 10 mg PO TID [facility] Last Admin: 03/19/17 06:12 Dose: 10 mg Admin: 03/18/17 21:16 Dose: 10 mg Admin: 03/18/17 14:19 Dose: 10 mg Admin: 03/18/17 05:54 Dose: 10 mg Admin: 03/17/17 22:25 Dose: 10 mg Admin: 03/17/17 13:58 Dose: 10 mg Admin: 03/17/17 08:40 Dose: 10 mg Admin: 03/16/17 22:09 Dose: 10 mg Admin: 03/16/17 15:48 Dose: 10 mg Admin: 03/16/17 05:49 Dose: 10 mg Admin: 03/15/17 21:14 Dose: 10 mg Admin: 03/15/17 13:02 Dose: 10 mg Admin: 03/15/17 07:43 Dose: 10 mg Diphenhydramine HCl (Benadryl) 25 mg IVPUSH Q4H PRN PRN Reason: Itching Hydromorphone HCl (Dilaudid) 1 mg IVPUSH Q2H PRN PRN Reason: Abdominal Pain Pantoprazole Sodium 40 mg/ (Sodium Chloride) 10 mls @ 300 mls/hr IVPUSH DAILY [facility] Last Admin: 03/18/17 09:18 Dose: 300 mls/hr Magnesium Sulfate 4 gm/ Premix 100 mls @ 50 mls/hr IV ONETIME ONE Stop: 03/19/17 09:25 Insulin Aspart (Novolog) 0 unit SUBCUT Q12H [facility] PRN Reason: Protocol Last Admin: 03/19/17 06:14 Dose: Not Given Admin: 03/18/17 18:29 Dose: Not Given Admin: 03/18/17 05:55 Dose: Not Given Admin: 03/17/17 18:26 Dose: Not Given Admin: 03/17/17 06:23 Dose: Not Given Admin: 03/16/17 18:21 Dose: Not Given Admin: 03/16/17 07:00 Dose: Not Given Admin: 03/15/17 18:18 Dose: Not Given Admin: 03/15/17 06:39 Dose: Not Given Metformin HCl (Glucophage Xr) 500 mg PO BIDMEALS [facility] Last Admin: 03/18/17 17:12 Dose: Admin: 03/18/17 09:08 Dose: Admin: 03/17/17 18:26 Dose: Admin: 03/17/17 08:40 Dose: Admin: 03/16/17 17:01 Dose: Admin: 03/16/17 08:15 Dose: 500 mg Admin: 03/15/17 18:17 Dose: Not Given Admin: 03/15/17 15:30 Dose: 500 mg Metoprolol Tartrate (Lopressor) 5 mg IVPUSH Q4H PRN PRN Reason: Other Last Admin: 03/15/17 15:11 Dose: 5 mg Ondansetron HCl (Zofran) 4 mg IVPUSH Q6H PRN PRN Reason: Nausea/Vomiting Last Admin: 03/19/17 00:10 Dose: 4 mg Oxycodone/Acetaminophen (Percocet 325-5 Mg) 2 tab PO Q4H PRN PRN Reason: Abdominal Pain Last Admin: 03/19/17 06:12 Dose: 2 tab Admin: 03/18/17 19:53 Dose: 2 tab Admin: 03/18/17 14:19 Dose: 2 tab Admin: 03/18/17 09:17 Dose: 2 tab Admin: 03/18/17 00:29 Dose: 2 tab Admin: 03/17/17 15:25 Dose: 2 tab Admin: 03/17/17 08:54 Dose: 2 tab Admin: 03/16/17 23:28 Dose: 2 tab Admin: 03/16/17 11:58 Dose: 2 tab Invokana 300 Mg 1 each PO DAILY [facility] Last Admin: 03/18/17 09:09 Dose: Admin: 03/17/17 09:31 Dose: Admin: 03/16/17 08:19 Dose: 1 each Admin: 03/15/17 16:54 Dose: 1 each Sodium Chloride (Saline Flush) 10 ml FLUSH ASDIRECTED PRN PRN Reason: Keep Vein Open Sodium Chloride (Saline Flush) 2.5 ml FLUSH ASDIRECTED PRN PRN Reason: Keep Vein Open - Assessment Assessment (Free Text/Narrative):: -Pain: [place] prn and IV dialaudid. Will stop scheduled flexeril. Cardiovascular: Stop telemetry. Hold BP meds for today Pulmonary: IS use GI: Advance diet to full liquids Renal: Stop MIVF. UOP adequate and BUN/Cr stable. ID: No signs of infection Heme: Hgb improving.
[2017-03-19] MEDS ORDERED: Cyclobenzaprine 10 MG Tab PO PRN (07:46)
[2017-03-19] MEDS: metFORMIN 500 MG Tab.ER PO SCH ×2 (08:38→16:33)
[2017-03-19] MEDS: Pantoprazole 40 MG in Sodium Chloride 0.9% 10 ML IVPUSH SCH (08:38)
[2017-03-19] MEDS: INVOKANA 300 MG PO SCH (08:47)
--- NOTE | 2017-03-19 18:20 | CR ---
EXAM DATE: 03/14/17 PATIENT'S AGE: 56 Patient: NICOLAS OWENS Facility: [place], [place] Site . Site : 1960 Study: XRay Abdomen [id number]/22/2017 11:27:22 PM Ordering Physician: Osmani Page Final Report: INDICATION: Abdominal distention TECHNIQUE: Abdomen 2 view. COMPARISON: None FINDINGS: Bowel: Gaseous distention of large and small bowel in the upper abdomen. Soft tissues: No sign of free air. No sign of soft tissue mass. No suspicious calcifications. Bones: Unremarkable for age. IMPRESSION: Gaseous distension of the large and small bowel in the upper abdomen. Dictated by Jacob Coronel MD @ 03/18/2017 11:31:27 PM Dictated by: Jacob Coronel MD @ 03/18/2017 23:31:44 (Electronic Signature) Report Signed by Proxy. VERONIQUE
[2017-03-20] MEDS: metFORMIN 500 MG Tab.ER PO SCH ×2 (09:08→16:31)
[2017-03-20] MEDS: INVOKANA 300 MG PO SCH (09:11)
[2017-03-20] MEDS: Acetaminophen/oxyCODONE 325-5 MG Tab PO PRN (10:46)
[2017-03-20 16:36] VITALS: BP 116/82
--- NOTE | 2017-03-21 07:36 | PCM.DCSUM1 ---
Discharge Summary - Hospital Course Free Text/Narrative:: Patient is a 56 yo gentleman who presented for a sigmoidectomy. He had multiple episodes of diverticulitis all at the sigmoid descending colon junction. His surgery went well with resection of the junction. The specimen contained large ticks impacted with stool. He had low UOP during the case. He was given many fluid boluses post op and his UOP improved. His Cr and BUN came back down to normal. He did well until POD #2 when he started to have some bloody drainage from the inferior part of his incision. His hgb drifted down from 11 to 8. The wound was packed with surgicel and multiple dressings were changed. A CT abdomen /pelvis was normal. Coags were normal. On POD # 3 the wound stopped bleeding. His hemoglobin normalized after that. He was slightly tachycardic during the entire stay other than when he was given his home BP meds. POD # 5 he was feeling abdomen distension and pain. Abdominal XR showed gas to the level of the anastamosis. Shortly after the xray was taken the patient had two bms and felt better. His diet was advanced to slowly to regular. He continues to pass gas and is stable. He was discharged home. - Discharge Data Discharge Date: 03/20/17 Discharge Disposition: Home, Self-Care 01 Condition: Good - Discharge Diagnosis/Problem(s) (1) Diverticulitis SNOMED Code(s): 533371763 ICD Code: K57.92 - DVTRCLI OF INTEST, PART UNSP, W/O PERF OR ABSCESS W/O BLEED Status: Acute Qualifiers: (2) Postoperative wound hematoma SNOMED Code(s): 094183837 ICD Code: ODU8452 - Status: Acute (3) Hypomagnesemia SNOMED Code(s): 570383747 ICD Code: E83.42 - HYPOMAGNESEMIA Status: Acute (4) Hypophosphatemia SNOMED Code(s): 6065196 ICD Code: E83.39 - OTHER DISORDERS OF PHOSPHORUS METABOLISM Status: Acute - Patient Summary/Data Operative Procedure(s) Performed: Open distal descending colon and proximal sigmoid colectomy with mobilization of the splenic flexure. - Patient Instructions Diet: Regular Diet as Tolerated, Drink 8-10+ Glasses/Day Activity: No Lifting Over 20 Pounds, Rest and Relax Today Driving: Do Not Drive Showering/Bathing: May Shower, No Tub Bathing/Swimming Wound/Incision Care: Keep Operative Site/Wound Site Clean and Dry Notify Provider of: Fever, Increased Pain, Swelling and Redness, Drainage, Nausea and/or Vomiting - Discharge Plan Prescriptions/Med Rec: Cyclobenzaprine [Flexeril] 10 mg PO TID PRN #30 tablet PRN Reason: Abdominal Pain Docusate Sodium/Sennosides [Senna Plus] 1 tab PO BID PRN #30 tablet PRN Reason: Constipation Polyethylene Glycol 3350 [Miralax] 17 gm PO DAILY 30 Days #1 container Home Medications: Home Meds Losartan/Hydrochlorothiazide [Losartan-HCTZ 100-12.5 MG] 1 tab PO DAILY [History] metFORMIN HCl [Metformin HCl] 500 mg PO BID 03/28/14 [History] Canagliflozin [Invokana] 300 mg PO DAILY 04/07/16 [History] amLODIPine [Norvasc] 10 mg PO DAILY 11/20/16 [History] Multivitamin [Multi-Vitamin Daily] 1 tab PO DAILY 03/09/17 [History] Cyclobenzaprine [Flexeril] 10 mg PO TID PRN #30 tablet 03/20/17 [Rx] Docusate Sodium/Sennosides [Senna Plus] 1 tab PO BID PRN #30 tablet 03/20/17 [Rx ] Polyethylene Glycol 3350 [Miralax] 17 gm PO DAILY 30 Days #1 container 03/20/17 [Rx] Patient Handouts: Docusate Sodium; Senna tablets or capsules, Open Colectomy, Care After, Cyclobenzaprine tablets, Acetaminophen; Oxycodone tablets, Polyethylene Glycol powder Referrals: Kaylee Keen MD [Physician] - 03/26/17 1:30 pm - General Info Date of Service: 03/20/17 Functional Status: Reports: Pain Controlled, Tolerating Diet, Ambulating, Urinating - Review of Systems General: Reports: No Symptoms Pulmonary: Reports: No Symptoms Cardiovascular: Reports: No Symptoms Gastrointestinal: Reports: No Symptoms - Patient Data Vitals - Most Recent: Last Vital Signs Temp 37.0 C 03/20/17 15:00 Pulse 116 H 03/20/17 15:00 Resp 19 03/20/17 15:00 BP 116/82 03/20/17 15:00 Pulse Ox 96 03/20/17 15:00 Weight - Most Recent: 88.4 kg I&O - Last 24 hours: Intake & Output 03/20/17 03/21/17 03/21/17 22:59 06:59 14:59 Intake Total 600 Output Total 830 Balance -230 Med Orders - Current: Current Medications Discontinued Medications Amlodipine Besylate (Norvasc) 10 mg PO DAILY [facility] Last Admin: 03/18/17 09:09 Dose: Not Given Bupivacaine HCl (Sensorcaine-Mpf 0.5%) Confirm Administered Dose 10 ml .ROUTE .STK-MED ONE Stop: 03/14/17 07:35 Bupivacaine HCl (Marcaine 0.5%) Confirm Administered Dose 120 ml .ROUTE .STK- MED ONE Stop: 03/14/17 07:36 Cefazolin Sodium (Ancef) Confirm Administered Dose 1 gm .ROUTE .STK-MED ONE Stop: 03/14/17 07:34 Cyclobenzaprine HCl (Flexeril) 10 mg PO TID [facility] Last Admin: 03/19/17 06:12 Dose: 10 mg Cyclobenzaprine HCl (Flexeril) 10 mg PO TID PRN PRN Reason: Muscle Spasm Last Admin: 03/19/17 16:37 Dose: 10 mg Diazepam (Valium) 2.5 mg IVPUSH Q2H PRN PRN Reason: Spasms Last Admin: 03/15/17 06:51 Dose: 2.5 mg Diphenhydramine HCl (Benadryl) 25 mg IVPUSH Q4H PRN PRN Reason: Itching Enoxaparin Sodium (Lovenox) 40 mg SUBCUT DAILY [facility] Last Admin: 03/15/17 09:10 Dose: 40 mg Fentanyl (Sublimaze) Confirm Administered Dose 400 mcg .ROUTE .STK-MED ONE Stop: 03/14/17 07:28 Fentanyl (Sublimaze) 50 mcg IVPUSH Q5M PRN PRN Reason: Pain (severe 7-10) Stop: 03/15/17 08:52 Last Admin: 03/14/17 12:59 Dose: 50 mcg Glycerin (Sani-Supp Pediatric) 1.5 gm RECTAL ONETIME ONE Stop: 03/18/17 21:11 Last Admin: 03/18/17 22:03 Dose: 1.2 gm Glycopyrrolate () Confirm Administered Dose 1 mg .ROUTE .STK-MED ONE Stop: 03/14/17 07:30 HCTZ/Losartan Potassium (Hyzaar 50-12.5 Mg) 1 tab PO DAILY [facility] Last Admin: 03/18/17 09:08 Dose: Not Given Hydromorphone HCl (Dilaudid) Confirm Administered Dose 2 mg .ROUTE .STK-MED ONE Stop: 03/14/17 08:29 Hydromorphone HCl (Dilaudid) 0 mg IVPUSH ONETIME ONE Stop: 03/14/17 08:53 Last Admin: 03/14/17 12:12 Dose: 1 mg Hydromorphone HCl (Dilaudid [employer] Program [employer]st 6 Mg In Ns 30 Ml) 6 mg IV ASDIRECTED PRN; Protocol PRN Reason: Pain Last Admin: 03/15/17 04:22 Dose: 6 mg Hydromorphone HCl (Dilaudid) Confirm Administered Dose 2 mg .ROUTE .STK-MED ONE Stop: 03/14/17 11:48 Last Admin: 03/14/17 15:00 Dose: Not Given Hydromorphone HCl (Dilaudid) 1 mg IVPUSH Q2H PRN PRN Reason: Abdominal Pain Lactated Ringer's (Ringers, Lactated) 1,000 mls @ 125 mls/hr IV ASDIRECTED [facility] Last Admin: 03/14/17 07:15 Dose: 125 mls/hr Meropenem 1 gm/ Sodium (Chloride) 100 mls @ 200 mls/hr IV ONETIME ONE Stop: 03/13/17 08:33 Last Admin: 03/14/17 15:38 Dose: Not Given Piperacillin Sod/Tazobactam (Sod 3.375 gm/ Sodium Chloride) 50 mls @ 100 mls/ hr IV ONETIME ONE Stop: 03/13/17 08:37 Last Admin: 03/14/17 08:02 Dose: 100 mls/hr Bupivacaine HCl/Epinephrine Bitart (Sensorc Mpf 0.25%-Epi [id number]) Confirm Administered Dose 120 mls @ as directed .ROUTE .STK-MED ONE Stop: 03/14/17 07:35 Lactated Ringer's (Ringers, Lactated) 1,000 mls @ 1,000 mls/hr IV .BOLUS ONE Stop: 03/14/17 12:38 Last Admin: 03/14/17 15:00 Dose: Not Given Sodium Chloride (Normal Saline) 1,000 mls @ 125 mls/hr IV ASDIRECTED [facility] Last Admin: 03/15/17 07:31 Dose: 125 mls/hr Sodium Chloride (Normal Saline) 1,000 mls @ 1,000 mls/hr IV .Bolus ONE Stop: 03/14/17 14:07 Last Admin: 03/14/17 15:03 Dose: Not Given Sodium Chloride (Normal Saline) 500 mls @ 500 mls/hr IV .BOLUS [facility] Last Admin: 03/14/17 15:47 Dose: 500 mls/hr Magnesium Sulfate 4 gm/ Premix 100 mls @ 50 mls/hr IV ONETIME ONE Stop: 03/15/17 08:59 Last Admin: 03/15/17 07:43 Dose: 50 mls/hr Magnesium Sulfate 4 gm/ Premix 100 mls @ 50 mls/hr IV ONETIME ONE Stop: 03/16/17 09:59 Last Admin: 03/16/17 08:13 Dose: 50 mls/hr Sodium Chloride (Normal Saline) 500 mls @ 500 mls/hr IV .BOLUS [facility] Last Admin: 03/16/17 08:10 Dose: 500 mls/hr Sodium Chloride (Normal Saline) 1,000 mls @ 50 mls/hr IV ASDIRECTED [facility] Last Admin: 03/16/17 10:16 Dose: 50 mls/hr Sodium Chloride (Normal Saline) 1,000 mls @ 100 mls/hr IV ASDIRECTED [facility] Last Admin: 03/17/17 00:11 Dose: 100 mls/hr Pantoprazole Sodium 40 mg/ (Sodium Chloride) 10 mls @ 300 mls/hr IVPUSH DAILY [facility] Last Admin: 03/19/17 08:38 Dose: 300 mls/hr Potassium Chloride/Dextrose/Sod Cl (D5 Ns With 20 Meq Kcl) 1,000 mls @ 125 mls/ hr IV ASDIRECTED [facility] Last Admin: 03/19/17 00:14 Dose: 125 mls/hr Magnesium Sulfate 4 gm/ Premix 100 mls @ 50 mls/hr IV ONETIME ONE Stop: 03/19/17 09:25 Last Admin: 03/19/17 08:37 Dose: 50 mls/hr Insulin Aspart (Novolog) 0 unit SUBCUT ACBREAKFASTANDBED [facility] PRN Reason: Protocol Insulin Aspart (Novolog) 0 unit SUBCUT Q12H [facility] PRN Reason: Protocol Last Admin: 03/19/17 06:14 Dose: Not Given Ketorolac Tromethamine (Toradol) 15 mg IVPUSH Q6H [facility] Stop: 03/20/17 07:04 Last Admin: 03/16/17 06:34 Dose: 15 mg Lidocaine (Xylocaine-Mpf 2%) Confirm Administered Dose 10 ml .ROUTE .STK-MED ONE Stop: 03/14/17 07:28 Magnesium Chloride (Mag-64) 64 mg PO DAILY [facility] Last Admin: 03/18/17 09:09 Dose: Not Given Magnesium Chloride (Mag-64) 64 mg PO BID [facility] Last Admin: 03/18/17 21:15 Dose: 64 mg Metformin HCl (Glucophage Xr) 500 mg PO BIDMEALS [facility] Last Admin: 03/20/17 16:31 Dose: 500 mg Metoprolol Tartrate (Lopressor) 5 mg IVPUSH Q4H PRN PRN Reason: Other Last Admin: 03/15/17 15:11 Dose: 5 mg Midazolam HCl (Versed 1 Mg/Ml) Confirm Administered Dose 2 mg .ROUTE .STK-MED ONE Stop: 03/14/17 07:28 Neostigmine Methylsulfate (Neostigmine) Confirm Administered Dose 5 mg .ROUTE .STK-MED ONE Stop: 03/14/17 07:30 Ondansetron HCl (Zofran) Confirm Administered Dose 8 mg .ROUTE .STK-MED ONE Stop: 03/14/17 07:30 Ondansetron HCl (Zofran) 4 mg IVPUSH Q6H PRN PRN Reason: Nausea/Vomiting Last Admin: 03/19/17 00:10 Dose: 4 mg Oxycodone/Acetaminophen (Percocet 325-5 Mg) 2 tab PO Q4H PRN PRN Reason: Abdominal Pain Last Admin: 03/20/17 10:46 Dose: 2 tab Invokana 300 Mg 1 each PO DAILY [facility] Last Admin: 03/20/17 09:11 Dose: 1 each Phenol/Menthol (Chloraseptic Throat [place]) 1 ml MUCMEM Q2H PRN PRN Reason: Pain Propofol (Diprivan 20 Ml) Confirm Administered Dose 400 mg .ROUTE .STK-MED ONE Stop: 03/14/17 07:28 Propofol (Diprivan 20 Ml) Confirm Administered Dose 200 mg .ROUTE .STK-MED ONE Stop: 03/14/17 09:13 Rocuronium [place] (Zemuron) Confirm Administered Dose 100 mg .ROUTE .STK-MED ONE Stop: 03/14/17 07:30 Sodium Chloride (Saline Flush) 10 ml FLUSH ASDIRECTED PRN PRN Reason: Keep Vein Open Sodium Chloride (Saline Flush) 2.5 ml FLUSH ASDIRECTED PRN PRN Reason: Keep Vein Open Sodium Phosphate (Neutra-Phos) 250 mg PO QID [facility] Last Admin: 03/17/17 08:13 Dose: Not Given - Exam General: Reports: Alert, Oriented HEENT: Reports: Pupils Equal, Pupils Reactive Neck: Reports: Supple Lungs: Reports: Clear to Auscultation, Normal Respiratory Effort Cardiovascular: Reports: Regular Rate, Regular Rhythm GI/Abdominal Exam: Normal Bowel Sounds, Soft, Non-Tender, Other (Ecchymosis along lower incision. ) Skin: Reports: Warm, Dry, Intact Wound/Incisions: Reports: Other (Small amount of serosanguinous drainage from inferiro incision. ) Psy/Mental Status: Reports: Alert, Normal Affect, Normal Mood *Q Meaningful Use (DIS) - VTE *Q VTE Criteria *Q: - Stroke *Q Stroke Criteria *Q: - AMI *Q AMI Criteria *Q:
== END 2017-03-20 17:45 | disposition home or self-care (01) | DRG 221 ==
LOC: MW.MS 03-14 06:38 → MW.ICU 03-14 13:26 → MW.MS 03-18 18:04
PROVIDERS: ADMIT Surgery; ATTEND Surgery
PROC: 0DBM0ZZ Excision of Descending Colon, Open Approach (ICD-10-PCS; principal; 2017-03-14)
PROC: 0DBN0ZZ Excision of Sigmoid Colon, Open Approach (ICD-10-PCS; 2017-03-14)
DX: K57.32 Diverticulitis of large intestine without perforation or abscess without bleeding (principal); E83.42 Hypomagnesemia; K91.870 Postprocedural hematoma of a digestive system organ or structure following a digestive system procedure; E83.39 Other disorders of phosphorus metabolism; E11.9 Type 2 diabetes mellitus without complications; G47.30 Sleep apnea, unspecified; M62.838 Other muscle spasm; G89.18 Other acute postprocedural pain; Z79.899 Other long term (current) drug therapy
CPT/HCPCS: 00810; 36415; 74000; 74000-26; 74176; 74176-26; 80048; 82570; 82962; 83735; 84100; 84300; 85014; 85018; 85025; 85610; 85730; 86850; 86900; 86901; 86920; 86921; 86922; 88307; A9270-GY; C9113; J0690; J1170; J1650; J1885; J2250; J2405; J2543; J2704; J3010; J3360; J3475; J3480; J7040; J7050; J7120